=== PATIENT | male | born 1935 | race Caucasian/White ===

== ENCOUNTER 2019-03-09 15:53 | Inpatient (IN) | payer MEDICAID, MEDICARE ==
[~2019-03-09] VITALS: Ht 177.8 cm; Wt 101.6 kg
[~2019-03-09 15:53] MED LIST: ACET1TAB40 PO; ASPI-817 PO; ATOR40TA68 PO; CARV3.12 PO; OMEG100011 PO; TICA90TA PO
[2019-03-09] MEDS ORDERED: CEFAZOLIN 1 GM/50 ML (PMX) 50 ML IVPB SCH (16:00)
[2019-03-09] MEDS ORDERED: LACTATED RINGER'S 1,000 ML IV STA (16:00)
[2019-03-09] MEDS ORDERED: KETOROLAC 15 MG INJ IV STA (16:00)
[2019-03-09] MEDS ORDERED: DIPHTH/TET/ACEL PERTUSS (ADULT) 0.5 ML VIAL IM* ONE (16:00)
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
[2019-03-09] MEDS ORDERED: CLOP75TA19 PO (17:30)
[2019-03-09] MEDS ORDERED: METO-319 PO (17:30)
[2019-03-09] MEDS ORDERED: OXYCODONE/ACETAMINOPHEN (5/325) TAB PO ONE ×2 (17:30→20:30)
[2019-03-09] MEDS ORDERED: TAMS-14 PO (17:31)
[2019-03-09] MEDS ORDERED: ACETAMINOPHEN 325 MG TAB PO PRN (20:30)
[2019-03-09] MEDS ORDERED: NACL 0.9% 3 ML SYG IV SCH (20:30)
[2019-03-09] MEDS ORDERED: DOCUSATE SODIUM 100 MG CAP PO PRN (20:30)
[2019-03-09] MEDS ORDERED: ONDANSETRON 4 MG INJ ONE (21:00)
[2019-03-09] MEDS: ONDANSETRON 4 MG INJ IV PRN (21:03)
[2019-03-09 21:51] VITALS: BP 98/54; PULSE 88; RESP 18
[2019-03-09 22:00] VITALS: Ht 177.8 cm; Wt 101.6 kg
[2019-03-09] MEDS: SOD CHLORIDE 0.9% 1,000 ML IV SCH (23:04)
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
[2019-03-10] MEDS ORDERED: SOD CHLORIDE 0.9% 500 ML IV ONE
[2019-03-10] MEDS: morphine 2 MG INJ IV PRN ×3 (00:13→15:12)
[2019-03-10 02:27] VITALS: BP 116/57; PULSE 103; RESP 18
[2019-03-10] MEDS ORDERED: AL HYDROX/MG HYDROX/SIMETH 30 ML CUP PO PRN (03:00)
[2019-03-10 07:37] VITALS: BP 112/56; PULSE 93; RESP 18
[2019-03-10] MEDS: HYDROCODONE/APAP (5/325) TAB PO PRN (09:39)
--- NOTE | 2019-03-10 10:10 | CONS ---
Assessment/Plan Assessment/Plan Assessment/Plan (Daily) 1) L2 chance fracture 2) Diffuse idiopathic skeletal hyperostosis 84 year old male with L2 chance fracture and DISH. His TLICS score is 5, which means that internal fixation is recommended despite his advanced age. He has a history of cardiac stenting and clopidogrel use. He understands the risks/b enefits of surgery and would like to proceed. - OR tomorrow AM for T12-L4 fusion - Cardiac consult for risk stratification, postoperative management recs - Hold clopidogrel preop and x5 days postop - Will give platelets prior to skin incision - ICU x1 day postop Consultation Date/Type/Reason Admit Date/Time Mar 09, 2019 at 19:01 Date of Consultation: Mar 10, 2019 Type of Consult Neurosurgery Reason for Consultation L2 chance fracture Date/Time of Note DATE: 03/10/19 TIME: 10:00 Hx of Present Illness 84 year old male with history of cardiac stent in 2014, on plavix, who had a fall outside his house yesterday. He has a large right arm abrasion and was found on CT to have an L2 chance fracture and diffuse idiopathic skeletal hyperostosis. He has no weakness or numbness in his lower extremities. Past Medical History Home Meds Reported Medications Tamsulosin Hcl* (Flomax*) 0.4 Mg Cap.er.24h, 0.4 MG PO NEEDED, CAP 03/09/19 Clopidogrel Bisulfate* (Clopidogrel Bisulfate*) 75 Mg Tablet, 75 MG PO DAILY, #30 TAB 03/09/19 Metoprolol Succinate* (Toprol XL*) 50 Mg Tab.er.24h, 50 MG PO DAILY, #30 TAB 03/09/19 Discontinued Reported Medications [place]-3 Fatty Acids/Fish Oil* (Fish Oil *) 1,000 Mg Capsule, 1000 MG PO BID, CAP 01/20/15 Carvedilol* (Coreg*) 3.125 Mg Tablet, 3.125 MG PO BID, TAB 01/20/15 Atorvastatin* (Atorvastatin*) 40 Mg Tablet, 40 MG PO HS, TAB 01/20/15 Discontinued Scripts Acetaminophen-Codeine* (Acetaminophen-Cod #3*) 300-30 Mg Tab, 1 TAB PO Q4H PRN for PAIN, #15 TAB Prov:TAWNYA DONATO NP 11/25/15 Ticagrelor* (Brilinta*) 90 Mg Tablet, 90 MG PO BID for 30 Days Prov:KACY MURO GRAY MIXING OPERATOR 10/13/14 Aspirin* (Aspirin* EC) 81 Mg Tabec, 81 MG PO DAILY for 30 Days Prov:KACY MURO GRAY MIXING OPERATOR 10/13/14 Medications Current Medications Sodium Chloride 1,000 ml @ 75 mls/hr [id number] IV Last administered on 03/09/19 23:04; Admin Dose 75 MLS/HR; Start 03/10/19 at 00:00 IV Flush (NS 3 ml) 3 ml PER PROTOCOL IV ; Start 03/09/19 at 20:30 Ondansetron HCl (Zofran Inj) 4 mg Q6H PRN IV NAUSEA/VOMITING Last administered on 03/09/19 21:03; Admin Dose 4 MG; Start 03/09/19 at 20:30 Acetaminophen (Tylenol Tab) 650 mg Q6H PRN PO .PAIN 1-3 OR TEMP; Start 03/09/19 at 20:30 Acetaminophen/ Hydrocodone Bitart ([place] (5/325)) 1 tab Q6H PRN PO .MOD PAIN 4- 6 Last administered on 03/10/19at 09:39; Admin Dose 1 TAB; Start 03/09/19 at 20:30 Morphine Sulfate (morphine) 2 mg Q4H PRN IV .SEVERE PAIN 7-10 Last administered on 03/10/19at 08:28; Admin Dose 2 MG; Start 03/09/19 at 20:30 Docusate Sodium (Colace) 100 mg Q12H PRN PO .CONSTIPATION; Start 03/09/19 at 20:30 Bisacodyl (Dulcolax) 5 mg DAILY PRN PO .CONSTIPATION; Start 03/09/19 at 20:30 Al Hydrox/Mg Hydrox/Simethicone (Mag-Al Plus) 30 ml Q6H PRN PO GASTROINTESTINAL UPSET Last administered on 03/10/19 04:20; Admin Dose 30 ML; Start 03/10/19 at 03:00 Allergies: Coded Allergies: No Known Allergy (Unverified , 03/09/19) Social History Alcohol Use: none Smoking Status: Never smoker Drug Use: none Exam/Review of Systems Exam Vitals Vital Signs Date Temp Pulse Resp B/P (MAP) Pulse Ox O2 O2 Flow FiO2 Time Delivery Rate 03/10/19 98.7 93 18 112/56 94 07:37 (74) 03/09/19 Room Air 21:06 Intake and Output 03/09/19 03/09/19 03/10/19 1515:00 23:00 07:00 IntakeIntake Total 1075 ml OutputOutput Total 200 ml BalanceBalance 875 ml Exam 5/5 in bilateral lower extremities sensation intact Results Result Diagram: 03/10/19 0430 03/10/19 0430 Results 24hrs Laboratory Tests Test 03/09/19 16:30 03/09/19 22:49 03/10/19 04:30 White Blood Count 15.3 #H 16.8 H 13.7 H Red Blood Count 4.51 L 4.18 L 3.80 L Hemoglobin 13.7 L 12.6 L 11.6 L Hematocrit 41.2 L 38.3 L 34.8 L Mean Corpuscular Volume 91.4 91.6 91.6 Mean Corpuscular Hemoglobin 30.4 30.1 30.5 Mean Corpuscular Hemoglobin Concent 33.3 32.9 33.3 Red Cell Distribution Width 14.1 14.0 14.0 Platelet Count 300 285 269 Mean Platelet Volume 8.7 # 9.7 9.3 Immature Granulocytes % 1.800 H 0.700 H 0.400 Neutrophils % 79.7 H 88.1 H 85.4 H Lymphocytes % 9.8 L 2.5 L 5.3 L Monocytes % 7.5 8.3 8.8 Eosinophils % 0.7 0.3 0.0 Basophils % 0.5 0.1 0.1 Nucleated Red Blood Cells % 0.0 0.0 0.0 Immature Granulocytes # 0.280 H 0.110 H 0.060 H Neutrophils # 12.2 H 14.8 H 11.7 H Lymphocytes # 1.5 0.4 L 0.7 L Monocytes # 1.2 H 1.4 H 1.2 H Eosinophils # 0.1 0.1 0.0 Basophils # 0.1 0.0 0.0 Nucleated Red Blood Cells # 0.0 0.0 0.0 Prothrombin Time 14.1 Prothrombin Time Ratio 1.1 INR International Normalized Ratio 1.08 Activated Partial Thromboplast Time 31.5 Sodium Level 138 138 Potassium Level 4.4 4.7 Chloride Level 104 105 Carbon Dioxide Level 25 24 Anion Gap 9 9 Blood Urea Nitrogen 19 24 H Creatinine 0.96 0.89 Est Glomerular Filtrat Rate mL/min Glucose Level 122 160 Calcium Level 9.0 8.4 Total Bilirubin 0.7 0.7 Direct Bilirubin 0.00 0.00 Indirect Bilirubin 0.7 0.7 Aspartate Amino Transf (AST/SGOT) 27 31 Alanine Aminotransferase (ALT/SGPT) 23 26 Alkaline Phosphatase 79 57 Total Protein 7.2 6.3 Albumin 4.0 3.3 Globulin 3.20 3.00 Albumin/Globulin Ratio 1.25 1.10 Lipase 44 Segmented Neutrophils % (Manual) 80 H Band Neutrophils % (Manual) 5 H Lymphocytes % (Manual) 5 L Monocytes % (Manual) 10 Neutrophils # (Manual) 13.6 H Band Neutrophils # 0.8 H Lymphocytes (Manual) 0.8 Monocytes # (Manual) 1.6 H Platelet Estimate NORMAL Poikilocytosis 3+ Anisocytosis 1+ Hemoglobin A1c 5.7 Magnesium Level 1.9 Triglycerides Level 31 Cholesterol Level 134 LDL Cholesterol, Calculated 82 HDL Cholesterol 46 Cholesterol/HDL Ratio 2.9 Thyroid Stimulating Hormone (TSH) 1.200 Medications Medication Current Medications Sodium Chloride 1,000 ml @ 75 mls/hr [id number] IV Last administered on 03/09/19at 23:04; Admin Dose 75 MLS/HR; Start 03/10/19 at 00:00 IV Flush (NS 3 ml) 3 ml PER PROTOCOL IV ; Start 03/09/19 at 20:30 Ondansetron HCl (Zofran Inj) 4 mg Q6H PRN IV NAUSEA/VOMITING Last administered on 03/09/19at 21:03; Admin Dose 4 MG; Start 03/09/19 at 20:30 Acetaminophen (Tylenol Tab) 650 mg Q6H PRN PO .PAIN 1-3 OR TEMP; Start 03/09/19 at 20:30 Acetaminophen/ Hydrocodone Bitart ([place] (5/325)) 1 tab Q6H PRN PO .MOD PAIN 4- 6 Last administered on 03/10/19at 09:39; Admin Dose 1 TAB; Start 03/09/19 at 20:30 Morphine Sulfate (morphine) 2 mg Q4H PRN IV .SEVERE PAIN 7-10 Last administered on 03/10/19at 08:28; Admin Dose 2 MG; Start 03/09/19 at 20:30 Docusate Sodium (Colace) 100 mg Q12H PRN PO .CONSTIPATION; Start 03/09/19 at 20:30 Bisacodyl (Dulcolax) 5 mg DAILY PRN PO .CONSTIPATION; Start 03/09/19 at 20:30 Al Hydrox/Mg Hydrox/Simethicone (Mag-Al Plus) 30 ml Q6H PRN PO GASTROINTESTINAL UPSET Last administered on 03/10/19at 04:20; Admin Dose 30 ML; Start 03/10/19 at 03:00 REYNA STEELE MD Mar 10, 2019 10:10
--- NOTE | 2019-03-10 11:53 | PREAC ---
Date/Time of Note Date/Time of Note DATE: 03/10/19 TIME: 11:52 Anesthesia Eval and Record Evaluation Time Pre-Procedure Interview DATE: 03/10/19 TIME: 11:52 Age 84 Sex male NPO: 8 hrs Preoperative diagnosis L2 chance fracture Planned procedure T12 -L4 POSTERIOR FUSION Past Medical History Past Medical History: Includes Cardio: HTN, [place], CAD, PTCA/Stent Neuro: Other (Ankylosing spondylitis) GI: Obesity Surgery & Anesthesia Issues No known issue Meds Anticoagulation: No Beta Yanelis within 24 hr: No Reason Beta Yanelis not given: Pt. not on B-Yanelis Reported Medications Tamsulosin Hcl* (Flomax*) 0.4 Mg Cap.er.24h, 0.4 MG PO NEEDED, CAP 03/09/19 Clopidogrel Bisulfate* (Clopidogrel Bisulfate*) 75 Mg Tablet, 75 MG PO DAILY, #30 TAB 03/09/19 Metoprolol Succinate* (Toprol XL*) 50 Mg Tab.er.24h, 50 MG PO DAILY, #30 TAB 03/09/19 Discontinued Reported Medications [place]-3 Fatty Acids/Fish Oil* (Fish Oil *) 1,000 Mg Capsule, 1000 MG PO BID, CAP 01/20/15 Carvedilol* (Coreg*) 3.125 Mg Tablet, 3.125 MG PO BID, TAB 01/20/15 Atorvastatin* (Atorvastatin*) 40 Mg Tablet, 40 MG PO HS, TAB 01/20/15 Discontinued Scripts Acetaminophen-Codeine* (Acetaminophen-Cod #3*) 300-30 Mg Tab, 1 TAB PO Q4H PRN for PAIN, #15 TAB Prov:TAWNYA DONATO NP 11/25/15 Ticagrelor* (Brilinta*) 90 Mg Tablet, 90 MG PO BID for 30 Days Prov:KACY MURO PORCELAIN SLUSHER 10/13/14 Aspirin* (Aspirin* EC) 81 Mg Tabec, 81 MG PO DAILY for 30 Days Prov:KACY MURO PORCELAIN SLUSHER 10/13/14 Current Medications Sodium Chloride 1,000 ml @ 75 mls/hr [id number] IV Last administered on 03/09/19at 23:04; Admin Dose 75 MLS/HR; Start 03/10/19 at 00:00 IV Flush (NS 3 ml) 3 ml PER PROTOCOL IV ; Start 03/09/19 at 20:30 Ondansetron HCl (Zofran Inj) 4 mg Q6H PRN IV NAUSEA/VOMITING Last administered on 03/09/19at 21:03; Admin Dose 4 MG; Start 03/09/19 at 20:30 Acetaminophen (Tylenol Tab) 650 mg Q6H PRN PO .PAIN 1-3 OR TEMP; Start 03/09/19 at 20:30 Acetaminophen/ Hydrocodone Bitart ([place] (5/325)) 1 tab Q6H PRN PO .MOD PAIN 4- 6 Last administered on 03/10/19at 09:39; Admin Dose 1 TAB; Start 03/09/19 at 20:30 Morphine Sulfate (morphine) 2 mg Q4H PRN IV .SEVERE PAIN 7-10 Last administered on 03/10/19at 08:28; Admin Dose 2 MG; Start 03/09/19 at 20:30 Docusate Sodium (Colace) 100 mg Q12H PRN PO .CONSTIPATION; Start 03/09/19 at 20:30 Bisacodyl (Dulcolax) 5 mg DAILY PRN PO .CONSTIPATION; Start 03/09/19 at 20:30 Al Hydrox/Mg Hydrox/Simethicone (Mag-Al Plus) 30 ml Q6H PRN PO GASTROINTESTINAL UPSET Last administered on 03/10/19at 04:20; Admin Dose 30 ML; Start 03/10/19 at 03:00 Meds reviewed: Yes Allergies Coded Allergies: No Known Allergy (Unverified , 03/09/19) Allergies Reviewed: Yes Labs/Studies Labs Reviewed: Reviewed by anesthesiologist Result Diagram: 03/10/19 0430 03/10/19 0430 Laboratory Tests 03/10/19 04:30 test: N/A Pre-procedure Exam Last vitals Vital Signs Date Temp Pulse Resp B/P (MAP) Pulse Ox O2 O2 Flow FiO2 Time Delivery Rate 03/10/19 98.7 93 18 112/56 94 07:37 (74) 03/09/19 Room Air 21:06 Airway: Adequate mouth opening Mallampati: Mallampati II Teeth: Normal Lung: Normal Heart: Normal ASA Physical Status ASA physical status: 3 Emergency: None Planned Anesthetic General/MAC: ETT Pre-operative Attestations Prior to commencing anesthesia and surgery, the patient was re-evaluated, there was verification of: *The patient's identity *The results of appropriate recent lab work and preoperative vital signs *The above evaluation not changing prior to induction *Anesthetic plan, risk benefits, alternative and complications discussed with patient/family; questions answered; patient/family understands, accepts and wishes to proceed. JOSE KOROMA Mar 10, 2019 11:53
--- NOTE | 2019-03-10 12:02 | PN ---
Date/Time of Note Date/Time of Note DATE: 03/10/19 TIME: 11:56 Assessment/Plan VTE Prophylaxis Risk score (from Ns)>0 risk: 6 SCD applied (from Ns): Yes Pharmacological prophylaxis: NA/contraindicated Pharm contraindication: bleeding Lines/Catheters IV Catheter Type (from Nrsg): Peripheral IV Assessment/Plan Assessment/Plan 84 yo man with history of VA 5 years ago with PCI on plavix who presents with traumatic fracture of L2 vertebral body. # acute fracture of L2 vertebral body: - With adjacent paraspinal hematoma. - Pain management. - Bed rest until OR - Dr. Quesada following. - NPO except meds in case of procedure. - The patient reports good cardiovascular fitness; can climb two flights of stairs without dyspnea or chest pain so METS>4. Medically optimized for high risk spinal surgery with no further medical or cardiac workup. # Ankylosing spondylitis: seen on CT scan. Recommendation for spinal MRI in the setting of fracture. Will defer further MRI imaging to neurosurgery. # CAD: - hx of VA 5 years ago, on plavix but had skin rash to aspirin so he isn't taking it. - Currently holding plavix in the setting of hematoma plus pre-operatively. - Will consult Dr. Peña also. # dvt and gi prop: scds, no gi proph indicated Result Diagram: 03/10/1942903/10/19429 Subjective 24 Hr Interval Summary Free Text/Dictation No acute overnight events. Patient feeling well. Plan for OR. Exam/Review of Systems Exam Vitals Vital Signs Date Temp Pulse Resp B/P (MAP) Pulse Ox O2 O2 Flow FiO2 Time Delivery Rate 03/10/19 98.7 93 18 112/56 94 07:37 (74) 03/09/19 Room Air 21:06 Intake and Output 03/09/19 03/09/19 03/10/19 1515:00 23:00 07:00 IntakeIntake Total 1075 ml OutputOutput Total 200 ml BalanceBalance 875 ml Exam General: Obese man currently lying in bed, no acute distress HEENT: Atraumatic, normocephalic. The pupils are equal, round and reactive. Extraocular motor are intact Neck: Supple with full range of motion. No rigidity or meningismus Chest: Nontender Lungs: Clear to auscultation bilaterally no crackles rales or wheezing Heart: Regular rate and rhythm, 3/6 systolic ejection murmur loudest at LLSB. Abdomen: Soft , nontender, nondistended , bowel sounds are present. No guarding no rebound tenderness , No masses or organomegaly. No costovertebral temporal angle mass Extremities: Normal to inspection, no edema no cyanosis Skin: Extensive bruising of the back Results Results 24hrs Laboratory Tests Test 03/09/19 16:30 03/09/19 22:49 03/10/19 04:30 White Blood Count 15.3 #H 16.8 H 13.7 H Red Blood Count 4.51 L 4.18 L 3.80 L Hemoglobin 13.7 L 12.6 L 11.6 L Hematocrit 41.2 L 38.3 L 34.8 L Mean Corpuscular Volume 91.4 91.6 91.6 Mean Corpuscular Hemoglobin 30.4 30.1 30.5 Mean Corpuscular Hemoglobin Concent 33.3 32.9 33.3 Red Cell Distribution Width 14.1 14.0 14.0 Platelet Count 300 285 269 Mean Platelet Volume 8.7 # 9.7 9.3 Immature Granulocytes % 1.800 H 0.700 H 0.400 Neutrophils % 79.7 H 88.1 H 85.4 H Lymphocytes % 9.8 L 2.5 L 5.3 L Monocytes % 7.5 8.3 8.8 Eosinophils % 0.7 0.3 0.0 Basophils % 0.5 0.1 0.1 Nucleated Red Blood Cells % 0.0 0.0 0.0 Immature Granulocytes # 0.280 H 0.110 H 0.060 H Neutrophils # 12.2 H 14.8 H 11.7 H Lymphocytes # 1.5 0.4 L 0.7 L Monocytes # 1.2 H 1.4 H 1.2 H Eosinophils # 0.1 0.1 0.0 Basophils # 0.1 0.0 0.0 Nucleated Red Blood Cells # 0.0 0.0 0.0 Prothrombin Time 14.1 Prothrombin Time Ratio 1.1 INR International Normalized Ratio 1.08 Activated Partial Thromboplast Time 31.5 Sodium Level 138 138 Potassium Level 4.4 4.7 Chloride Level 104 105 Carbon Dioxide Level 25 24 Anion Gap 9 9 Blood Urea Nitrogen 19 24 H Creatinine 0.96 0.89 Est Glomerular Filtrat Rate mL/min Glucose Level 122 160 Calcium Level 9.0 8.4 Total Bilirubin 0.7 0.7 Direct Bilirubin 0.00 0.00 Indirect Bilirubin 0.7 0.7 Aspartate Amino Transf (AST/SGOT) 27 31 Alanine Aminotransferase (ALT/SGPT) 23 26 Alkaline Phosphatase 79 57 Total Protein 7.2 6.3 Albumin 4.0 3.3 Globulin 3.20 3.00 Albumin/Globulin Ratio 1.25 1.10 Lipase 44 Segmented Neutrophils % (Manual) 80 H Band Neutrophils % (Manual) 5 H Lymphocytes % (Manual) 5 L Monocytes % (Manual) 10 Neutrophils # (Manual) 13.6 H Band Neutrophils # 0.8 H Lymphocytes (Manual) 0.8 Monocytes # (Manual) 1.6 H Platelet Estimate NORMAL Poikilocytosis 3+ Anisocytosis 1+ Hemoglobin A1c 5.7 Magnesium Level 1.9 Triglycerides Level 31 Cholesterol Level 134 LDL Cholesterol, Calculated 82 HDL Cholesterol 46 Cholesterol/HDL Ratio 2.9 Thyroid Stimulating Hormone (TSH) 1.200 Medications Medication Current Medications Sodium Chloride 1,000 ml @ 75 mls/hr [id number] IV Last administered on 03/09/19at 23:04; Admin Dose 75 MLS/HR; Start 03/10/19 at 00:00 IV Flush (NS 3 ml) 3 ml PER PROTOCOL IV ; Start 03/09/19 at 20:30 Ondansetron HCl (Zofran Inj) 4 mg Q6H PRN IV NAUSEA/VOMITING Last administered on 03/09/19at 21:03; Admin Dose 4 MG; Start 03/09/19 at 20:30 Acetaminophen (Tylenol Tab) 650 mg Q6H PRN PO .PAIN 1-3 OR TEMP; Start 03/09/19 at 20:30 Acetaminophen/ Hydrocodone Bitart ([place] (5/325)) 1 tab Q6H PRN PO .MOD PAIN 4- 6 Last administered on 03/10/19at 09:39; Admin Dose 1 TAB; Start 03/09/19 at 20:30 Morphine Sulfate (morphine) 2 mg Q4H PRN IV .SEVERE PAIN 7-10 Last administered on 03/10/19at 08:28; Admin Dose 2 MG; Start 03/09/19 at 20:30 Docusate Sodium (Colace) 100 mg Q12H PRN PO .CONSTIPATION; Start 03/09/19 at 20:30 Bisacodyl (Dulcolax) 5 mg DAILY PRN PO .CONSTIPATION; Start 03/09/19 at 20:30 Al Hydrox/Mg Hydrox/Simethicone (Mag-Al Plus) 30 ml Q6H PRN PO GASTROINTESTINAL UPSET Last administered on 03/10/19at 04:20; Admin Dose 30 ML; Start 03/10/19 at 03:00 MICKEY CHAMBERS MD Mar 10, 2019 12:02
--- NOTE | 2019-03-10 12:29 | RADRPT ---
Vent Rate: 92 bpm RR Interval: 656 msec FL Interval: 191 msec QRS Duration: 93 msec QT Interval: 362 msec QTC Interval: 447 msec P-R-T [place]: 61 - -37 - 52 degrees Sinus rhythm...normal P axis, V-rate 50- 99 Left axis deviation...QRS axis (-30,-90) Electronically Signed By: Jerod Morales
[2019-03-10] MEDS: SOD CHLORIDE 0.9% 1,000 ML IV SCH (13:20)
[2019-03-10 14:12] VITALS: BP 120/58; PULSE 93; RESP 18
[2019-03-10] MEDS ORDERED: morphine 4 MG/ML VIAL IV STA (16:41)
[2019-03-10] MEDS: ONDANSETRON 4 MG INJ IV PRN (17:16)
--- NOTE | 2019-03-10 18:52 | RADRPT ---
Echocardiogram Report Patient Name: MAL BENZPatient ID: [id number] : 1935 (84y 1m)Study Date: 03/10/2019 1:42:43 PM Gender: MAccession #: [id number] Tech: Galo Atkins [facility] Location: [address] Ref.Physician: MICKEY PEÑA Height(Cm): BSA: Weight(Kg): Quality: AdequateOrder Physician: MICKEY PEÑA Account #: Procedures: Echocardiographic Report: Transthoracic echocardiogram with complete 2D, M-Mode, and doppler examination. Indications: Pre-op. Measurements: 2D/M Mode Doppler Measurement Value Normal Range Measurement Value Normal Range LVIDd 2D 4.0 [ 4.2 - 5.8 ] cm JESUS ALBERTO VTI 1.5 [ 2.0 - 4.0 ] cm2 LVIDs 2D 2.7 [ 2.5 - 4.0 ] cm AV Mean Tai 1.8 [ 70.0 - 90.0 ] cm/sec LVPWd 2D 1.3 [ 0.6 - 1.0 ] cm AV Mean PG 15.0 [ 2.0 - 4.0 ] mmHg IVSd 2D 1.5 [ 0.6 - 1.0 ] cm AV VTI 51.0 cm AoR Diam 2D 3.2 [ 2.6 - 3.4 ] cm LVOT Mean Tai 0.8 [ 60.0 - 80.0 ] cm/sec EDV 2D 69.2 [ 62.0 - 150.0 ] ml LVOT Mean PG 3.0 [ 1.0 - 3.0 ] mmHg ESV 2D 26.5 [ 21.0 - 61.0 ] ml LVOT Peak Tai 1.2 [ 70.0 - 110.0 ] cm/sec EF 2D 61.7 [ 52.0 - 72.0 ] percent LVOT Peak PG 5.0 [ 2.0 - 6.0 ] mmHg LA Dimen 2D 4.3 [ 3.0 - 4.0 ] cm LVOT VTI 24.8 [ 20.0 - 30.0 ] cm LVOT Diam 2.0 [ 2.3 - 2.9 ] cm MV E Peak Tai 0.9 [ 60.0 - 130.0 ] cm/sec MV A Peak Tai 1.2 [ 100.0 - 120.0 ] cm/sec MV E/A 0.7 [ 0.8 - 1.5 ] ratio MV Decel Time 190 [ 104 - 258 ] msec Lat E` Tai 0.1 [ 10.0 - 15.0 ] cm/sec Lateral E/E` 9.7 [ 1.0 - 2.0 ] ratio MV E/A 0.7 [ 0.8 - 1.5 ] ratio TR Peak Tai 2.5 [ 100.0 - 280.0 ] cm/sec TR Peak PG 25.0 mmHg RVSP 28.0 [ 10.0 - 36.0 ] mmHg Findings: Left Ventricle: Normal left ventricular systolic function. Normal left ventricular cavity size. Moderate asymmetric septal hypertrophy. Ejection fraction is visually estimated at 60 %. Tissue Doppler/Mitral Doppler indices are consistent with impaired relaxation (Stage I diastolic dysfunction). Right Ventricle: Normal right ventricular size. Normal right ventricular systolic function. Left Atrium: There is mild enlargement of left atrium. Right Atrium: The right atrium is normal in size. Mitral Valve: Mild mitral leaflet calcification. Mild mitral annular calcification. Trace mitral regurgitation. Aortic Valve: Mild aortic stenosis. Aortic valve Max velocity 2.58 m/sec. Max PG 26.70 mmHg. Mean PG 15.00 mmHg. Aortic valve area 1.53 cm2. Aortic cusps appear moderately calcified. Tricuspid Valve: Normal appearance of the tricuspid valve. The estimated Peak RVSP is 28 mmHg. There is mild tricuspid regurgitation. Pericardium: Normal pericardium with no significant pericardial effusion. There is an anterior echo free space consistent with epicardial fat pad. Aorta: Normal aortic root. IVC: Normal size and normal respiratory collapse consistent with normal right atrial pressure. Conclusions: Normal left ventricular systolic function. Normal left ventricular cavity size. Moderate asymmetric septal hypertrophy. Ejection fraction is visually estimated at 60 %. Tissue Doppler/Mitral Doppler indices are consistent with impaired relaxation (Stage I diastolic dysfunction). There is mild enlargement of left atrium. Mild mitral leaflet calcification. Mild mitral annular calcification. Trace mitral regurgitation. Mild aortic stenosis. Aortic valve Max velocity 2.58 m/sec. Max PG 26.70 mmHg. Mean PG 15.00 mmHg. Aortic valve area 1.53 cm2. Aortic cusps appear moderately calcified. Normal appearance of the tricuspid valve. The estimated Peak RVSP is 28 mmHg. There is mild tricuspid regurgitation. Electronically Signed By: Mickey Peña 2019-03-10 18:51:25 PDT
[2019-03-10 20:06] VITALS: BP 123/58; PULSE 100; RESP 20; RESP 90
[2019-03-11] VITALS (31 sets, daily range): BP systolic 94–148; BP diastolic 51–81; PULSE 88–136; RESP 9–27
[2019-03-11] MEDS: SOD CHLORIDE 0.9% 1,000 ML IV SCH ×2 (04:10→18:36)
[2019-03-11] MEDS ORDERED: GELATIN SIZE 100 SPONGE ONE (06:54)
[2019-03-11] MEDS ORDERED: THROMBIN 5000 UNIT VIAL ONE (06:54)
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
[2019-03-11] MEDS ORDERED: FAMOTIDINE 20 MG INJ ONE (08:46)
[2019-03-11] MEDS ORDERED: PROPOFOL 20 ML ONE (08:46)
[2019-03-11] MEDS ORDERED: DEXAMETHASONE 4 MG/ML 5 ML INJ ONE (08:46)
[2019-03-11] MEDS ORDERED: LIDOCAINE 2% (SDV) 5 ML INJ ONE (08:46)
[2019-03-11] MEDS ORDERED: CEFAZOLIN 1 GM INJ ONE (08:46)
[2019-03-11] MEDS ORDERED: ONDANSETRON 4 MG INJ ONE (08:46)
[2019-03-11] MEDS ORDERED: SUCCINYLCHOLINE CHLORIDE 100 MG/5 ML SYG IV ONE (08:46)
[2019-03-11] MEDS ORDERED: ROCURONIUM 50 MG INJ ONE ×2 (08:46→11:15)
[2019-03-11] MEDS ORDERED: FENTAnyl 50 MCG/ML VIAL IV PRN ×3 (09:30→13:30)
[2019-03-11] MEDS ORDERED: ONDANSETRON 4 MG INJ IV PRN ×2 (09:30→12:30)
[2019-03-11] MEDS ORDERED: HYDROmorphONE 0.5 MG/0.5 ML SYG IV PRN ×2 (09:30)
[2019-03-11] MEDS ORDERED: MEPERIDINE 25 MG INJ IV PRN ×2 (09:30→12:30)
[2019-03-11] MEDS ORDERED: THROMBIN 5000 UNIT VIAL ZFS ONE (09:53)
[2019-03-11] MEDS ORDERED: SURGIFOAM POWDER 1 GM KIT TOP ONE (09:53)
[2019-03-11] MEDS ORDERED: PHENYLephrine (100 MCG/ML) 10ML SYG ONE (10:39)
[2019-03-11] MEDS ORDERED: SUGAMMADEX SODIUM 200 MG/2 ML VIAL IV ONE ×2 (11:56→11:58)
[2019-03-11] MEDS ORDERED: BACITRACIN/POLYMYXIN 28.35 GM OINT TOP ONE (12:00)
[2019-03-11] MEDS ORDERED: HYDROmorphONE 1 MG/5 ML IV SYRINGE IV PRN ×3 (12:30)
[2019-03-11] MEDS ORDERED: PROCHLORPERAZINE 10 MG INJ IV PRN (12:30)
--- NOTE | 2019-03-11 12:37 | PAC ---
Date/Time of Note Date/Time of Note DATE: 03/11/19 TIME: 12:36 Post-Anesthesia Notes Post-Anesthesia Note Last documented vital signs Vital Signs Date Temp Pulse Resp B/P (MAP) Pulse Ox O2 O2 Flow FiO2 Time Delivery Rate 03/11/19 115 126/57 94 Room Air 06:00 (80) 03/11/19 98.6 02:40 03/10/19 20 20:06 Activity: WNL Respiratory function: WNL Cardiovascular function: WNL Mental status: Baseline Pain reasonably controlled: Yes Hydration appropriate: Yes Nausea/Vomiting absent: Yes Comments BP: 140/78 HR: 93 RR: 15 T: 98.4 SaO2: 97% ARCADIO GALAVIZ MD Mar 11, 2019 12:37
[2019-03-11] MEDS ORDERED: LABETALOL HCL 20MG INJ IV PRN (13:00)
[2019-03-11] MEDS: CEFAZOLIN 1 GM/50 ML (PMX) 50 ML IVPB SCH ×2 (14:49→21:13)
--- NOTE | 2019-03-11 14:59 | RADRPT ---
Vent Rate: 92 bpm RR Interval: 656 msec AR Interval: 191 msec QRS Duration: 93 msec QT Interval: 362 msec QTC Interval: 447 msec P-R-T [place]: 61 - -37 - 52 degrees Sinus rhythm...normal P axis, V-rate 50- 99 Left axis deviation...QRS axis (-30,-90) Electronically Signed By: Jerod Morales
--- NOTE | 2019-03-11 15:34 | PN ---
Date/Time of Note Date/Time of Note DATE: 03/11/19 TIME: 15:31 Assessment/Plan VTE Prophylaxis Risk score (from Ns)>0 risk: 7 [place] [facility] [place] Pharmacological prophylaxis: NA/contraindicated Pharm contraindication: surgical contra Lines/Catheters IV Catheter Type (from Nrsg): Peripheral IV Assessment/Plan Assessment/Plan 84 yo man with history of OR 5 years ago with PCI on plavix who presents with traumatic fracture of L2 vertebral body. # acute fracture of L2 vertebral body: - With adjacent paraspinal hematoma. - Pain management. - Dr. Quesada following. - s/p operative fixation 03/11 # Ankylosing spondylitis: seen on CT scan. Recommendation for spinal MRI in the setting of fracture. Will defer further MRI imaging to neurosurgery. # CAD: - hx of OR 5 years ago, on plavix but had skin rash to aspirin so he isn't taking it. - Currently holding plavix in the setting of hematoma plus pre-operatively. - Dr Peña following # dvt and gi prop: scds, no gi proph indicated Result Diagram: 03/10/19 0430 03/10/19 0430 Subjective 24 Hr Interval Summary Free Text/Dictation Taken for surgery this morning. Seen in PACU afterwards, confused. Admit to ICU. Exam/Review of Systems Exam Vitals Vital Signs Date Temp Pulse Resp B/P (MAP) Pulse Ox O2 O2 Flow FiO2 Time Delivery Rate 03/11/19 92 14 97/61 (73) 97 Nasal 2.0 14:01 Cannula 03/11/19 98.2 13:26 Intake and Output 03/10/19 03/10/19 03/11/19 1515:00 23:00 07:00 IntakeIntake Total 750 ml 140 ml OutputOutput Total 150 ml 100 ml 50 ml BalanceBalance -150 ml 650 ml 90 ml Exam General: Obese man currently lying in bed, no acute distress HEENT: Atraumatic, normocephalic. The pupils are equal, round and reactive. Extraocular motor are intact Neck: Supple with full range of motion. No rigidity or meningismus Chest: Nontender Lungs: Clear to auscultation bilaterally no crackles rales or wheezing Heart: Regular rate and rhythm, 3/6 systolic ejection murmur loudest at LLSB. Abdomen: Soft , nontender, nondistended , bowel sounds are present. No guarding no rebound tenderness , No masses or organomegaly. No costovertebral temporal angle mass Extremities: Normal to inspection, no edema no cyanosis Skin: Extensive bruising of the back Results Results 24hrs Laboratory Tests Test 03/11/19 04:27 Triglycerides Level 51 Cholesterol Level 125 LDL Cholesterol, Calculated 71 HDL Cholesterol 44 Cholesterol/HDL Ratio 2.8 Medications Medication Current Medications Sodium Chloride 1,000 ml @ 100 mls/hr Q10H IV Last administered on 03/11/19at 04:10; Admin Dose 75 MLS/HR; Start 03/10/19 at 00:00 IV Flush (NS 3 ml) 3 ml PER PROTOCOL IV ; Start 03/09/19 at 20:30 Ondansetron HCl (Zofran Inj) 4 mg Q6H PRN IV NAUSEA/VOMITING Last administered on 03/10/19at 17:16; Admin Dose 4 MG; Start 03/09/19 at 20:30 Acetaminophen (Tylenol Tab) 650 mg Q6H PRN PO .PAIN 1-3 OR TEMP; Start 03/09/19 at 20:30 Acetaminophen/ Hydrocodone Bitart ([place] (5/325)) 1 tab Q6H PRN PO .MOD PAIN 4- 6 Last administered on 03/10/19at 09:39; Admin Dose 1 TAB; Start 03/09/19 at 20:30 Morphine Sulfate (morphine) 2 mg Q4H PRN IV .SEVERE PAIN 7-10 Last administered on 03/10/19at 15:12; Admin Dose 2 MG; Start 03/09/19 at 20:30 Docusate Sodium (Colace) 100 mg Q12H PRN PO .CONSTIPATION; Start 03/09/19 at 20:30 Bisacodyl (Dulcolax) 5 mg DAILY PRN PO .CONSTIPATION; Start 03/09/19 at 20:30 Al Hydrox/Mg Hydrox/Simethicone (Mag-Al Plus) 30 ml Q6H PRN PO GASTROINTESTINAL UPSET Last administered on 03/10/19at 04:20; Admin Dose 30 ML; Start 03/10/19 at 03:00 Hydromorphone HCl (Dilaudid) 0.2 mg PACU PRN IV MILD PAIN 1-3; Start 03/11/19 at 12:30; Stop 03/11/19 at 18:00 Hydromorphone HCl (Dilaudid) 0.4 mg PACU PRN IV MOD PAIN 4-6 Last administered on 03/11/19at 14:52; Admin Dose 0.4 MG; Start 03/11/19 at 12:30; Stop 03/11/19 at 18:00 Hydromorphone HCl (Dilaudid) 0.6 mg PACU PRN IV SEVERE PAIN 7-10; Start 03/11/19 at 12:30; Stop 03/11/19 at 18:00 Fentanyl (Sublimaze) 25 mcg PACU ORDER PRN IV MILD PAIN 1-3 Last administered on 03/11/19at 14:53; Admin Dose 25 MCG; Start 03/11/19 at 12:30; Stop 03/11/19 at 18:00 Ondansetron HCl (Zofran Inj) 4 mg PACU ORDER PRN IV NAUSEA/VOMITING; Start 03/11/19 at 12:30; Stop 03/11/19 at 18:00 Prochlorperazine (Compazine Inj) 5 mg PACU ORDER PRN IV NAUSEA/VOMITING; Start 03/11/19 at 12:30; Stop 03/11/19 at 18:00 Meperidine HCl (Demerol) 12.5 mg PACU ORDER PRN IV .RIGORS; Start 03/11/19 at 12:30; Stop 03/11/19 at 18:00 Labetalol HCl (Labetalol) 5 mg PACU ORDER PRN IV HIGH BLOOD PRESSURE; Start 03/11/19 at 13:00; Stop 03/11/19 at 18:00 Fentanyl (Sublimaze) 50 mcg Q2H PRN IV SEVERE PAIN LEVEL 7-10; Start 03/11/19 at 13:30 Cefazolin Sodium 50 ml @ 100 mls/hr Q8 IVPB Last administered on 03/11/19at 14:49; Admin Dose 100 MLS/HR; Start 03/11/19 at 14:00 MICKEY CHAMBERS MD Mar 11, 2019 15:34
[2019-03-11] MEDS: morphine 2 MG INJ IV PRN (19:02)
[2019-03-11] MEDS: HYDROCODONE/APAP (5/325) TAB PO PRN (20:37)
--- NOTE | 2019-03-11 21:00 | CONS ---
Assessment/Plan Assessment/Plan Hospital Course (Demo Recall) IMPRESSION: 1. Preoperative evaluation prior to surgery for traumatic L2 fracture with associated hematoma.-Now post- s/p t12-L4 arthrodesis 2. No portal hypertension, but on a beta carlos at baseline. 3. History of percutaneous transluminal coronary angioplasty and stent placement, most recently 2014.-NL EF by echo and no sig valve abnl 4. 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 5. Possible dyslipidemia by medications although the patient denies. 6. Traumatic L2 fracture. 7. History of lymphedema per patient, currently resolved. 8. Ankylosing spondylitis by CT. 9. Severe osteoarthritis. Recc: -IN ICU s/p surgery -holding plavix and ok as mutiple years s/p most recent stent placement -pain control -Continue abx prophyaxis -local wound care Consultation Date/Type/Reason Admit Date/Time Mar 09, 2019 at 19:01 Initial Consult Date 03/10/19 Type of Consult Cardiology Reason for Consultation preop Requesting Provider: MICKEY CHAMBERS MD Date/Time of Note DATE: 03/11/19 TIME: 20:56 Exam/Review of Systems Vital Signs Vitals Vital Signs Date Temp Pulse Resp B/P (MAP) Pulse Ox O2 O2 Flow FiO2 Time Delivery Rate 03/11/19 99 18 105/61 97 Nasal 2.0 18:00 (76) Cannula 03/11/19 98.4 17:55 Intake and Output 03/10/19 03/10/19 03/11/19 1515:00 23:00 07:00 IntakeIntake Total 750 ml 140 ml OutputOutput Total 150 ml 100 ml 50 ml BalanceBalance -150 ml 650 ml 90 ml Exam Exam Review of Systems: CONSTITUTIONAL: No fevers, chills. PULMONARY: No sob CARDIOVASCULAR: No chest pain/palpitations GASTROINTESTINAL: No nausea/vomiting. GENITOURINARY: No hematuria/dysuria. MUSCULOSKELETAL: mild back pain s/p surgery PSYCHIATRIC: The patient denies depression. NEUROLOGIC: No weakness Constitutional: alert Psych: no complaints Head: normocephalic ENMT: mucosa pink and moist Neck: supple, jvd (8 cm wter) Respiratory: clear to auscultation Cardiovascular: regular rate and rhythm Gastrointestinal: soft, non-tender Musculoskeletal: muscle tone (normal) Extremities: edema (none) Neurological: other (No focal deficits) Labs Result Diagram: 03/10/19 0430 03/10/19 0430 Results 24hrs Laboratory Tests Test 03/11/19 04:27 Triglycerides Level 51 Cholesterol Level 125 LDL Cholesterol, Calculated 71 HDL Cholesterol 44 Cholesterol/HDL Ratio 2.8 Medications Medications Current Medications Sodium Chloride 1,000 ml @ 100 mls/hr Q10H IV Last administered on 03/11/19at 18:36; Admin Dose 100 MLS/HR; Start 03/10/19 at 00:00 IV Flush (NS 3 ml) 3 ml PER PROTOCOL IV ; Start 03/09/19 at 20:30 Ondansetron HCl (Zofran Inj) 4 mg Q6H PRN IV NAUSEA/VOMITING Last administered on 03/10/19at 17:16; Admin Dose 4 MG; Start 03/09/19 at 20:30 Acetaminophen (Tylenol Tab) 650 mg Q6H PRN PO .PAIN 1-3 OR TEMP; Start 03/09/19 at 20:30 Acetaminophen/ Hydrocodone Bitart ([place] (5/325)) 1 tab Q6H PRN PO .MOD PAIN 4- 6 Last administered on 03/11/19at 20:37; Admin Dose 1 TAB; Start 03/09/19 at 20:30 Morphine Sulfate (morphine) 2 mg Q4H PRN IV .SEVERE PAIN 7-10 Last administered on 03/11/19at 19:02; Admin Dose 2 MG; Start 03/09/19 at 20:30 Docusate Sodium (Colace) 100 mg Q12H PRN PO .CONSTIPATION; Start 03/09/19 at 20:30 Bisacodyl (Dulcolax) 5 mg DAILY PRN PO .CONSTIPATION; Start 03/09/19 at 20:30 Al Hydrox/Mg Hydrox/Simethicone (Mag-Al Plus) 30 ml Q6H PRN PO GASTROINTESTINAL UPSET Last administered on 03/10/19at 04:20; Admin Dose 30 ML; Start 03/10/19 at 03:00 Fentanyl (Sublimaze) 50 mcg Q2H PRN IV SEVERE PAIN LEVEL 7-10; Start 03/11/19 at 13:30 Cefazolin Sodium 50 ml @ 100 mls/hr Q8 IVPB Last administered on 03/11/19at 14:49; Admin Dose 100 MLS/HR; Start 03/11/19 at 14:00 MICKEY SOLITARIO Mar 11, 2019 21:00
[2019-03-12] VITALS (24 sets, daily range): BP systolic 109–167; BP diastolic 42–99; PULSE 91–108; RESP 9–24
[2019-03-12] MEDS: SOD CHLORIDE 0.9% 1,000 ML IV SCH ×3 (02:50→17:18)
[2019-03-12] MEDS: HYDROCODONE/APAP (5/325) TAB PO PRN (05:03)
[2019-03-12] MEDS: CEFAZOLIN 1 GM/50 ML (PMX) 50 ML IVPB SCH ×3 (06:45→21:26)
--- NOTE | 2019-03-12 12:23 | CONS ---
Assessment/Plan Assessment/Plan Hospital Course (Demo Recall) IMPRESSION: 1. Preoperative evaluation prior to surgery for traumatic L2 fracture with associated hematoma.-Now post- s/p t12-L4 arthrodesis 2. No portal hypertension, but on a beta carlos at baseline. 3. History of percutaneous transluminal coronary angioplasty and stent placement, most recently 2014.-NL EF by echo and no sig valve abnl 4. 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 5. Possible dyslipidemia by medications although the patient denies. 6. Traumatic L2 fracture. 7. History of lymphedema per patient, currently resolved. 8. Ankylosing spondylitis by CT. 9. Severe osteoarthritis. Recc: -Still in ICU s/p surgery -holding plavix and ok as mutiple years s/p most recent stent placement -pain control -Continue abx prophyaxis -local wound care Consultation Date/Type/Reason Admit Date/Time Mar 09, 2019 at 19:01 Initial Consult Date 03/10/19 Type of Consult Cardiology Reason for Consultation preop, h/o stent Requesting Provider: MICKEY CHAMBERS MD Date/Time of Note DATE: 03/12/19 TIME: 12:21 Exam/Review of Systems Vital Signs Vitals Vital Signs Date Temp Pulse Resp B/P (MAP) Pulse Ox O2 O2 Flow FiO2 Time Delivery Rate 03/12/19 108 15 117/70 97 Nasal 2.0 11:00 (86) Cannula 03/12/19 97.8 08:00 Intake and Output 03/11/19 03/11/19 03/12/19 1515:00 23:00 07:00 IntakeIntake Total 2000 ml 100 ml 1450 ml OutputOutput Total 770 ml 750 ml 515 ml BalanceBalance 1230 ml -650 ml 935 ml Exam Exam Review of Systems: CONSTITUTIONAL: No fevers, chills. PULMONARY: No sob CARDIOVASCULAR: No chest pain/palpitations GASTROINTESTINAL: No nausea/vomiting. GENITOURINARY: No hematuria/dysuria. MUSCULOSKELETAL: No myagias/arthalgias. PSYCHIATRIC: The patient denies depression. NEUROLOGIC: No weakness Constitutional: alert Psych: no complaints Head: normocephalic ENMT: mucosa pink and moist Neck: supple, jvd (9 cm water) Respiratory: diminished breath sounds Cardiovascular: regular rate and rhythm Gastrointestinal: soft, non-tender Musculoskeletal: muscle tone (normal) Extremities: edema (none) Neurological: other (No focal deficits) Labs Result Diagram: 03/12/19 1008 03/12/19 1008 Results 24hrs Laboratory Tests Test 03/12/19 05:06 03/12/19 10:08 Lab Scanned Report BLOOD TRANSFUSION White Blood Count 12.2 H Red Blood Count 2.63 #L Hemoglobin 7.8 #L Hematocrit 24.1 #L Mean Corpuscular Volume 91.6 Mean Corpuscular Hemoglobin 29.7 Mean Corpuscular Hemoglobin Concent 32.4 Red Cell Distribution Width 14.5 Platelet Count 251 Mean Platelet Volume 9.2 Immature Granulocytes % 0.400 Neutrophils % 78.7 H Lymphocytes % 8.5 L Monocytes % 12.0 H Eosinophils % 0.2 Basophils % 0.2 Nucleated Red Blood Cells % 0.0 Immature Granulocytes # 0.050 H Neutrophils # 9.6 H Lymphocytes # 1.0 Monocytes # 1.5 H Eosinophils # 0.0 Basophils # 0.0 Nucleated Red Blood Cells # 0.0 Sodium Level 135 Potassium Level 4.3 Chloride Level 104 Carbon Dioxide Level 28 Anion Gap 3 L Blood Urea Nitrogen 16 Creatinine 0.76 Est Glomerular Filtrat Rate mL/min Glucose Level 131 Calcium Level 7.7 L Phosphorus Level 2.4 L Magnesium Level 1.9 Medications Medications Current Medications Sodium Chloride 1,000 ml @ 100 mls/hr Q10H IV Last administered on 03/12/19at 02:50; Admin Dose 100 MLS/HR; Start 03/10/19 at 00:00 IV Flush (NS 3 ml) 3 ml PER PROTOCOL IV ; Start 03/09/19 at 20:30 Ondansetron HCl (Zofran Inj) 4 mg Q6H PRN IV NAUSEA/VOMITING Last administered on 03/10/19at 17:16; Admin Dose 4 MG; Start 03/09/19 at 20:30 Acetaminophen (Tylenol Tab) 650 mg Q6H PRN PO .PAIN 1-3 OR TEMP; Start 03/09/19 at 20:30 Acetaminophen/ Hydrocodone Bitart ([place] (5/325)) 1 tab Q6H PRN PO .MOD PAIN 4- 6 Last administered on 03/12/19at 05:03; Admin Dose 1 TAB; Start 03/09/19 at 20:30 Morphine Sulfate (morphine) 2 mg Q4H PRN IV .SEVERE PAIN 7-10 Last administered on 03/11/19at 19:02; Admin Dose 2 MG; Start 03/09/19 at 20:30 Docusate Sodium (Colace) 100 mg Q12H PRN PO .CONSTIPATION; Start 03/09/19 at 20:30 Bisacodyl (Dulcolax) 5 mg DAILY PRN PO .CONSTIPATION; Start 03/09/19 at 20:30 Al Hydrox/Mg Hydrox/Simethicone (Mag-Al Plus) 30 ml Q6H PRN PO GASTROINTESTINAL UPSET Last administered on 03/10/19at 04:20; Admin Dose 30 ML; Start 03/10/19 at 03:00 Fentanyl (Sublimaze) 50 mcg Q2H PRN IV SEVERE PAIN LEVEL 7-10; Start 03/11/19 at 13:30 Cefazolin Sodium 50 ml @ 100 mls/hr Q8 IVPB Last administered on 03/12/19at 06:45; Admin Dose 100 MLS/HR; Start 03/11/19 at 14:00 MICKEY SOLITARIO Mar 12, 2019 12:23
--- NOTE | 2019-03-12 13:10 | PN ---
Date/Time of Note Date/Time of Note DATE: 03/12/19 TIME: 13:07 Assessment/Plan VTE Prophylaxis Risk score (from Ns)>0 risk: 10 SCD applied (from Ns): Yes Pharmacological prophylaxis: NA/contraindicated Pharm contraindication: surgical contra Lines/Catheters IV Catheter Type (from Nrsg): A Line Urinary Cath still in place: Yes Reason Cath still needed: other (indicate) (immobile) Assessment/Plan Assessment/Plan 84 yo man with history of [place] 5 years ago with PCI on plavix who presents with traumatic fracture of L2 vertebral body. # acute fracture of L2 vertebral body: - With adjacent paraspinal hematoma. - Pain management. - Dr. Quesada following. - s/p operative fixation 03/11 # Ankylosing spondylitis: seen on CT scan, confirmed on MRI. # CAD: - hx of NE 5 years ago, on plavix but had skin rash to aspirin so he isn't taking it. - Currently holding plavix in the setting of hematoma plus pre-operatively. Restart on POD #5. - Dr Peña following # dvt and gi prop: scds, no gi proph indicated Result Diagram: 03/12/19 1008 03/12/19 1008 Subjective 24 Hr Interval Summary Free Text/Dictation No acute overnight events. Patient awake, pain adequately controlled. Poor appetite. Exam/Review of Systems Exam Vitals Vital Signs Date Temp Pulse Resp B/P (MAP) Pulse Ox O2 O2 Flow FiO2 Time Delivery Rate 03/12/19 94 12:00 03/12/19 15 117/70 97 Nasal 2.0 11:00 (86) Cannula 03/12/19 97.8 08:00 Intake and Output 03/11/19 03/11/19 03/12/19 1515:00 23:00 07:00 IntakeIntake Total 2000 ml 100 ml 1450 ml OutputOutput Total 770 ml 750 ml 515 ml BalanceBalance 1230 ml -650 ml 935 ml Exam General: Obese man currently lying in bed, no acute distress HEENT: Atraumatic, normocephalic. The pupils are equal, round and reactive. Extraocular motor are intact Neck: Supple with full range of motion. No rigidity or meningismus Chest: Nontender Lungs: Clear to auscultation bilaterally no crackles rales or wheezing Heart: Regular rate and rhythm, 3/6 systolic ejection murmur loudest at LLSB. Abdomen: Soft , nontender, nondistended , bowel sounds are present. No guarding no rebound tenderness , No masses or organomegaly. No costovertebral temporal angle mass Extremities: Normal to inspection, no edema no cyanosis Skin: Extensive bruising of the back Results Results 24hrs Laboratory Tests Test 03/12/19 05:06 03/12/19 10:08 Lab Scanned Report BLOOD TRANSFUSION White Blood Count 12.2 H Red Blood Count 2.63 #L Hemoglobin 7.8 #L Hematocrit 24.1 #L Mean Corpuscular Volume 91.6 Mean Corpuscular Hemoglobin 29.7 Mean Corpuscular Hemoglobin Concent 32.4 Red Cell Distribution Width 14.5 Platelet Count 251 Mean Platelet Volume 9.2 Immature Granulocytes % 0.400 Neutrophils % 78.7 H Lymphocytes % 8.5 L Monocytes % 12.0 H Eosinophils % 0.2 Basophils % 0.2 Nucleated Red Blood Cells % 0.0 Immature Granulocytes # 0.050 H Neutrophils # 9.6 H Lymphocytes # 1.0 Monocytes # 1.5 H Eosinophils # 0.0 Basophils # 0.0 Nucleated Red Blood Cells # 0.0 Sodium Level 135 Potassium Level 4.3 Chloride Level 104 Carbon Dioxide Level 28 Anion Gap 3 L Blood Urea Nitrogen 16 Creatinine 0.76 Est Glomerular Filtrat Rate mL/min Glucose Level 131 Calcium Level 7.7 L Phosphorus Level 2.4 L Magnesium Level 1.9 Medications Medication Current Medications Sodium Chloride 1,000 ml @ 100 mls/hr Q10H IV Last administered on 03/12/19at 02:50; Admin Dose 100 MLS/HR; Start 03/10/19 at 00:00 IV Flush (NS 3 ml) 3 ml PER PROTOCOL IV ; Start 03/09/19 at 20:30 Ondansetron HCl (Zofran Inj) 4 mg Q6H PRN IV NAUSEA/VOMITING Last administered on 03/10/19at 17:16; Admin Dose 4 MG; Start 03/09/19 at 20:30 Acetaminophen (Tylenol Tab) 650 mg Q6H PRN PO .PAIN 1-3 OR TEMP; Start 03/09/19 at 20:30 Acetaminophen/ Hydrocodone Bitart ([place] (5/325)) 1 tab Q6H PRN PO .MOD PAIN 4- 6 Last administered on 03/12/19 05:03; Admin Dose 1 TAB; Start 03/09/19 at 20:30 Morphine Sulfate (morphine) 2 mg Q4H PRN IV .SEVERE PAIN 7-10 Last administered on 03/11/19at 19:02; Admin Dose 2 MG; Start 03/09/19 at 20:30 Docusate Sodium (Colace) 100 mg Q12H PRN PO .CONSTIPATION; Start 03/09/19 at 20:30 Bisacodyl (Dulcolax) 5 mg DAILY PRN PO .CONSTIPATION; Start 03/09/19 at 20:30 Al Hydrox/Mg Hydrox/Simethicone (Mag-Al Plus) 30 ml Q6H PRN PO GASTROINTESTINAL UPSET Last administered on 03/10/19 04:20; Admin Dose 30 ML; Start 03/10/19 at 03:00 Fentanyl (Sublimaze) 50 mcg Q2H PRN IV SEVERE PAIN LEVEL 7-10; Start 03/11/19 at 13:30 Cefazolin Sodium 50 ml @ 100 mls/hr Q8 IVPB Last administered on 03/12/19at 06:45; Admin Dose 100 MLS/HR; Start 03/11/19 at 14:00 MICKEY CHAMBERS MD Mar 12, 2019 13:10
--- NOTE | 2019-03-12 13:10 | CONS ---
Assessment/Plan Assessment/Plan Assessment/Plan (Daily) POD1 T12-L4 fusion for L2 chance fracture - Transfer 4W - PT/OT/OOB - Will plan to d/c drains on Friday - Keep abx for drain ppx - Bowel regimen Consultation Date/Type/Reason Admit Date/Time Mar 09, 2019 at 19:01 Initial Consult Date 03/10/19 Type of Consult Neurosurgery Requesting Provider: MICKEY CHAMBERS MD Date/Time of Note DATE: 03/12/19 TIME: 13:07 24 HR Interval Summary Free Text/Dictation POD1 T12-L4 fusion for L2 chance fracture Doing well, no weakness Exam/Review of Systems Exam Vitals Vital Signs Date Temp Pulse Resp B/P (MAP) Pulse Ox O2 O2 Flow FiO2 Time Delivery Rate 03/12/19 94 12:00 03/12/19 15 117/70 97 Nasal 2.0 11:00 (86) Cannula 03/12/19 97.8 08:00 Intake and Output 03/11/19 03/11/19 03/12/19 1515:00 23:00 07:00 IntakeIntake Total 2000 ml 100 ml 1450 ml OutputOutput Total 770 ml 750 ml 515 ml BalanceBalance 1230 ml -650 ml 935 ml Exam 01/31 HV1 - 200cc HV2 - 300cc Results Result Diagram: 03/12/19 1008 03/12/19 1008 Results 24hrs Laboratory Tests Test 03/12/19 05:06 03/12/19 10:08 Lab Scanned Report BLOOD TRANSFUSION White Blood Count 12.2 H Red Blood Count 2.63 #L Hemoglobin 7.8 #L Hematocrit 24.1 #L Mean Corpuscular Volume 91.6 Mean Corpuscular Hemoglobin 29.7 Mean Corpuscular Hemoglobin Concent 32.4 Red Cell Distribution Width 14.5 Platelet Count 251 Mean Platelet Volume 9.2 Immature Granulocytes % 0.400 Neutrophils % 78.7 H Lymphocytes % 8.5 L Monocytes % 12.0 H Eosinophils % 0.2 Basophils % 0.2 Nucleated Red Blood Cells % 0.0 Immature Granulocytes # 0.050 H Neutrophils # 9.6 H Lymphocytes # 1.0 Monocytes # 1.5 H Eosinophils # 0.0 Basophils # 0.0 Nucleated Red Blood Cells # 0.0 Sodium Level 135 Potassium Level 4.3 Chloride Level 104 Carbon Dioxide Level 28 Anion Gap 3 L Blood Urea Nitrogen 16 Creatinine 0.76 Est Glomerular Filtrat Rate mL/min Glucose Level 131 Calcium Level 7.7 L Phosphorus Level 2.4 L Magnesium Level 1.[address] demonstrates good screw placement and alignment from T12-L4 Medications Medication Current Medications Sodium Chloride 1,000 ml @ 100 mls/hr Q10H IV Last administered on 03/12/19 02:50; Admin Dose 100 MLS/HR; Start 03/10/19 at 00:00 IV Flush (NS 3 ml) 3 ml PER PROTOCOL IV ; Start 03/09/19 at 20:30 Ondansetron HCl (Zofran Inj) 4 mg Q6H PRN IV NAUSEA/VOMITING Last administered on 03/10/19 17:16; Admin Dose 4 MG; Start 03/09/19 at 20:30 Acetaminophen (Tylenol Tab) 650 mg Q6H PRN PO .PAIN 1-3 OR TEMP; Start 03/09/19 at 20:30 Acetaminophen/ Hydrocodone Bitart ([place] (5/325)) 1 tab Q6H PRN PO .MOD PAIN 4- 6 Last administered on 03/12/19 05:03; Admin Dose 1 TAB; Start 03/09/19 at 20:3 0 Morphine Sulfate (morphine) 2 mg Q4H PRN IV .SEVERE PAIN 7-10 Last administered on 03/11/19at 19:02; Admin Dose 2 MG; Start 03/09/19 at 20:30 Docusate Sodium (Colace) 100 mg Q12H PRN PO .CONSTIPATION; Start 03/09/19 at 20:30 Bisacodyl (Dulcolax) 5 mg DAILY PRN PO .CONSTIPATION; Start 03/09/19 at 20:30 Al Hydrox/Mg Hydrox/Simethicone (Mag-Al Plus) 30 ml Q6H PRN PO GASTROINTESTINAL UPSET Last administered on 03/10/19 04:20; Admin Dose 30 ML; Start 03/10/19 at 03:00 Fentanyl (Sublimaze) 50 mcg Q2H PRN IV SEVERE PAIN LEVEL 7-10; Start 03/11/19 at 13:30 Cefazolin Sodium 50 ml @ 100 mls/hr Q8 IVPB Last administered on 03/12/19at 06:45; Admin Dose 100 MLS/HR; Start 03/11/19 at 14:00 REYNA STEELE MD Mar 12, 2019 13:10
[2019-03-12] MEDS ORDERED: SOD CHLORIDE 0.9% 250 ML IV* ONE (13:19)
[2019-03-12] MEDS: CYCLOBENZAPRINE 10 MG TAB PO SCH ×2 (14:07→21:26)
[2019-03-13 00:08] VITALS: BP 148/71; PULSE 109; RESP 17
[2019-03-13] MEDS: CEFAZOLIN 1 GM/50 ML (PMX) 50 ML IVPB SCH ×3 (05:58→21:34)
[2019-03-13 07:47] VITALS: BP 145/69; PULSE 111; RESP 18
[2019-03-13] MEDS ORDERED: CYCLOBENZAPRINE 10 MG TAB PO SCH (09:00)
[2019-03-13] MEDS: ONDANSETRON 4 MG INJ IV PRN (09:21)
--- NOTE | 2019-03-13 09:46 | CONS ---
Assessment/Plan Assessment/Plan Assessment/Plan (Daily) POD2 T12-L4 fusion for L2 chance fx - d/c flexeril - continue PT/OT - d/c walters catheter - will d/c drains tomorrow - ancef while drains in place Consultation Date/Type/Reason Admit Date/Time Mar 09, 2019 at 19:01 Initial Consult Date 03/10/19 Type of Consult Neurosurgery Requesting Provider: MICKEY CHAMBERS MD Date/Time of Note DATE: 03/13/19 TIME: 09:44 24 HR Interval Summary Free Text/Dictation POD2 T12-L4 fusion for L2 chance fx Doing well, some confusion o/n - potentially d/t to flexeril Afebrile 1u prbcs yesterday for hgb 7.8 CT - optimal screw placement Exam/Review of Systems Exam Vitals Vital Signs Date Temp Pulse Resp B/P (MAP) Pulse Ox O2 O2 Flow FiO2 Time Delivery Rate 03/13/19 98.3 111 18 145/69 97 Nasal 07:47 (94) Cannula 03/12/19 2.0 20:00 Intake and Output 03/12/19 03/12/19 03/13/19 1414:59 22:59 06:59 IntakeIntake Total 1100 ml 400 ml 1030 ml OutputOutput Total 310 ml 490 ml 1570 ml BalanceBalance 790 ml -90 ml -540 ml Exam Tired/sleepy 01/31 HV1 - 30cc HV2 - 80cc Results Result Diagram: 03/12/19 1008 03/12/19 1008 Results 24hrs Laboratory Tests Test 03/12/19 10:08 03/13/19 07:17 White Blood Count 12.2 H Red Blood Count 2.63 #L Hemoglobin 7.8 #L Hematocrit 24.1 #L Mean Corpuscular Volume 91.6 Mean Corpuscular Hemoglobin 29.7 Mean Corpuscular Hemoglobin Concent 32.4 Red Cell Distribution Width 14.5 Platelet Count 251 Mean Platelet Volume 9.2 Immature Granulocytes % 0.400 Neutrophils % 78.7 H Lymphocytes % 8.5 L Monocytes % 12.0 H Eosinophils % 0.2 Basophils % 0.2 Nucleated Red Blood Cells % 0.0 Immature Granulocytes # 0.050 H Neutrophils # 9.6 H Lymphocytes # 1.0 Monocytes # 1.5 H Eosinophils # 0.0 Basophils # 0.0 Nucleated Red Blood Cells # 0.0 Sodium Level 135 Potassium Level 4.3 Chloride Level 104 Carbon Dioxide Level 28 Anion Gap 3 L Blood Urea Nitrogen 16 Creatinine 0.76 Est Glomerular Filtrat Rate mL/min Glucose Level 131 Calcium Level 7.7 L Phosphorus Level 2.4 L Magnesium Level 1.9 Lab Scanned Report BLOOD TRANSFUSION Medications Medication Current Medications IV Flush (NS 3 ml) 3 ml PER PROTOCOL IV ; Start 03/09/19 at 20:30 Ondansetron HCl (Zofran Inj) 4 mg Q6H PRN IV NAUSEA/VOMITING Last administered on 03/13/19 09:21; Admin Dose 4 MG; Start 03/09/19 at 20:30 Acetaminophen (Tylenol Tab) 650 mg Q6H PRN PO .PAIN 1-3 OR TEMP; Start 03/09/19 at 20:30 Acetaminophen/ Hydrocodone Bitart ([place] (5/325)) 1 tab Q6H PRN PO .MOD PAIN 4- 6 Last administered on 03/12/19 05:03; Admin Dose 1 TAB; Start 03/09/19 at 20:30 Morphine Sulfate (morphine) 2 mg Q4H PRN IV .SEVERE PAIN 7-10 Last administered on 03/11/19 19:02; Admin Dose 2 MG; Start 03/09/19 at 20:30 Docusate Sodium (Colace) 100 mg Q12H PRN PO .CONSTIPATION; Start 03/09/19 at 20:30 Bisacodyl (Dulcolax) 5 mg DAILY PRN PO .CONSTIPATION; Start 03/09/19 at 20:30 Al Hydrox/Mg Hydrox/Simethicone (Mag-Al Plus) 30 ml Q6H PRN PO GASTROINTESTINAL UPSET Last administered on 03/10/19 04:20; Admin Dose 30 ML; Start 03/10/19 at 03:00 Cefazolin Sodium 50 ml @ 100 mls/hr Q8 IVPB Last administered on 03/13/19 05:58; Admin Dose 100 MLS/HR; Start 03/11/19 at 14:00 Cyclobenzaprine HCl (Flexeril) 10 mg DAILY PO Last administered on 03/13/19 08:09; Admin Dose 10 MG; Start 03/13/19 at 09:00 REYNA STEELE MD Mar 13, 2019 09:46
--- NOTE | 2019-03-13 11:07 | PN ---
Date/Time of Note Date/Time of Note DATE: 03/13/19 TIME: 11:05 Assessment/Plan VTE Prophylaxis Risk score (from Ns)>0 risk: 7 SCD applied (from [facility]): Yes Pharmacological prophylaxis: NA/contraindicated Pharm contraindication: surgical contra Lines[facility] IV Urinary Cath still in place: No Assessment/Plan Assessment/Plan 84 yo man with history of [place] 5 years ago with PCI on plavix who presents with traumatic fracture of L2 vertebral body. # acute fracture of L2 vertebral body: - With adjacent paraspinal hematoma. - Pain management with IV opioids. Also started on flexeril but may have been causing hallucinations; discontinued. - Dr. Quesada following. - s/p operative fixation 03/11 # Ankylosing spondylitis: seen on CT scan, confirmed on MRI. # CAD: - hx of [place] 5 years ago, on plavix but had skin rash to aspirin so he isn't taking it. - Currently holding plavix in the setting of hematoma plus pre-operatively. Restart on POD #5. - Dr Peña following # dvt and gi prop: scds, no gi proph indicated Result Diagram: 03/13/19 1027 03/12/19 1008 Subjective 24 Hr Interval Summary Free Text/Dictation No acute overnight events. Patient having some hallucinations.... muscle relaxants discontinued overnight. Exam/Review of Systems Exam Vitals Vital Signs Date Temp Pulse Resp B/P (MAP) Pulse Ox O2 O2 Flow FiO2 Time Delivery Rate 03/13/19 98.3 111 18 145/69 97 Nasal 07:47 (94) Cannula 03/12/19 2.0 20:00 Intake and Output 03/12/19 03/12/19 03/13/19 1515:00 23:00 07:00 IntakeIntake Total 1100 ml 250 ml 1030 ml OutputOutput Total 325 ml 440 ml 1570 ml BalanceBalance 775 ml -190 ml -540 ml Exam General: Obese man currently lying in bed, sleeping comfortably. HEENT: Atraumatic, normocephalic. The pupils are equal, round and reactive. Extraocular motor are intact Neck: Supple with full range of motion. No rigidity or meningismus Chest: Nontender Lungs: Clear to auscultation bilaterally no crackles rales or wheezing Heart: Regular rate and rhythm, 3/6 systolic ejection murmur loudest at LLSB. Abdomen: Soft , nontender, nondistended , bowel sounds are present. No guarding no rebound tenderness , No masses or organomegaly. No costovertebral temporal angle mass Extremities: Normal to inspection, no edema no cyanosis Skin: Extensive bruising of the back Results Results 24hrs Laboratory Tests Test 03/13/19 07:17 03/13/19 10:27 Lab Scanned Report BLOOD TRANSFUSION White Blood Count 10.3 Red Blood Count 3.19 #L Hemoglobin 9.4 #L Hematocrit 28.4 L Mean Corpuscular Volume 89.0 Mean Corpuscular Hemoglobin 29.5 Mean Corpuscular Hemoglobin Concent 33.1 Red Cell Distribution Width 14.8 H Platelet Count 267 Mean Platelet Volume 9.0 Immature Granulocytes % 0.600 H Neutrophils % 77.5 H Lymphocytes % 7.5 L Monocytes % 12.4 H Eosinophils % 1.7 Basophils % 0.3 Nucleated Red Blood Cells % 0.0 Immature Granulocytes # 0.060 H Neutrophils # 8.0 H Lymphocytes # 0.8 Monocytes # 1.3 H Eosinophils # 0.2 Basophils # 0.0 Nucleated Red Blood Cells # 0.0 Medications Medication Current Medications IV Flush (NS 3 ml) 3 ml PER PROTOCOL IV ; Start 03/09/19 at 20:30 Ondansetron HCl (Zofran Inj) 4 mg Q6H PRN IV NAUSEA/VOMITING Last administered on 03/13/19at 09:21; Admin Dose 4 MG; Start 03/09/19 at 20:30 Acetaminophen (Tylenol Tab) 650 mg Q6H PRN PO .PAIN 1-3 OR TEMP; Start 03/09/19 at 20:30 Acetaminophen/ Hydrocodone Bitart ([place] (5/325)) 1 tab Q6H PRN PO .MOD PAIN 4- 6 Last administered on 03/12/19at 05:03; Admin Dose 1 TAB; Start 03/09/19 at 20:30 Morphine Sulfate (morphine) 2 mg Q4H PRN IV .SEVERE PAIN 7-10 Last administered on 03/11/19at 19:02; Admin Dose 2 MG; Start 03/09/19 at 20:30 Docusate Sodium (Colace) 100 mg Q12H PRN PO .CONSTIPATION; Start 03/09/19 at 20:30 Bisacodyl (Dulcolax) 5 mg DAILY PRN PO .CONSTIPATION; Start 03/09/19 at 20:30 Al Hydrox/Mg Hydrox/Simethicone (Mag-Al Plus) 30 ml Q6H PRN PO GASTROINTESTINAL UPSET Last administered on 03/10/19at 04:20; Admin Dose 30 ML; Start 03/10/19 at 03:00 Cefazolin Sodium 50 ml @ 100 mls/hr Q8 IVPB Last administered on 03/13/19at 05:58; Admin Dose 100 MLS/HR; Start 03/11/19 at 14:00 Potassium Phosphate 30 mm/ Sodium Chloride 260 ml @ 65 mls/hr ONCE ONCE IVPB ; Start 03/13/19 at 11:30; Stop 03/13/19 at 15:29; Status UNV MICKEY CHAMBERS MD Mar 13, 2019 11:07
[2019-03-13] MEDS: HYDROCODONE/APAP (5/325) TAB PO PRN (11:22)
[2019-03-13] MEDS ORDERED: POTASSIUM PHOSPHATE 30 MM in SOD CHLORIDE 0.9% 250 ML IVPB ONE (12:00)
--- NOTE | 2019-03-13 15:16 | CONS ---
Assessment/Plan Assessment/Plan Assessment/Plan (Daily) S/P s/p T12-L4 arthrodesis CAD s/p NSTEMI, s/p percutaneous transluminal coronary angioplasty and stent placement Dyslipidemia Ankylosing spondylitis by CT. Severe osteoarthritis. Continue antibiotics Continue Wound care Consultation Date/Type/Reason Admit Date/Time Mar 09, 2019 at 19:01 Type of Consult Cardiology Date/Time of Note DATE: 03/13/19 TIME: 15:14 Past Medical History Home Meds Reported Medications Tamsulosin Hcl* (Flomax*) 0.4 Mg Cap.er.24h, 0.4 MG PO NEEDED, CAP 03/09/19 Clopidogrel Bisulfate* (Clopidogrel Bisulfate*) 75 Mg Tablet, 75 MG PO DAILY, #30 TAB 03/09/19 Metoprolol Succinate* (Toprol XL*) 50 Mg Tab.er.24h, 50 MG PO DAILY, #30 TAB 03/09/19 Discontinued Reported Medications [place]-3 Fatty Acids/Fish Oil* (Fish Oil *) 1,000 Mg Capsule, 1000 MG PO BID, CAP 01/20/15 Carvedilol* (Coreg*) 3.125 Mg Tablet, 3.125 MG PO BID, TAB 01/20/15 Atorvastatin* (Atorvastatin*) 40 Mg Tablet, 40 MG PO HS, TAB 01/20/15 Discontinued Scripts Acetaminophen-Codeine* (Acetaminophen-Cod #3*) 300-30 Mg Tab, 1 TAB PO Q4H PRN for PAIN, #15 TAB Prov:TAWNYA DONATO DIRECTOR OF INFECTION PREVENTION 11/25/15 Ticagrelor* (Brilinta*) 90 Mg Tablet, 90 MG PO BID for 30 Days Prov:KACY MURO DIRECTOR OF INFECTION PREVENTION 10/13/14 Aspirin* (Aspirin* EC) 81 Mg Tabec, 81 MG PO DAILY for 30 Days Prov:KACY MURO DIRECTOR OF INFECTION PREVENTION 10/13/14 Medications Current Medications IV Flush (NS 3 ml) 3 ml PER PROTOCOL IV ; Start 03/09/19 at 20:30 Ondansetron HCl (Zofran Inj) 4 mg Q6H PRN IV NAUSEA/VOMITING Last administered on 03/13/19at 09:21; Admin Dose 4 MG; Start 03/09/19 at 20:30 Acetaminophen (Tylenol Tab) 650 mg Q6H PRN PO .PAIN 1-3 OR TEMP; Start 03/09/19 at 20:30 Acetaminophen/ Hydrocodone Bitart ([place] (5/325)) 1 tab Q6H PRN PO .MOD PAIN 4- 6 Last administered on 03/13/19at 11:22; Admin Dose 1 TAB; Start 03/09/19 at 20:30 Morphine Sulfate (morphine) 2 mg Q4H PRN IV .SEVERE PAIN 7-10 Last administered on 03/11/19at 19:02; Admin Dose 2 MG; Start 03/09/19 at 20:30 Docusate Sodium (Colace) 100 mg Q12H PRN PO .CONSTIPATION; Start 03/09/19 at 20:30 Bisacodyl (Dulcolax) 5 mg DAILY PRN PO .CONSTIPATION; Start 03/09/19 at 20:30 Al Hydrox/Mg Hydrox/Simethicone (Mag-Al Plus) 30 ml Q6H PRN PO GASTROINTESTINAL UPSET Last administered on 03/10/19at 04:20; Admin Dose 30 ML; Start 03/10/19 at 03:00 Cefazolin Sodium 50 ml @ 100 mls/hr Q8 IVPB Last administered on 03/13/19at 14:27; Admin Dose 100 MLS/HR; Start 03/11/19 at 14:00 Potassium Phosphate 30 mm/ Sodium Chloride 260 ml @ 65 mls/hr ONCE ONCE IVPB Last administered on 03/13/19 14:27; Admin Dose 65 MLS/HR; Start 03/13/19 at 12:00; Stop 03/13/19 at 15:59 Allergies: Coded Allergies: aspirin (Verified Adverse Reaction, Mild, Rash , 03/11/19) Social History Alcohol Use: none Smoking Status: Never smoker Drug Use: none Exam/Review of Systems Vital Signs Vitals Vital Signs Date Temp Pulse Resp B/P (MAP) Pulse Ox O2 O2 Flow FiO2 Time Delivery Rate 03/13/19 98.3 111 18 145/69 97 Nasal 07:47 (94) Cannula 03/12/19 2.0 20:00 Intake and Output 03/12/19 03/12/19 03/13/19 1515:00 23:00 07:00 IntakeIntake Total 1100 ml 250 ml 1030 ml OutputOutput Total 325 ml 440 ml 1570 ml BalanceBalance 775 ml -190 ml -540 ml Exam Constitutional: alert Head: normocephalic, atraumatic Respiratory: clear to auscultation Cardiovascular: regular rate and rhythm (no m/r/g) Gastrointestinal: soft Extremities: normal pulses Labs Result Diagram: 03/13/19 1027 03/12/19 1008 Results 24hrs Laboratory Tests Test 03/13/19 07:17 03/13/19 10:27 Lab Scanned Report BLOOD TRANSFUSION White Blood Count 10.3 Red Blood Count 3.19 #L Hemoglobin 9.4 #L Hematocrit 28.4 L Mean Corpuscular Volume 89.0 Mean Corpuscular Hemoglobin 29.5 Mean Corpuscular Hemoglobin Concent 33.1 Red Cell Distribution Width 14.8 H Platelet Count 267 Mean Platelet Volume 9.0 Immature Granulocytes % 0.600 H Neutrophils % 77.5 H Lymphocytes % 7.5 L Monocytes % 12.4 H Eosinophils % 1.7 Basophils % 0.3 Nucleated Red Blood Cells % 0.0 Immature Granulocytes # 0.060 H Neutrophils # 8.0 H Lymphocytes # 0.8 Monocytes # 1.3 H Eosinophils # 0.2 Basophils # 0.0 Nucleated Red Blood Cells # 0.0 Medications Medications Current Medications IV Flush (NS 3 ml) 3 ml PER PROTOCOL IV ; Start 03/09/19 at 20:30 Ondansetron HCl (Zofran Inj) 4 mg Q6H PRN IV NAUSEA/VOMITING Last administered on 03/13/19at 09:21; Admin Dose 4 MG; Start 03/09/19 at 20:30 Acetaminophen (Tylenol Tab) 650 mg Q6H PRN PO .PAIN 1-3 OR TEMP; Start 03/09/19 at 20:30 Acetaminophen/ Hydrocodone Bitart ([place] (5/325)) 1 tab Q6H PRN PO .MOD PAIN 4- 6 Last administered on 03/13/19at 11:22; Admin Dose 1 TAB; Start 03/09/19 at 20:30 Morphine Sulfate (morphine) 2 mg Q4H PRN IV .SEVERE PAIN 7-10 Last administered on 03/11/19at 19:02; Admin Dose 2 MG; Start 03/09/19 at 20:30 Docusate Sodium (Colace) 100 mg Q12H PRN PO .CONSTIPATION; Start 03/09/19 at 20:30 Bisacodyl (Dulcolax) 5 mg DAILY PRN PO .CONSTIPATION; Start 03/09/19 at 20:30 Al Hydrox/Mg Hydrox/Simethicone (Mag-Al Plus) 30 ml Q6H PRN PO GASTROINTESTINAL UPSET Last administered on 03/10/19at 04:20; Admin Dose 30 ML; Start 03/10/19 at 03:00 Cefazolin Sodium 50 ml @ 100 mls/hr Q8 IVPB Last administered on 03/13/19at 14:27; Admin Dose 100 MLS/HR; Start 03/11/19 at 14:00 Potassium Phosphate 30 mm/ Sodium Chloride 260 ml @ 65 mls/hr ONCE ONCE IVPB Last administered on 03/13/19at 14:27; Admin Dose 65 MLS/HR; Start 03/13/19 at 12:00; Stop 03/13/19 at 15:59 QUIRINO GONZALEZ M.D. Mar 13, 2019 15:16
[2019-03-13 15:43] VITALS: BP 132/71; PULSE 98; RESP 18
[2019-03-13 20:33] VITALS: BP 131/60; PULSE 107; RESP 18
[2019-03-14] MEDS: HYDROCODONE/APAP (5/325) TAB PO PRN (00:37)
[2019-03-14 03:00] VITALS: BP 152/70; PULSE 104; RESP 18
[2019-03-14] MEDS: CEFAZOLIN 1 GM/50 ML (PMX) 50 ML IVPB SCH (06:00)
[2019-03-14] MEDS: BISACODYL (EC) 5 MG TAB PO PRN (06:06)
[2019-03-14 07:31] VITALS: BP 168/79; PULSE 100; RESP 15
--- NOTE | 2019-03-14 10:30 | PN ---
Date/Time of Note Date/Time of Note DATE: 03/14/19 TIME: 10:27 Assessment/Plan VTE Prophylaxis Risk score (from Ns)>0 risk: 6 SCD applied (from Ns): Yes Pharmacological prophylaxis: NA/contraindicated Pharm contraindication: low risk/ambulating Lines/Catheters IV Catheter Type (from Nrsg): Saline Lock Urinary Cath still in place: No Assessment/Plan Assessment/Plan 84 yo man with history of [place] 5 years ago with PCI on plavix who presents with tr aumatic fracture of L2 vertebral body. # acute fracture of L2 vertebral body: - With adjacent paraspinal hematoma. - Pain management with IV opioids. Also started on flexeril but may have been causing hallucinations; discontinued. - Dr. Quesada following. - s/p operative fixation 03/11 # Ankylosing spondylitis: seen on CT scan, confirmed on MRI. # CAD: - hx of [place] 5 years ago, on plavix but had skin rash to aspirin so he isn't taking it. - Currently holding plavix in the setting of hematoma plus pre-operatively. Restart on POD #5. - Dr Peña following # dvt and gi prop: scds, no gi proph indicated Result Diagram: 03/14/19 0828 03/14/19 0828 Subjective 24 Hr Interval Summary Free Text/Dictation No acute overnight events. Nausea resolving. Very poor appetite still. No bowel movement for 4 days. Ambulating with PT yesterday. Exam/Review of Systems Exam Vitals Vital Signs Date Temp Pulse Resp B/P (MAP) Pulse Ox O2 O2 Flow FiO2 Time Delivery Rate 03/14/19 Nasal 3.0 07:52 Cannula 03/14/19 98.5 100 15 168/79 100 07:31 (108) Intake and Output 03/13/19 03/13/19 03/14/19 1515:00 23:00 07:00 IntakeIntake Total 590 ml 430 ml 240 ml OutputOutput Total 740 ml 955 ml BalanceBalance 590 ml -310 ml -715 ml Exam General: Obese man currently lying in bed, awake and responsive. HEENT: Atraumatic, normocephalic. The pupils are equal, round and reactive. Extraocular motor are intact Neck: Supple with full range of motion. No rigidity or meningismus Chest: Nontender Lungs: Clear to auscultation bilaterally no crackles rales or wheezing Heart: Regular rate and rhythm, 3/6 systolic ejection murmur loudest at LLSB. Abdomen: Soft , nontender, nondistended , bowel sounds are present. No guarding no rebound tenderness , No masses or organomegaly. No costovertebral temporal angle mass Extremities: Normal to inspection, no edema no cyanosis Results Results 24hrs Laboratory Tests Test 03/14/19 08:28 White Blood Count 10.0 Red Blood Count 3.41 L Hemoglobin 10.1 L Hematocrit 31.2 L Mean Corpuscular Volume 91.5 Mean Corpuscular Hemoglobin 29.6 Mean Corpuscular Hemoglobin Concent 32.4 Red Cell Distribution Width 14.6 H Platelet Count 302 Mean Platelet Volume 9.1 Immature Granulocytes % 0.600 H Neutrophils % 71.3 Lymphocytes % 9.5 L Monocytes % 14.8 H Eosinophils % 3.3 Basophils % 0.5 Nucleated Red Blood Cells % 0.0 Immature Granulocytes # 0.060 H Neutrophils # 7.1 Lymphocytes # 1.0 Monocytes # 1.5 H Eosinophils # 0.3 Basophils # 0.1 Nucleated Red Blood Cells # 0.0 Sodium Level 134 L Potassium Level 4.5 Chloride Level 100 Carbon Dioxide Level 28 Anion Gap 6 Blood Urea Nitrogen 13 Creatinine 0.76 Est Glomerular Filtrat Rate mL/min Glucose Level 115 Calcium Level 8.0 L Phosphorus Level 3.2 Magnesium Level 2.1 Total Bilirubin 0.9 Direct Bilirubin 0.00 Indirect Bilirubin 0.9 Aspartate Amino Transf (AST/SGOT) 22 Alanine Aminotransferase (ALT/SGPT) 16 Alkaline Phosphatase 51 Total Protein 6.0 L Albumin 3.0 L Globulin 3.00 Albumin/Globulin Ratio 1.00 Medications Medication Current Medications IV Flush (NS 3 ml) 3 ml PER PROTOCOL IV ; Start 03/09/19 at 20:30 Ondansetron HCl (Zofran Inj) 4 mg Q6H PRN IV NAUSEA/VOMITING Last administered on 03/13/19at 09:21; Admin Dose 4 MG; Start 03/09/19 at 20:30 Acetaminophen (Tylenol Tab) 650 mg Q6H PRN PO .PAIN 1-3 OR TEMP; Start 03/09/19 at 20:30 Acetaminophen/ Hydrocodone Bitart ([place] (5/325)) 1 tab Q6H PRN PO .MOD PAIN 4- 6 Last administered on 03/14/19 00:37; Admin Dose 1 TAB; Start 03/09/19 at 20:30 Morphine Sulfate (morphine) 2 mg Q4H PRN IV .SEVERE PAIN 7-10 Last administered on 03/11/19 19:02; Admin Dose 2 MG; Start 03/09/19 at 20:30 Docusate Sodium (Colace) 100 mg Q12H PRN PO .CONSTIPATION; Start 03/09/19 at 20:30 Bisacodyl (Dulcolax) 5 mg DAILY PRN PO .CONSTIPATION Last administered on 03/14/19 06:06; Admin Dose 5 MG; Start 03/09/19 at 20:30 Al Hydrox/Mg Hydrox/Simethicone (Mag-Al Plus) 30 ml Q6H PRN PO GASTROINTESTINAL UPSET Last administered on 03/10/19 04:20; Admin Dose 30 ML; Start 03/10/19 at 03:00 Cefazolin Sodium 50 ml @ 100 mls/hr Q8 IVPB Last administered on 03/14/19 06:00; Admin Dose 100 MLS/HR; Start 03/11/19 at 14:00 MICKEY CHAMBERS MD Mar 14, 2019 10:30
--- NOTE | 2019-03-14 11:11 | CONS ---
Assessment/Plan Assessment/Plan Assessment/Plan (Daily) POD3 T12-L4 fusion for L2 chance fracture - d/c drains today - d/c ancef - keep dressing for now (pt had wet bed this AM) - PT/OOB - restart plavix on POD5 (Friday) - consider rehab consult if still limited mobility by tomorrow Consultation Date/Type/Reason Admit Date/Time Mar 09, 2019 at 19:01 Initial Consult Date 03/10/19 Type of Consult Neurosurgery Requesting Provider: MICKEY CHAMBERS MD Date/Time of Note DATE: 03/14/19 TIME: 11:06 24 HR Interval Summary Free Text/Dictation POD3 T12-L4 fusion OOB with PT yesterday Exam/Review of Systems Exam Vitals Vital Signs Date Temp Pulse Resp B/P (MAP) Pulse Ox O2 O2 Flow FiO2 Time Delivery Rate 03/14/19 Nasal 3.0 07:52 Cannula 03/14/19 98.5 100 15 168/79 100 07:31 (108) Intake and Output 03/13/19 03/13/19 03/14/19 1515:00 23:00 07:00 IntakeIntake Total 590 ml 430 ml 240 ml OutputOutput Total 740 ml 955 ml BalanceBalance 590 ml -310 ml -715 ml Exam Afebrile / dressing dry HV1 - 45 HV2 - 50 Results Result Diagram: 03/14/19 0828 03/14/19 0828 Results 24hrs Laboratory Tests Test 03/14/19 08:28 White Blood Count 10.0 Red Blood Count 3.41 L Hemoglobin 10.1 L Hematocrit 31.2 L Mean Corpuscular Volume 91.5 Mean Corpuscular Hemoglobin 29.6 Mean Corpuscular Hemoglobin Concent 32.4 Red Cell Distribution Width 14.6 H Platelet Count 302 Mean Platelet Volume 9.1 Immature Granulocytes % 0.600 H Neutrophils % 71.3 Lymphocytes % 9.5 L Monocytes % 14.8 H Eosinophils % 3.3 Basophils % 0.5 Nucleated Red Blood Cells % 0.0 Immature Granulocytes # 0.060 H Neutrophils # 7.1 Lymphocytes # 1.0 Monocytes # 1.5 H Eosinophils # 0.3 Basophils # 0.1 Nucleated Red Blood Cells # 0.0 Sodium Level 134 L Potassium Level 4.5 Chloride Level 100 Carbon Dioxide Level 28 Anion Gap 6 Blood Urea Nitrogen 13 Creatinine 0.76 Est Glomerular Filtrat Rate mL/min Glucose Level 115 Calcium Level 8.0 L Phosphorus Level 3.2 Magnesium Level 2.1 Total Bilirubin 0.9 Direct Bilirubin 0.00 Indirect Bilirubin 0.9 Aspartate Amino Transf (AST/SGOT) 22 Alanine Aminotransferase (ALT/SGPT) 16 Alkaline Phosphatase 51 Total Protein 6.0 L Albumin 3.0 L Globulin 3.00 Albumin/Globulin Ratio 1.00 Medications Medication Current Medications IV Flush (NS 3 ml) 3 ml PER PROTOCOL IV ; Start 03/09/19 at 20:30 Ondansetron HCl (Zofran Inj) 4 mg Q6H PRN IV NAUSEA/VOMITING Last administered on 03/13/19 09:21; Admin Dose 4 MG; Start 03/09/19 at 20:30 Acetaminophen (Tylenol Tab) 650 mg Q6H PRN PO .PAIN 1-3 OR TEMP; Start 03/09/19 at 20:30 Acetaminophen/ Hydrocodone Bitart ([place] (5/325)) 1 tab Q6H PRN PO .MOD PAIN 4- 6 Last administered on 03/14/19 00:37; Admin Dose 1 TAB; Start 03/09/19 at 20:30 Morphine Sulfate (morphine) 2 mg Q4H PRN IV .SEVERE PAIN 7-10 Last administered on 03/11/19 19:02; Admin Dose 2 MG; Start 03/09/19 at 20:30 Docusate Sodium (Colace) 100 mg Q12H PRN PO .CONSTIPATION; Start 03/09/19 at 20:30 Bisacodyl (Dulcolax) 5 mg DAILY PRN PO .CONSTIPATION Last administered on 03/14/19 06:06; Admin Dose 5 MG; Start 03/09/19 at 20:30 Al Hydrox/Mg Hydrox/Simethicone (Mag-Al Plus) 30 ml Q6H PRN PO GASTROINTESTINAL UPSET Last administered on 03/10/19 04:20; Admin Dose 30 ML; Start 03/10/19 at 03:00 Cefazolin Sodium 50 ml @ 100 mls/hr Q8 IVPB Last administered on 03/14/19 06:00; Admin Dose 100 MLS/HR; Start 03/11/19 at 14:00 REYNA STEELE MD Mar 14, 2019 11:11
[2019-03-14] MEDS: METOPROLOL (XL) 50 MG TAB PO SCH (12:46)
--- NOTE | 2019-03-14 14:38 | CONS ---
Assessment/Plan Assessment/Plan Assessment/Plan (Daily) S/P s/p T12-L4 arthrodesis CAD s/p NSTEMI, s/p percutaneous transluminal coronary angioplasty and stent placement Dyslipidemia Ankylosing spondylitis by CT. Severe osteoarthritis. Continue Metoprolol Continue Wound care Consultation Date/Type/Reason Admit Date/Time Mar 09, 2019 at 19:01 Initial Consult Date 03/10/19 Type of Consult Cardiology Requesting Provider: MICKEY CHAMBERS MD Date/Time of Note DATE: 03/14/19 TIME: 14:37 Exam/Review of Systems Vital Signs Vitals Vital Signs Date Temp Pulse Resp B/P (MAP) Pulse Ox O2 O2 Flow FiO2 Time Delivery Rate 03/14/19 Nasal 3.0 07:52 Cannula 03/14/19 98.5 100 15 168/79 100 07:31 (108) Intake and Output 03/13/19 03/13/19 03/14/19 1515:00 23:00 07:00 IntakeIntake Total 590 ml 430 ml 240 ml OutputOutput Total 740 ml 955 ml BalanceBalance 590 ml -310 ml -715 ml Exam Exam Constitutional: alert Head: normocephalic, atraumatic Respiratory: clear to auscultation Cardiovascular: regular rate and rhythm (no m/r/g) Gastrointestinal: soft Extremities: normal pulses Labs Result Diagram: 03/14/19 0828 03/14/19 0828 Results 24hrs Laboratory Tests Test 03/14/19 08:28 White Blood Count 10.0 Red Blood Count 3.41 L Hemoglobin 10.1 L Hematocrit 31.2 L Mean Corpuscular Volume 91.5 Mean Corpuscular Hemoglobin 29.6 Mean Corpuscular Hemoglobin Concent 32.4 Red Cell Distribution Width 14.6 H Platelet Count 302 Mean Platelet Volume 9.1 Immature Granulocytes % 0.600 H Neutrophils % 71.3 Lymphocytes % 9.5 L Monocytes % 14.8 H Eosinophils % 3.3 Basophils % 0.5 Nucleated Red Blood Cells % 0.0 Immature Granulocytes # 0.060 H Neutrophils # 7.1 Lymphocytes # 1.0 Monocytes # 1.5 H Eosinophils # 0.3 Basophils # 0.1 Nucleated Red Blood Cells # 0.0 Sodium Level 134 L Potassium Level 4.5 Chloride Level 100 Carbon Dioxide Level 28 Anion Gap 6 Blood Urea Nitrogen 13 Creatinine 0.76 Est Glomerular Filtrat Rate mL/min Glucose Level 115 Calcium Level 8.0 L Phosphorus Level 3.2 Magnesium Level 2.1 Total Bilirubin 0.9 Direct Bilirubin 0.00 Indirect Bilirubin 0.9 Aspartate Amino Transf (AST/SGOT) 22 Alanine Aminotransferase (ALT/SGPT) 16 Alkaline Phosphatase 51 Total Protein 6.0 L Albumin 3.0 L Globulin 3.00 Albumin/Globulin Ratio 1.00 Medications Medications Current Medications IV Flush (NS 3 ml) 3 ml PER PROTOCOL IV ; Start 03/09/19 at 20:30 Ondansetron HCl (Zofran Inj) 4 mg Q6H PRN IV NAUSEA/VOMITING Last administered on 03/13/19 09:21; Admin Dose 4 MG; Start 03/09/19 at 20:30 Acetaminophen (Tylenol Tab) 650 mg Q6H PRN PO .PAIN 1-3 OR TEMP; Start 03/09/19 at 20:30 Acetaminophen/ Hydrocodone Bitart ([place] (5/325)) 1 tab Q6H PRN PO .MOD PAIN 4- 6 Last administered on 03/14/19at 00:37; Admin Dose 1 TAB; Start 03/09/19 at 20:30 Morphine Sulfate (morphine) 2 mg Q4H PRN IV .SEVERE PAIN 7-10 Last administered on 03/11/19 19:02; Admin Dose 2 MG; Start 03/09/19 at 20:30 Docusate Sodium (Colace) 100 mg Q12H PRN PO .CONSTIPATION; Start 03/09/19 at 20:30 Bisacodyl (Dulcolax) 5 mg DAILY PRN PO .CONSTIPATION Last administered on 03/14/19 06:06; Admin Dose 5 MG; Start 03/09/19 at 20:30 Al Hydrox/Mg Hydrox/Simethicone (Mag-Al Plus) 30 ml Q6H PRN PO GASTROINTESTINAL UPSET Last administered on 03/10/19 04:20; Admin Dose 30 ML; Start 03/10/19 at 03:00 Metoprolol Succinate (Toprol Xl) 50 mg DAILY PO Last administered on 03/14/19 12:46; Admin Dose 50 MG; Start 03/14/19 at 11:30 QUIRINO GONZALEZ M.D. Mar 14, 2019 14:38
[2019-03-14 15:19] VITALS: BP 131/60; PULSE 99; RESP 16
[2019-03-14 20:14] VITALS: BP 144/75; PULSE 100; RESP 18
[2019-03-15 01:56] VITALS: BP 140/68; PULSE 99; RESP 18
[2019-03-15] MEDS ORDERED: traZODone 50 MG TAB PO ONE (03:00)
[2019-03-15] MEDS: HYDROCODONE/APAP (5/325) TAB PO PRN (06:45)
[2019-03-15 07:40] VITALS: BP 136/63; PULSE 92; RESP 18
[2019-03-15] MEDS: morphine 2 MG INJ IV PRN (07:58)
[2019-03-15] MEDS: METOPROLOL (XL) 50 MG TAB PO SCH (10:05)
--- NOTE | 2019-03-15 15:47 | PN ---
Date/Time of Note Date/Time of Note DATE: 03/15/19 TIME: 15:42 Assessment/Plan VTE Prophylaxis Risk score (from Nsg)>0 risk: 8 SCD applied (from Nsg): Yes Pharmacological prophylaxis: other Lines/Catheters IV Catheter Type (from Nrsg): Saline Lock Urinary Cath still in place: No Assessment/Plan Hospital Course S: Pt worked with PT eariler today. States less pain overall today. O: VS- see below PE: General: Obese man currently lying in bed, awake and responsive. HEENT: Atraumatic, normocephalic. The pupils are equal, round and reactive. Extraocular motor are intact Neck: Supple with full range of motion. No rigidity or meningismus Chest: Nontender Lungs: Clear to auscultation bilaterally no crackles rales or wheezing Heart: Regular rate and rhythm, 3/6 systolic ejection murmur loudest at LLSB. Abdomen: Soft , nontender, nondistended , bowel sounds are present. No guarding no rebound tenderness , No masses or organomegaly. No costovertebral temporal angle mass Extremities: Normal to inspection, no edema no cyanosis Assessment/Plan: 84 yo man with history of [place] 5 years ago with PCI on plavix who presents with traumatic fracture of L2 vertebral body. # acute fracture of L2 vertebral body - s/p operative fixation 03/11-slowly im proving, again performed PT earlier today -Continue pain management with IV opioids. Also started on flexeril but may have been causing hallucinations; discontinued. -Neurosurgery Dr. Quesada following, per them okay to resume Plavix in 24 hours. -We will place for acute rehab eval as well # Ankylosing spondylitis: seen on CT scan, confirmed on MRI. -Monitor, pain control, continue PT # CAD: - hx of [place] 5 years ago, on plavix but had skin rash to aspirin so he isn't taking it. - Currently holding plavix in the setting of hematoma plus pre-operatively. Restart on POD #5 -so in 24 hours. -Follow-up recommendations from cardiology team Dr Peña following # dvt and gi prop: scds, no gi proph indicated Result Diagram: 03/14/1928 03/14/1928 Exam/Review of Systems Exam Vitals Vital Signs Date Temp Pulse Resp B/P (MAP) Pulse Ox O2 O2 Flow FiO2 Time Delivery Rate 6/17/19 Nasal 3.0 08:00 Cannula 03/15/19 98.0 92 18 136/63 98 07:40 (87) Intake and Output 03/14/19 03/14/19 03/15/19 1414:59 22:59 06:59 IntakeIntake Total 50 ml 540 ml OutputOutput Total 200 ml 350 ml BalanceBalance -200 ml 50 ml 190 ml Medications Medication Current Medications IV Flush (NS 3 ml) 3 ml PER PROTOCOL IV ; Start 03/09/19 at 20:30 Ondansetron HCl (Zofran Inj) 4 mg Q6H PRN IV NAUSEA/VOMITING Last administered on 03/13/19at 09:21; Admin Dose 4 MG; Start 03/09/19 at 20:30 Acetaminophen (Tylenol Tab) 650 mg Q6H PRN PO .PAIN 1-3 OR TEMP; Start 03/09/19 at 20:30 Acetaminophen/ Hydrocodone Bitart ([place] (5/325)) 1 tab Q6H PRN PO .MOD PAIN 4- 6 Last administered on 03/15/19at 06:45; Admin Dose 1 TAB; Start 03/09/19 at 20:3 0 Morphine Sulfate (morphine) 2 mg Q4H PRN IV .SEVERE PAIN 7-10 Last administered on 03/15/19at 07:58; Admin Dose 2 MG; Start 03/09/19 at 20:30 Docusate Sodium (Colace) 100 mg Q12H PRN PO .CONSTIPATION; Start 03/09/19 at 20:30 Bisacodyl (Dulcolax) 5 mg DAILY PRN PO .CONSTIPATION Last administered on 03/14/19at 06:06; Admin Dose 5 MG; Start 03/09/19 at 20:30 Al Hydrox/Mg Hydrox/Simethicone (Mag-Al Plus) 30 ml Q6H PRN PO GASTROINTESTINAL UPSET Last administered on 03/10/19at 04:20; Admin Dose 30 ML; Start 03/10/19 at 03:00 Metoprolol Succinate (Toprol Xl) 50 mg DAILY PO Last administered on 03/15/19at 10:05; Admin Dose 50 MG; Start 03/14/19 at 11:30 Trazodone HCl (Desyrel) 25 mg HS PO ; Start 03/15/19 at 21:00 TASH SALAZAR Mar 15, 2019 15:47
[2019-03-15] MEDS: BISACODYL (EC) 5 MG TAB PO PRN (17:44)
[2019-03-15] MEDS ORDERED: NITROGLYCERIN (SL) 0.4 MG TAB SL PRN (19:30)
--- NOTE | 2019-03-15 19:30 | CONS ---
Assessment/Plan Assessment/Plan Hospital Course (Demo Recall) IMPRESSION: 1. Preoperative evaluation prior to surgery for traumatic L2 fracture with associated hematoma.-Now post- s/p t12-L4 arthrodesis 2. No portal hypertension, but on a beta carlos at baseline. 3. History of percutaneous transluminal coronary angioplasty and stent placement, most recently 2014.-NL EF by echo and no sig valve abnl 4. 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 5. Possible dyslipidemia by medications although the patient denies. 6. Traumatic L2 fracture. 7. History of lymphedema per patient, currently resolved. 8. Ankylosing spondylitis by CT. 9. Severe osteoarthritis. 10. chest pain-of onset today described as chest tightness Recc: -On med surg -holding plavix a s/p surgery at this time, last stent multiple years prior -pain control -Continue abx prophyaxis -local wound care -check troponi's Q6 x 2 -serial ecg's -PRN SL NTG Consultation Date/Type/Reason Admit Date/Time Mar 09, 2019 at 19:01 Initial Consult Date 03/10/19 Type of Consult Cardiology Reason for Consultation preop/chest pain Requesting Provider: MICKEY CHAMBERS MD Date/Time of Note DATE: 03/15/19 TIME: 19:26 Exam/Review of Systems Vital Signs Vitals Vital Signs Date Temp Pulse Resp B/P (MAP) Pulse Ox O2 O2 Flow FiO2 Time Delivery Rate 03/15/19 Nasal 3.0 08:00 Cannula 03/15/19 98.0 92 18 136/63 98 07:40 (87) Intake and Output 03/14/19 03/14/19 03/15/19 1515:00 23:00 07:00 IntakeIntake Total 50 ml 540 ml OutputOutput Total 200 ml 350 ml BalanceBalance -200 ml 50 ml 190 ml Exam Exam Review of Systems: CONSTITUTIONAL: No fevers, chills. PULMONARY: No sob CARDIOVASCULAR: c/o mild chest tightness GASTROINTESTINAL: constipation GENITOURINARY: No hematuria/dysuria. MUSCULOSKELETAL: No myagias/arthalgias. PSYCHIATRIC: The patient denies depression. NEUROLOGIC: No weakness Constitutional: alert Psych: no complaints Head: normocephalic ENMT: mucosa pink and moist Neck: supple, jvd (9 cm water) Respiratory: clear to auscultation Cardiovascular: regular rate and rhythm Gastrointestinal: soft, non-tender Musculoskeletal: muscle tone (normal) Extremities: edema (none) Labs Result Diagram: 03/14/1982703/14/19827 Medications Medications Current Medications IV Flush (NS 3 ml) 3 ml PER PROTOCOL IV ; Start 03/09/19 at 20:30 Ondansetron HCl (Zofran Inj) 4 mg Q6H PRN IV NAUSEA/VOMITING Last administered on 03/13/19 09:21; Admin Dose 4 MG; Start 03/09/19 at 20:30 Acetaminophen (Tylenol Tab) 650 mg Q6H PRN PO .PAIN 1-3 OR TEMP; Start 03/09/19 at 20:30 Acetaminophen/ Hydrocodone Bitart ([place] (5/325)) 1 tab Q6H PRN PO .MOD PAIN 4- 6 Last administered on 03/15/19at 06:45; Admin Dose 1 TAB; Start 03/09/19 at 20:30 Morphine Sulfate (morphine) 2 mg Q4H PRN IV .SEVERE PAIN 7-10 Last administered on 03/15/19at 07:58; Admin Dose 2 MG; Start 03/09/19 at 20:30 Docusate Sodium (Colace) 100 mg Q12H PRN PO .CONSTIPATION; Start 03/09/19 at 20:30 Bisacodyl (Dulcolax) 5 mg DAILY PRN PO .CONSTIPATION Last administered on 03/15/19at 17:44; Admin Dose 5 MG; Start 03/09/19 at 20:30 Al Hydrox/Mg Hydrox/Simethicone (Mag-Al Plus) 30 ml Q6H PRN PO GASTROINTESTINAL UPSET Last administered on 03/10/19at 04:20; Admin Dose 30 ML; Start 03/10/19 at 03:00 Metoprolol Succinate (Toprol Xl) 50 mg DAILY PO Last administered on 03/15/19at 10:05; Admin Dose 50 MG; Start 03/14/19 at 11:30 Trazodone HCl (Desyrel) 25 mg HS PO ; Start 03/15/19 at 21:00 MICKEY SOLITARIO 17, 2019 19:30
[2019-03-15 19:58] VITALS: BP 126/61; PULSE 91; RESP 18
[2019-03-15] MEDS ORDERED: traZODone 50 MG TAB PO SCH (21:00)
[2019-03-16 01:44] VITALS: BP 129/61; PULSE 103; RESP 18
[2019-03-16] MEDS: BISACODYL (EC) 5 MG TAB PO PRN (06:50)
[2019-03-16] MEDS: HYDROCODONE/APAP (5/325) TAB PO PRN (07:09)
[2019-03-16 08:15] VITALS: BP 124/75; PULSE 93; RESP 18
[2019-03-16] MEDS: METOPROLOL (XL) 50 MG TAB PO SCH (08:33)
--- NOTE | 2019-03-16 09:54 | PDOCDIS ---
Discharge Instructions CONDITION [id number] Patient Condition: [id number] Stable HOME CARE INSTRUCTIONS: [id number] Diet Instructions: [id number] Regular ACTIVITY: [id number] Activity Restrictions: [id number] Slowly Increase Activity Rest between Activity Avoid heavy lifting Do not Drive Avoid Heavy Housework [id number] Bathing Restrictions: [id number] Sponge Bath TASH SALAZAR Mar 16, 2019 09:54
[2019-03-16] MEDS ORDERED: BISACODYL 10 MG SUPP PR ONE (10:00)
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
--- NOTE | 2019-03-16 14:47 | RADRPT ---
Vent Rate: 89 bpm RR Interval: 676 msec FL Interval: 178 msec QRS Duration: 93 msec QT Interval: 371 msec QTC Interval: 451 msec P-R-T [place]: 62 - -34 - 59 degrees Sinus rhythm...normal P axis, V-rate 50- 99 Left axis deviation...QRS axis (-30,-90) Electronically Signed By: Yovani Quach
== END 2019-03-16 15:40 | DRG 460 ==
LOC: E/R 15:53 → MS1 19:01 → CANRESERV 20:19 → REC 03-11 08:27 → ICU 03-11 17:54 → MS1 03-12 15:35
PROVIDERS: ADMIT Family Medicine; ATTEND Hospitalist
PROC: 30233R1 Transfusion of Nonautologous Platelets into Peripheral Vein, Percutaneous Approach (ICD-10-PCS; 2019-03-10)
PROC: 0SG10K1 Fusion of 2 or more Lumbar Vertebral Joints with Nonautologous Tissue Substitute, Posterior Approach, Posterior Column, Open Approach (ICD-10-PCS; 2019-03-11)
PROC: 0RGA0K1 Fusion of Thoracolumbar Vertebral Joint with Nonautologous Tissue Substitute, Posterior Approach, Posterior Column, Open Approach (ICD-10-PCS; principal; 2019-03-11 07:30)
PROC: 30233N1 Transfusion of Nonautologous Red Blood Cells into Peripheral Vein, Percutaneous Approach (ICD-10-PCS; 2019-03-12)
DX: S32.029A Unspecified fracture of second lumbar vertebra, initial encounter for closed fracture (principal); I25.10 Atherosclerotic heart disease of native coronary artery without angina pectoris; I25.2 Old myocardial infarction; Z95.5 Presence of coronary angioplasty implant and graft; M48.10 Ankylosing hyperostosis [Forestier], site unspecified; M45.5 Ankylosing spondylitis of thoracolumbar region; E78.5 Hyperlipidemia, unspecified; S20.91XA Abrasion of unspecified parts of thorax, initial encounter; M19.91 Primary osteoarthritis, unspecified site; M53.2X5 Spinal instabilities, thoracolumbar region; V89.9XXA Person injured in unspecified vehicle accident, initial encounter; Y93.E6 Activity, residential relocation; Y92.410 Unspecified street and highway as the place of occurrence of the external cause; S30.0XXA Contusion of lower back and pelvis, initial encounter; R07.89 Other chest pain
CPT/HCPCS: 36415; 36430; 70450; 71045; 71250; 72100; 72131; 72148; 72170; 74176; 80048; 80053; 80061; 83036; 83690; 83735; 84100; 84443; 85025; 85610; 85730; 86644; 86850; 86900; 86901; 86920; 86945; 87081; 90471; 90715; 93005; 93306; 96374; 96375; 97116; 97162; 97530; J0690; J1100; J1170; J1885; J2270; J2370; J2405; J3010; J7030; J7040; J7050; J7120; P9016; P9035

== ENCOUNTER 2019-03-15 18:27 | Inpatient (IN) | payer MEDICARE ==
[~2019-03-15] VITALS: Ht 177.8 cm; Wt 96.0 kg
[~2019-03-15 18:27] MED LIST changes: -ACET1TAB40 PO; -ASPI-817 PO; -ATOR40TA68 PO; -CARV3.12 PO; +CLOP75TA19 PO; +METO-319 PO; -OMEG100011 PO; +TAMS-14 PO; -TICA90TA PO
--- NOTE | 2019-03-16 10:16 | CONS ---
Consult Date/Type/Reason Admit Date/Time Initial Consult Date Date/Time of Note DATE: 03/16/19 TIME: 10:14 Subjective NO acute events - pt doing well - pain reasonably controlled - dispo planned now. ROS: No fever, no chills, no nausea, no vomiting, no diarrhea/constipation No recent weight changes No chest pain, no PND, no orthopnea No dizziness, blurred vision No thirst, no heat or cold intolerance Objective Exam General: WN/WD/NAD, AOx 3 HEENT: Unicetric/atraumatic/EOMI ( follows commands) NECK: JVD elevated, no thyromegaly Lymph: no lymphadenopathy HEART: regular with no S3, II/ systolic murmur at apex LUNGS: Coarse sounds ABD: soft, NT, ND, +BS : Intact Neuro: non focal SKIN: chronic changes EXT: trace edema Results/Medications Home Meds Reported Medications Tamsulosin Hcl* (Flomax*) 0.4 Mg Cap.er.24h, 0.4 MG PO NEEDED, CAP 03/09/19 Clopidogrel Bisulfate* (Clopidogrel Bisulfate*) 75 Mg Tablet, 75 MG PO DAILY, #30 TAB 03/09/19 Metoprolol Succinate* (Toprol XL*) 50 Mg Tab.er.24h, 50 MG PO DAILY, #30 TAB 03/09/19 Discontinued Reported Medications [place]-3 Fatty Acids/Fish Oil* (Fish Oil *) 1,000 Mg Capsule, 1000 MG PO BID, CAP 01/20/15 Carvedilol* (Coreg*) 3.125 Mg Tablet, 3.125 MG PO BID, TAB 01/20/15 Atorvastatin* (Atorvastatin*) 40 Mg Tablet, 40 MG PO HS, TAB 01/20/15 Discontinued Scripts Acetaminophen-Codeine* (Acetaminophen-Cod #3*) 300-30 Mg Tab, 1 TAB PO Q4H PRN for PAIN, #15 TAB Prov:[facility] 11/25/15 Ticagrelor* (Brilinta*) 90 Mg Tablet, 90 MG PO BID for 30 Days Prov:[facility] 10/13/14 Aspirin* (Aspirin* EC) 81 Mg Tabec, 81 MG PO DAILY for 30 Days Prov:[facility] 10/13/14 Assessment/Plan Hospital Course (Demo Recall) 1. Preoperative evaluation prior to surgery for traumatic L2 fracture with associated hematoma.-Now post- s/p t12-L4 arthrodesis - con't paib Rx - rehab to follow. 2. No portal hypertension, but on a beta carlos at baseline. BP stable now. 3. History of percutaneous transluminal coronary angioplasty and stent placement, most recently 2014.-NL EF by echo and no sig valve abnl - no CP, no intervention planned. 4. 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 5. Possible dyslipidemia by medications although the patient denies. 6. Traumatic L2 fracture. 7. History of lymphedema per patient, currently resolved. 8. Ankylosing spondylitis by CT. 9. Severe osteoarthritis. 10. chest pain-of onset today described as chest tightness - resolved. ANURADHA SEGURA MD Mar 16, 2019 10:15
--- NOTE | 2019-03-16 15:14 | CONS ---
Assessment/Plan Assessment/Plan Assessment/Plan (Daily) Doing well s/p T12-L4 PSIF. Transferring to ARU. I will come see him next week for staple removal. Can shower, but should not soak incision. No restrictions from a mobility standpoint. Please restart his Plavix Consultation Date/Type/Reason Admit Date/Time Initial Consult Date Type of Consult Neurosurgery Date/Time of Note DATE: 03/16/19 TIME: 15:12 24 HR Interval Summary Free Text/Dictation POD5 T12-L4 PSIF for L2 chance fracture - doing well, +BM - transfer to ARU today Exam/Review of Systems Exam Exam 5/5 strength inc c/d/i REYNA STEELE MD Mar 16, 2019 15:14
[2019-03-16] MEDS ORDERED: PENDING SANTYL ORDER FOR WOUND CARE XX PRN (16:30)
[2019-03-16] MEDS ORDERED: BISACODYL 10 MG SUPP PR PRN (16:30)
[2019-03-16] MEDS ORDERED: MAGNESIUM HYDROXIDE 30ML CUP PO PRN (16:30)
[2019-03-16] MEDS ORDERED: LACTULOSE 30ML CUP PO PRN (16:30)
[2019-03-16 17:00] VITALS: BP 126/58; PULSE 89; RESP 18; Ht 177.8 cm; Wt 96.0 kg
[2019-03-16] MEDS ORDERED: NITROGLYCERIN (SL) 0.4 MG TAB SL PRN (17:00)
[2019-03-16] MEDS ORDERED: ACETAMINOPHEN 325 MG TAB PO PRN (17:00)
[2019-03-16] MEDS ORDERED: BISACODYL (EC) 5 MG TAB PO PRN (17:00)
[2019-03-16] MEDS ORDERED: ALUMINUM HYDROXIDE 30 ML CUP PO PRN (17:00)
[2019-03-16] MEDS ORDERED: ONDANSETRON 4 MG INJ IV PRN (17:00)
[2019-03-16] MEDS ORDERED: HYDROCODONE/APAP (5/325) TAB PO PRN (17:00)
[2019-03-16] MEDS ORDERED: AL HYDROX/MG HYDROX/SIMETH 30 ML CUP PO PRN (17:30)
[2019-03-16 20:00] VITALS: BP 131/61; PULSE 88; RESP 18
[2019-03-16] MEDS ORDERED: DOCUSATE SODIUM 100 MG CAP PO SCH (21:00)
[2019-03-16] MEDS: DOCUSATE SODIUM 100 MG CAP PO SCH (21:38)
[2019-03-16] MEDS: SENNA TAB PO SCH (21:38)
[2019-03-16] MEDS: traZODone 50 MG TAB PO SCH (21:38)
[2019-03-16] MEDS: CLOPIDOGREL 75 MG TAB PO SCH (22:16)
[2019-03-17 02:00] VITALS: BP_SYST 112; BP_SYST 142; BP_DIAS 64; BP_DIAS 66; PULSE 101; PULSE 64; RESP 18
[2019-03-17] MEDS: morphine 2 MG INJ IV PRN (03:53)
[2019-03-17 07:00] VITALS: BP 149/64; PULSE 92; RESP 18
[2019-03-17] MEDS: METOPROLOL (XL) 50 MG TAB PO SCH (08:52)
[2019-03-17] MEDS: DOCUSATE SODIUM 100 MG CAP PO SCH ×2 (08:52→20:55)
[2019-03-17] MEDS: CLOPIDOGREL 75 MG TAB PO SCH (09:18)
[2019-03-17] MEDS: SILVER SULFADIAZINE 1% 25 GM CR TOP SCH (09:19)
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
[2019-03-17] MEDS: MULTIVITAMINS THERAPEUTIC TAB PO SCH (13:06)
[2019-03-17] MEDS: ASCORBIC ACID 500 MG TAB PO SCH (13:06)
[2019-03-17 14:00] VITALS: BP 150/71; PULSE 88; RESP 18
--- NOTE | 2019-03-17 14:09 | CONS ---
Assessment/Plan Assessment/Plan Hospital Course (Demo Recall) IMPRESSION: 1. Preoperative evaluation prior to surgery for traumatic L2 fracture with associated hematoma.-Now post- s/p t12-L4 arthrodesis 2. No portal hypertension, but on a beta carlos at baseline. 3. History of percutaneous transluminal coronary angioplasty and stent placement, most recently 2014.-NL EF by echo and no sig valve abnl 4. 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 5. Possible dyslipidemia by medications although the patient denies. 6. Traumatic L2 fracture. 7. History of lymphedema per patient, currently resolved. 8. Ankylosing spondylitis by CT. 9. Severe osteoarthritis. 10. chest pain-resolved/negative trop's Recc: -Now in rehab -Now on back on plavix -pain control -Continue abx prophyaxis -local wound care -serial ecg's -PRN SL NTG Consultation Date/Type/Reason Admit Date/Time Mar 16, 2019 at 16:00 Initial Consult Date 03/16/19 Type of Consult Cardiology Reason for Consultation chest pain Requesting Provider: ALECIA SANTIAGO NP Date/Time of Note DATE: 03/17/19 TIME: 14:05 Exam/Review of Systems Vital Signs Vitals Vital Signs Date Temp Pulse Resp B/P (MAP) Pulse Ox O2 O2 Flow FiO2 Time Delivery Rate 03/17/19 Nasal 2.0 08:00 Cannula 03/17/19 97.7 92 18 149/64 07:00 (92) 03/17/19 97 02:00 Intake and Output 03/16/19 03/16/19 03/17/19 1515:00 23:00 07:00 IntakeIntake Total 360 ml OutputOutput Total 300 ml BalanceBalance 60 ml Exam Exam Review of Systems: CONSTITUTIONAL: No fevers, chills. PULMONARY: No sob CARDIOVASCULAR: No chest pain/palpitations GASTROINTESTINAL: No nausea/vomiting. GENITOURINARY: No hematuria/dysuria. MUSCULOSKELETAL: back pain PSYCHIATRIC: The patient denies depression. NEUROLOGIC: No weakness Constitutional: alert Psych: no complaints Head: normocephalic ENMT: mucosa pink and moist Neck: supple, jvd (9 cm water) Respiratory: diminished breath sounds (at bases/B) Cardiovascular: regular rate and rhythm Gastrointestinal: soft, non-tender Musculoskeletal: muscle weakness (none) Extremities: other (No focal deficts) Labs Result Diagram: 03/17/19 0607 03/17/19 0607 Results 24hrs Laboratory Tests Test 03/16/19 18:05 03/17/19 06:07 Urine Color YELLOW Urine Clarity CLEAR Urine pH 6.0 Urine Specific [place] 1.018 Urine Ketones TRACE A Urine Nitrite NEGATIVE Urine Bilirubin NEGATIVE Urine Urobilinogen 1+ H Urine Leukocyte Esterase NEGATIVE Urine Microscopic RBC 11 H Urine Microscopic WBC 5 Urine Hemoglobin 1+ H Urine Glucose NEGATIVE Urine Total Protein NEGATIVE White Blood Count 9.7 Red Blood Count 3.16 L Hemoglobin 9.2 L Hematocrit 28.3 L Mean Corpuscular Volume 89.6 Mean Corpuscular Hemoglobin 29.1 Mean Corpuscular Hemoglobin Concent 32.5 Red Cell Distribution Width 14.3 Platelet Count 395 # Mean Platelet Volume 8.8 Immature Granulocytes % 0.800 H Neutrophils % 69.3 Lymphocytes % 11.5 L Monocytes % 15.2 H Eosinophils % 2.9 Basophils % 0.3 Nucleated Red Blood Cells % 0.0 Immature Granulocytes # 0.080 H Neutrophils # 6.7 Lymphocytes # 1.1 Monocytes # 1.5 H Eosinophils # 0.3 Basophils # 0.0 Nucleated Red Blood Cells # 0.0 Sodium Level 135 Potassium Level 4.0 Chloride Level 96 L Carbon Dioxide Level 30 Anion Gap 9 Blood Urea Nitrogen 21 H Creatinine 0.64 Est Glomerular Filtrat Rate mL/min Glucose Level 146 Calcium Level 7.8 L Total Bilirubin 0.8 Direct Bilirubin 0.00 Indirect Bilirubin 0.8 Aspartate Amino Transf (AST/SGOT) 24 Alanine Aminotransferase (ALT/SGPT) 22 Alkaline Phosphatase 54 Total Protein 5.5 L Albumin 2.6 L Globulin 2.90 Albumin/Globulin Ratio 0.89 Medications Medications Current Medications Miscellaneous Information (Pending [facility] Order For Wound Care) This patient mejia... PRN PRN XX WOUND CARE; Start 03/16/19 at 16:30 Senna (Senokot) 1 tab HS PO Last administered on 03/16/19at 21:38; Admin Dose 1 TAB; Start 03/16/19 at 21:00 Magnesium Hydroxide (Milk Of Mag) 30 ml BID PRN PO CONSTIPATION; Start 03/16/19 at 16:30 Lactulose (Enulose) 20 gm DAILY PRN PO CONSTIPATION; Start 03/16/19 at 16:30 Bisacodyl (Dulcolax Supp) [address] CONSTIPATION; Start 03/16/19 at 16:30 Docusate Sodium (Colace) 100 mg Q12 PO Last administered on 03/17/19 08:52; Admin Dose 100 MG; Start 03/16/19 at 21:00 Acetaminophen (Tylenol Tab) 325 mg Q6H PRN PO MILD PAIN(1-3)OR ELEVATED TEMP; Start 03/16/19 at 17:00 Bisacodyl (Dulcolax) 5 mg DAILY PRN PO CONSTIPATION; Start 03/16/19 at 17:00 Acetaminophen/ Hydrocodone Bitart ([place] (5/325)) 1 tab Q6H PRN PO MODERATE PAIN LEVEL 4-6 Last administered on 03/17/19 02:30; Admin Dose 1 TAB; Start 03/16/19 at 17:00 Metoprolol Succinate (Toprol Xl) 50 mg DAILY PO Last administered on 03/17/19 08:52; Admin Dose 50 MG; Start 03/17/19 at 09:00 Morphine Sulfate (morphine) 2 mg Q4H PRN IV SEVERE PAIN LEVEL 7-10 Last administered on 03/17/19 03:53; Admin Dose 2 MG; Start 03/16/19 at 17:00 Nitroglycerin (Nitroglycerin (Sl Tab) 0.4 Mg) 1 tab Q5M PRN SL ANGINA; Start 03/16/19 at 17:00 Ondansetron HCl (Zofran Inj) 4 mg Q6H PRN IV NAUSEA AND/OR VOMITING Last administered on 03/17/19 09:19; Admin Dose 4 MG; Start 03/16/19 at 17:00 Trazodone HCl (Desyrel) 25 mg HS PO Last administered on 03/16/19at 21:38; Admin Dose 25 MG; Start 03/16/19 at 21:00 Clopidogrel Bisulfate (plaVIX) 75 mg DAILY PO Last administered on 03/17/19 09:18; Admin Dose 75 MG; Start 03/16/19 at 20:00 Al Hydrox/Mg Hydrox/Simethicone (Mag-Al Plus) 30 ml Q6H PRN PO GASTROINTESTINAL UPSET; Start 03/16/19 at 17:30 Silver Sulfadiazine (Thermazene 1% 25 Gm) 1 applic DAILY TOP Last administered on 03/17/19at 09:19; Admin Dose 1 APPLIC; Start 03/17/19 at 09:00 Hydrocortisone (Hydrocortisone 0.5% Cr) 1 applic BID PRN TOP ITCHING; Start 03/17/19 at 13:00 Multivitamins Therapeutic (Theragran) 1 tab DAILY PO Last administered on 03/17/19at 13:06; Admin Dose 1 TAB; Start 03/17/19 at 12:30 Ascorbic Acid (Vitamin C) 500 mg DAILY PO Last administered on 03/17/19at 13:06; Admin Dose 500 MG; Start 03/17/19 at 12:30 MICKEY SOLITARIO Mar 17, 2019 14:09
[2019-03-17] MEDS: HYDROCORTISONE 0.5% 28.35 GM CR TOP PRN (17:17)
[2019-03-17 20:00] VITALS: BP 147/68; PULSE 92; RESP 18
[2019-03-17] MEDS: traZODone 50 MG TAB PO SCH (20:55)
[2019-03-17] MEDS: SENNA TAB PO SCH (20:55)
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
[2019-03-18 02:00] VITALS: BP 138/63; PULSE 87; RESP 18
[2019-03-18 07:30] VITALS: BP 150/68; PULSE 88; RESP 20
[2019-03-18] MEDS: METOPROLOL (XL) 50 MG TAB PO SCH (08:52)
[2019-03-18] MEDS: MULTIVITAMINS THERAPEUTIC TAB PO SCH (08:52)
[2019-03-18] MEDS: DOCUSATE SODIUM 100 MG CAP PO SCH ×2 (08:52→21:17)
[2019-03-18] MEDS: ASCORBIC ACID 500 MG TAB PO SCH (08:52)
[2019-03-18] MEDS: CLOPIDOGREL 75 MG TAB PO SCH (08:52)
[2019-03-18 08:53] VITALS: BP 128/70; RESP 19
[2019-03-18] MEDS: morphine 2 MG INJ IV PRN (08:53)
[2019-03-18] MEDS: SILVER SULFADIAZINE 1% 25 GM CR TOP SCH (08:54)
--- NOTE | 2019-03-18 12:25 | PN ---
Date/Time of Note Date/Time of Note DATE: 03/18/19 TIME: 12:25 Objective Vital Signs Date Temp Pulse Resp B/P (MAP) Pulse Ox O2 O2 Flow FiO2 Time Delivery Rate 03/18/19 98.0 88 20 150/68 97 Nasal 2.0 07:30 (95) Cannula Intake and Output 03/17/19 03/17/19 03/18/19 1515:00 23:00 07:00 IntakeIntake Total 200 ml 1620 ml OutputOutput Total 1200 ml 1750 ml BalanceBalance -1000 ml -130 ml Exam INTERDISCIPLINARY TEAM CONFERENCE Attended by PT, OT, ST, Canary Breeder, Social Work, Rehabilitation Nursing, Facility Specialist and Capacity Planning ManagerAed Trainer Exam: Pulm-cta Abd-soft BOWEL- Cont BLADDER-Cont SKIN- improving OT- DRESSING-max BATHING-max TOILETING-max PT- BED MOBILITY-max TRANSFERS-max AMBULATION-max COGNITION- PT and OT working on functional cognition Dysphagia- continue current diet A/P- Interdisciplinary team conference held today. Please see interdisciplinary sheet. Working toward d.c. on 03/26 with post discharge follow up of physical therapy, occupational therapy. Results/Medications Result Diagram: 03/17/19 0607 03/17/19 0607 Medications Current Medications Miscellaneous Information (Pending [facility] Order For Wound Care) This patient mejia... PRN PRN XX WOUND CARE; Start 03/16/19 at 16:30 Senna (Senokot) 1 tab HS PO Last administered on 03/17/19at 20:55; Admin Dose 1 TAB; Start 03/16/19 at 21:00 Magnesium Hydroxide (Milk Of Mag) 30 ml BID PRN PO CONSTIPATION; Start 03/16/19 at 16:30 Lactulose (Enulose) 20 gm DAILY PRN PO CONSTIPATION; Start 03/16/19 at 16:30 Bisacodyl (Dulcolax Supp) 10 mg DAILY PRN [place] CONSTIPATION; Start 03/16/19 at 16:30 Docusate Sodium (Colace) 100 mg Q12 PO Last administered on 03/18/19at 08:52; Admin Dose 100 MG; Start 03/16/19 at 21:00 Acetaminophen (Tylenol Tab) 325 mg Q6H PRN PO MILD PAIN(1-3)OR ELEVATED TEMP; Start 03/16/19 at 17:00 Bisacodyl (Dulcolax) 5 mg DAILY PRN PO CONSTIPATION Last administered on 03/18/19 08:53; Admin Dose 5 MG; Start 03/16/19 at 17:00 Acetaminophen/ Hydrocodone Bitart ([place] (5/325)) 1 tab Q6H PRN PO MODERATE PAIN LEVEL 4-6 Last administered on 03/17/19 02:30; Admin Dose 1 TAB; Start at 17:00 Metoprolol Succinate (Toprol Xl) 50 mg DAILY PO Last administered on 03/18/19 08:52; Admin Dose 50 MG; Start 03/17/19 at 09:00 Morphine Sulfate (morphine) 2 mg Q4H PRN IV SEVERE PAIN LEVEL 7-10 Last administered on 03/18/19 08:53; Admin Dose 2 MG; Start 03/16/19 at 17:00 Nitroglycerin (Nitroglycerin (Sl Tab) 0.4 Mg) 1 tab Q5M PRN SL ANGINA; Start 03/16/19 at 17:00 Ondansetron HCl (Zofran Inj) 4 mg Q6H PRN IV NAUSEA AND/OR VOMITING Last administered on 03/17/19 09:19; Admin Dose 4 MG; Start 03/16/19 at 17:00 Trazodone HCl (Desyrel) 25 mg HS PO Last administered on 03/17/19 20:55; Admin Dose 25 MG; Start 03/16/19 at 21:00 Clopidogrel Bisulfate (plaVIX) 75 mg DAILY PO Last administered on 03/18/19 08:52; Admin Dose 75 MG; Start 03/16/19 at 20:00 Al Hydrox/Mg Hydrox/Simethicone (Mag-Al Plus) 30 ml Q6H PRN PO GASTROINTESTINAL UPSET; Start 03/16/19 at 17:30 Silver Sulfadiazine (Thermazene 1% 25 Gm) 1 applic DAILY TOP Last administered on 03/18/19 08:54; Admin Dose 1 APPLIC; Start 03/17/19 at 09:00 Hydrocortisone (Hydrocortisone 0.5% Cr) 1 applic BID PRN TOP ITCHING Last administered on 03/17/19 17:17; Admin Dose 1 APPLIC; Start 03/17/19 at 13:00 Multivitamins Therapeutic (Theragran) 1 tab DAILY PO Last administered on 03/18/19at 08:52; Admin Dose 1 TAB; Start 03/17/19 at 12:30 Ascorbic Acid (Vitamin C) 500 mg DAILY PO Last administered on 03/18/19at 08:52; Admin Dose 500 MG; Start 03/17/19 at 12:30 YEHUDA CRAMER MD Mar 18, 2019 12:25
--- NOTE | 2019-03-18 12:35 | CONS ---
Assessment/Plan Assessment/Plan Hospital Course (Demo Recall) IMPRESSION: 1. Preoperative evaluation prior to surgery for traumatic L2 fracture with associated hematoma.-Now post- s/p t12-L4 arthrodesis 2. No portal hypertension, but on a beta carlos at baseline. 3. History of percutaneous transluminal coronary angioplasty and stent placement, most recently 2014.-NL EF by echo and no sig valve abnl 4. 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 5. Possible dyslipidemia by medications although the patient denies. 6. Traumatic L2 fracture. 7. History of lymphedema per patient, currently resolved. 8. Ankylosing spondylitis by CT. 9. Severe osteoarthritis. 10. chest pain-resolved/negative trop's Recc: -Now in rehab -Now on back on plavix -Continue BB -pain control -Continue abx prophyaxis -local wound care -serial ecg's -PRN SL NTG Consultation Date/Type/Reason Admit Date/Time Mar 16, 2019 at 16:00 Initial Consult Date 03/16/19 Type of Consult Cardiology Reason for Consultation HTN Requesting Provider: ALECIA SANTIAGO NP Date/Time of Note DATE: 03/18/19 TIME: 12:28 Exam/Review of Systems Vital Signs Vitals Vital Signs Date Temp Pulse Resp B/P (MAP) Pulse Ox O2 O2 Flow FiO2 Time Delivery Rate 03/18/19 98.0 88 20 150/68 97 Nasal 2.0 07:30 (95) Cannula Intake and Output 03/17/19 03/17/19 03/18/19 1515:00 23:00 07:00 IntakeIntake Total 200 ml 1620 ml OutputOutput Total 1200 ml 1750 ml BalanceBalance -1000 ml -130 ml Exam Exam Review of Systems: CONSTITUTIONAL: No fevers, chills. PULMONARY: No sob CARDIOVASCULAR: No chest pain/palpitations GASTROINTESTINAL: No nausea/vomiting. GENITOURINARY: No hematuria/dysuria. MUSCULOSKELETAL: No myagias/arthalgias. PSYCHIATRIC: The patient denies depression. NEUROLOGIC: No weakness Constitutional: alert Psych: no complaints Head: normocephalic ENMT: mucosa pink and moist Neck: supple, jvd (9 cm water) Respiratory: diminished breath sounds Cardiovascular: regular rate and rhythm Gastrointestinal: soft, non-tender Musculoskeletal: muscle tone (normal) Extremities: edema (none) Neurological: other (NO focal deficits) Labs Result Diagram: 03/17/1960603/17/19606 Medications Medications Current Medications Miscellaneous Information (Pending [facility] Order For Wound Care) This patient mejia... PRN PRN XX WOUND CARE; Start 03/16/19 at 16:30 Senna (Senokot) 1 tab HS PO Last administered on 03/17/19at 20:55; Admin Dose 1 TAB; Start 03/16/19 at 21:00 Magnesium Hydroxide (Milk Of Mag) 30 ml BID PRN PO CONSTIPATION; Start 03/16/19 at 16:30 Lactulose (Enulose) 20 gm DAILY PRN PO CONSTIPATION; Start 03/16/19 at 16:30 Bisacodyl (Dulcolax Supp) 10 mg DAILY PRN [place] CONSTIPATION; Start 03/16/19 at 16:30 Docusate Sodium (Colace) 100 mg Q12 PO Last administered on 03/18/19at 08:52; Admin Dose 100 MG; Start 03/16/19 at 21:00 Acetaminophen (Tylenol Tab) 325 mg Q6H PRN PO MILD PAIN(1-3)OR ELEVATED TEMP; Start 03/16/19 at 17:00 Bisacodyl (Dulcolax) 5 mg DAILY PRN PO CONSTIPATION Last administered on 03/18/19 08:53; Admin Dose 5 MG; Start 03/16/19 at 17:00 Acetaminophen/ Hydrocodone Bitart ([place] (5/325)) 1 tab Q6H PRN PO MODERATE PAIN LEVEL 4-6 Last administered on 03/17/19at 02:30; Admin Dose 1 TAB; Start 03/16/19 at 17:00 Metoprolol Succinate (Toprol Xl) 50 mg DAILY PO Last administered on 03/18/19 08:52; Admin Dose 50 MG; Start 03/17/19 at 09:00 Morphine Sulfate (morphine) 2 mg Q4H PRN IV SEVERE PAIN LEVEL 7-10 Last administered on 03/18/19 08:53; Admin Dose 2 MG; Start 03/16/19 at 17:00 Nitroglycerin (Nitroglycerin (Sl Tab) 0.4 Mg) 1 tab Q5M PRN SL ANGINA; Start 03/16/19 at 17:00 Ondansetron HCl (Zofran Inj) 4 mg Q6H PRN IV NAUSEA AND/OR VOMITING Last administered on 03/17/19 09:19; Admin Dose 4 MG; Start 03/16/19 at 17:00 Trazodone HCl (Desyrel) 25 mg HS PO Last administered on 03/17/19 20:55; Admin Dose 25 MG; Start 03/16/19 at 21:00 Clopidogrel Bisulfate (plaVIX) 75 mg DAILY PO Last administered on 03/18/19 08:52; Admin Dose 75 MG; Start 03/16/19 at 20:00 Al Hydrox/Mg Hydrox/Simethicone (Mag-Al Plus) 30 ml Q6H PRN PO GASTROINTESTINAL UPSET; Start 03/16/19 at 17:30 Silver Sulfadiazine (Thermazene 1% 25 Gm) 1 applic DAILY TOP Last administered on 03/18/19 08:54; Admin Dose 1 APPLIC; Start 03/17/19 at 09:00 Hydrocortisone (Hydrocortisone 0.5% Cr) 1 applic BID PRN TOP ITCHING Last administered on 03/17/19 17:17; Admin Dose 1 APPLIC; Start 03/17/19 at 13:00 Multivitamins Therapeutic (Theragran) 1 tab DAILY PO Last administered on 03/18/19 08:52; Admin Dose 1 TAB; Start 03/17/19 at 12:30 Ascorbic Acid (Vitamin C) 500 mg DAILY PO Last administered on 03/18/19 08:52; Admin Dose 500 MG; Start 03/17/19 at 12:30 MICKEY SOLITARIO Mar 18, 2019 12:35
[2019-03-18 14:00] VITALS: BP 130/60; PULSE 84; RESP 18
--- NOTE | 2019-03-18 15:16 | PN ---
Date/Time of Note Date/Time of Note DATE: 03/18/19 TIME: 15:15 Assessment/Plan VTE Prophylaxis Risk score (from Ns)>0 risk: 7 SCD applied (from Ns): Yes Pharmacological prophylaxis: NA/contraindicated Pharm contraindication: low risk/ambulating Lines/Catheters [facility] Saline Lock Urinary Cath still in place: No Assessment/Plan Hospital Course SUBJECTIVE: No acute overnight episodes. OBJECTIVE: Vital signs-see below PHYSICAL EXAM: Constitutional: Elderly male,not in acute distress. HEENT: Head atraumatic and normocephalic. Eyes: Extraocular muscles intact. Anicteric sclerae. Pupils equal bilaterally, reactive to light. NECK: Supple without lymph node. CHEST: Clear and good breath sounds equally. No wheezing. No rhonchi. HEART: S1, S2. Regular rate and rhythm. ABDOMEN: Soft/non tender with no rebound tenderness. Bowel sounds were present. EXTREMITIES: Dressing LLE c/d/i. Lower back surgical site intact w/montserrat. No cyanosis, clubbing or edema. NEUROLOGIC: Alert and oriented x3. No focal deficit. No sensory deficit. PSYCHOSOCIAL: No signs of depression. INTEGUMENTARY: No open wounds. ASSESSMENT AND PLAN: L2 chance fracture -s/p T12 to L4 posterolateral arthrodesis with allograft 03/11 -Followed by neurosurgery with plan for staple removal next wk -Wound care per NS instructions CAD/PCI w/stent -cont.antiplatelet (cleared from NS)/bb Anemia,likely chronic -stable HTN -Continue beta-blockers. Started on NICHOLAS inhibitor low-dose today. DVT ppx:Ambulation Patient was seen in collaboration with Result Diagram: 03/17/19 0607 03/17/19 0607 Exam/Review of Systems Exam Vitals Vital Signs Date Temp Pulse Resp B/P (MAP) Pulse Ox O2 O2 Flow FiO2 Time Delivery Rate 03/18/19 98.0 88 20 150/68 97 Nasal 2.0 07:30 (95) Cannula Intake and Output 03/17/19 03/17/19 03/18/19 1515:00 23:00 07:00 IntakeIntake Total 200 ml 1620 ml OutputOutput Total 1200 ml 1750 ml BalanceBalance -1000 ml -130 ml Medications Medication Current Medications Miscellaneous Information (Pending Santyl Order For Wound Care) This patient mejia... PRN PRN XX WOUND CARE; Start 03/16/19 at 16:30 Senna (Senokot) 1 tab HS PO Last administered on 03/17/19at 20:55; Admin Dose 1 TAB; Start 03/16/19 at 21:00 Magnesium Hydroxide (Milk Of Mag) 30 ml BID PRN PO CONSTIPATION; Start 03/16/19 at 16:30 Lactulose (Enulose) 20 gm DAILY PRN PO CONSTIPATION; Start 03/16/19 at 16:30 Bisacodyl (Dulcolax Supp) 10 mg DAILY PRN [place] CONSTIPATION; Start 03/16/19 at 16:30 Docusate Sodium (Colace) 100 mg Q12 PO Last administered on 03/18/19 08:52; Admin Dose 100 MG; Start 03/16/19 at 21:00 Acetaminophen (Tylenol Tab) 325 mg Q6H PRN PO MILD PAIN(1-3)OR ELEVATED TEMP; Start 03/16/19 at 17:00 Bisacodyl (Dulcolax) 5 mg DAILY PRN PO CONSTIPATION Last administered on 03/18/19 08:53; Admin Dose 5 MG; Start 03/16/19 at 17:00 Acetaminophen/ Hydrocodone Bitart ([place] [employer] (5/325)) 1 tab Q6H PRN PO MODERATE PAIN LEVEL 4-6 Last administered on 03/17/19 02:30; Admin Dose 1 TAB; Start 03/16/19 at 17:00 Metoprolol Succinate (Toprol Xl) 50 mg DAILY PO Last administered on 03/18/19 08:52; Admin Dose 50 MG; Start 03/17/19 at 09:00 Morphine Sulfate (morphine) 2 mg Q4H PRN IV SEVERE PAIN LEVEL 7-10 Last administered on 03/18/19 08:53; Admin Dose 2 MG; Start 03/16/19 at 17:00 Nitroglycerin (Nitroglycerin (Sl Tab) 0.4 Mg) 1 tab Q5M PRN SL ANGINA; Start 03/16/19 at 17:00 Ondansetron HCl (Zofran Inj) 4 mg Q6H PRN IV NAUSEA AND/OR VOMITING Last administered on 03/17/19 09:19; Admin Dose 4 MG; Start 03/16/19 at 17:00 Trazodone HCl (Desyrel) 25 mg HS PO Last administered on 03/17/19 20:55; Admin Dose 25 MG; Start 03/16/19 at 21:00 Clopidogrel Bisulfate (plaVIX) 75 mg DAILY PO Last administered on 03/18/19 08:52; Admin Dose 75 MG; Start 03/16/19 at 20:00 Al Hydrox/Mg Hydrox/Simethicone (Mag-Al Plus) 30 ml Q6H PRN PO GASTROINTESTINAL UPSET; Start 03/16/19 at 17:30 Silver Sulfadiazine (Thermazene 1% 25 Gm) 1 applic DAILY TOP Last administered on 03/18/19 08:54; Admin Dose 1 APPLIC; Start 03/17/19 at 09:00 Hydrocortisone (Hydrocortisone 0.5% Cr) 1 applic BID PRN [place] ITCHING Last administered on 03/17/19 17:17; Admin Dose 1 APPLIC; Start 03/17/19 at 13:00 Multivitamins Therapeutic (Theragran) 1 tab DAILY PO Last administered on 03/18/19at 08:52; Admin Dose 1 TAB; Start 03/17/19 at 12:30 Ascorbic Acid (Vitamin C) 500 mg DAILY PO Last administered on 03/18/19 08:52; Admin Dose 500 MG; Start 03/17/19 at 12:30 Benazepril HCl (Lotensin) 10 mg DAILY PO ; Start 03/19/19 at 09:00 ALECIA SANTIAGO NP Mar 18, 2019 15:16
[2019-03-18] MEDS ORDERED: HYDROCODONE/APAP (5/325) TAB PO PRN (19:00)
[2019-03-18 19:38] VITALS: BP 137/65; PULSE 88; RESP 18
[2019-03-18] MEDS ORDERED: morphine 2 MG INJ IV PRN (21:00)
[2019-03-18] MEDS: SENNA TAB PO SCH (21:17)
[2019-03-18] MEDS: traZODone 50 MG TAB PO SCH (21:18)
[2019-03-19 02:44] VITALS: BP 142/66; PULSE 80; RESP 19
[2019-03-19 07:30] VITALS: BP 128/58; PULSE 88; RESP 20
[2019-03-19] MEDS: DOCUSATE SODIUM 100 MG CAP PO SCH ×2 (09:03→20:15)
[2019-03-19] MEDS: CLOPIDOGREL 75 MG TAB PO SCH (09:03)
[2019-03-19] MEDS: MULTIVITAMINS THERAPEUTIC TAB PO SCH (09:03)
[2019-03-19] MEDS: BENAZEPRIL 10 MG TAB PO SCH (09:03)
[2019-03-19] MEDS: METOPROLOL (XL) 50 MG TAB PO SCH (09:04)
[2019-03-19] MEDS: ASCORBIC ACID 500 MG TAB PO SCH (09:04)
[2019-03-19] MEDS: SILVER SULFADIAZINE 1% 25 GM CR TOP SCH (09:05)
--- NOTE | 2019-03-19 13:43 | CONS ---
Assessment/Plan Assessment/Plan Hospital Course (Demo Recall) IMPRESSION: 1. Preoperative evaluation prior to surgery for traumatic L2 fracture with associated hematoma.-Now post- s/p t12-L4 arthrodesis 2. No portal hypertension, but on a beta carlos at baseline. 3. History of percutaneous transluminal coronary angioplasty and stent placement, most recently 2014.-NL EF by echo and no sig valve abnl 4. 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 5. Possible dyslipidemia by medications although the patient denies. 6. Traumatic L2 fracture. 7. History of lymphedema per patient, currently resolved. 8. Ankylosing spondylitis by CT. 9. Severe osteoarthritis. 10. chest pain-resolved/negative trop's Recc: -Now in rehab -Now on back on plavix -Continue BB -pain control -Continue abx prophyaxis -local wound care -serial ecg's -PRN SL NTG Consultation Date/Type/Reason Admit Date/Time Mar 16, 2019 at 16:00 Initial Consult Date 03/16/19 Type of Consult Cardiology Reason for Consultation chest pain Requesting Provider: ALECIA SANTIAGO NP Date/Time of Note DATE: 03/19/19 TIME: 13:42 Exam/Review of Systems Vital Signs Vitals Vital Signs Date Temp Pulse Resp B/P (MAP) Pulse Ox O2 O2 Flow FiO2 Time Delivery Rate 03/19/19 98.2 88 20 128/58 100 Nasal 2.0 07:30 (81) Cannula Intake and Output 03/18/19 03/18/19 03/19/19 1515:00 23:00 07:00 IntakeIntake Total 1150 ml 970 ml 480 ml OutputOutput Total 420 ml 600 ml BalanceBalance 1150 ml 550 ml -120 ml Exam Exam Review of Systems: CONSTITUTIONAL: No fevers, chills. PULMONARY: No sob CARDIOVASCULAR: No chest pain/palpitations GASTROINTESTINAL: No nausea/vomiting. GENITOURINARY: No hematuria/dysuria. MUSCULOSKELETAL: back pain improving PSYCHIATRIC: The patient denies depression. NEUROLOGIC: No weakness Constitutional: alert, oriented Psych: no complaints Head: normocephalic Neck: supple, jvd (9 cm water) Respiratory: diminished breath sounds (at bases/B) Cardiovascular: regular rate and rhythm Gastrointestinal: soft, non-tender Musculoskeletal: muscle tone (normal) Extremities: edema (no focal deficits) Labs Result Diagram: 03/17/1960603/17/19 06 Medications Medications Current Medications Miscellaneous Information (Pending [facility] Order For Wound Care) This patient mejia... PRN PRN XX WOUND CARE; Start 03/16/19 at 16:30 Senna (Senokot) 1 tab HS PO Last administered on 03/18/19at 21:17; Admin Dose 1 TAB; Start 03/16/19 at 21:00 Magnesium Hydroxide (Milk Of Mag) 30 ml BID PRN PO CONSTIPATION; Start 03/16/19 at 16:30 Lactulose (Enulose) 20 gm DAILY PRN PO CONSTIPATION; Start 03/16/19 at 16:30 Bisacodyl (Dulcolax Supp) 10 mg DAILY PRN [place] CONSTIPATION; Start 03/16/19 at 16:30 Docusate Sodium (Colace) 100 mg Q12 PO Last administered on 03/19/19at 09:03; Admin Dose 100 MG; Start 03/16/19 at 21:00 Acetaminophen (Tylenol Tab) 325 mg Q6H PRN PO MILD PAIN(1-3)OR ELEVATED TEMP; Start 03/16/19 at 17:00 Bisacodyl (Dulcolax) 5 mg DAILY PRN PO CONSTIPATION Last administered on 03/18/19at 08:53; Admin Dose 5 MG; Start 03/16/19 at 17:00 Acetaminophen/ Hydrocodone Bitart ([place] (5/325)) 1 tab Q6H PRN PO BREAKTHROUGH PAIN Last administered on 03/17/19at 02:30; Admin Dose 1 TAB; Start 03/16/19 at 17:00 Metoprolol Succinate (Toprol Xl) 50 mg DAILY PO Last administered on 03/19/19at 09:04; Admin Dose 50 MG; Start 03/17/19 at 09:00 Nitroglycerin (Nitroglycerin (Sl Tab) 0.4 Mg) 1 tab Q5M PRN SL ANGINA; Start 03/16/19 at 17:00 Ondansetron HCl (Zofran Inj) 4 mg Q6H PRN IV NAUSEA AND/OR VOMITING Last administered on 03/17/19at 09:19; Admin Dose 4 MG; Start 03/16/19 at 17:00 Trazodone HCl (Desyrel) 25 mg HS PO Last administered on 03/18/19 21:18; Admin Dose 25 MG; Start 03/16/19 at 21:00 Clopidogrel Bisulfate (plaVIX) 75 mg DAILY PO Last administered on 03/19/19at 09:03; Admin Dose 75 MG; Start 03/16/19 at 20:00 Al Hydrox/Mg Hydrox/Simethicone (Mag-Al Plus) 30 ml Q6H PRN PO GASTROINTESTINAL UPSET; Start 03/16/19 at 17:30 Silver Sulfadiazine (Thermazene 1% 25 Gm) 1 applic DAILY TOP Last administered on 03/19/19at 09:05; Admin Dose 1 APPLIC; Start 03/17/19 at 09:00 Hydrocortisone (Hydrocortisone 0.5% Cr) 1 applic BID PRN [place] ITCHING Last administered on 03/17/19at 17:17; Admin Dose 1 APPLIC; Start 03/17/19 at 13:00 Multivitamins Therapeutic (Theragran) 1 tab DAILY PO Last administered on 03/19/19at 09:03; Admin Dose 1 TAB; Start 03/17/19 at 12:30 Ascorbic Acid (Vitamin C) 500 mg DAILY PO Last administered on 03/19/19at 09:04; Admin Dose 500 MG; Start 03/17/19 at 12:30 Benazepril HCl (Lotensin) 10 mg DAILY PO Last administered on 03/19/19at 09:03; Admin Dose 10 MG; Start 03/19/19 at 09:00 Morphine Sulfate (morphine) 1 mg Q4H PRN IV SEVERE PAIN LEVEL 7-10; Start 03/18 at 21:00 Acetaminophen/ Hydrocodone Bitart ([place] (5/325)) 2 tab Q4H PRN PO MODERATE PAIN LEVEL 4-6; Start 03/18/19 at 19:00 MICKEY SOLITARIO Mar 19, 2019 13:43
[2019-03-19 14:00] VITALS: BP 117/55; PULSE 96; RESP 20
--- NOTE | 2019-03-19 14:00 | PN ---
Date/Time of Note Date/Time of Note DATE: 03/19/19 TIME: 13:59 Assessment/Plan VTE Prophylaxis Risk score (from [facility]0 risk: 8 SCD applied (from [facility] [place] Yes Pharmacological prophylaxis: NA/contraindicated Pharm contraindication: low risk/ambulating Lines/Catheters [facility] Saline Lock Urinary Cath still in place: No Assessment/Plan Hospital Course SUBJECTIVE: No acute overnight episodes. OBJECTIVE: Vital signs-see below PHYSICAL EXAM: Constitutional: Elderly male,not in acute distress. HEENT: Head atraumatic and normocephalic. Eyes: Extraocular muscles intact. Anicteric sclerae. Pupils equal bilaterally, reactive to light. NECK: Supple without lymph node. CHEST: Clear and good breath sounds equally. No wheezing. No rhonchi. HEART: S1, S2. Regular rate and rhythm. ABDOMEN: Soft/non tender with no rebound tenderness. Bowel sounds were present. EXTREMITIES: Dressing LLE c/d/i. Lower back surgical site intact w/montserrat. No cyanosis, clubbing or edema. NEUROLOGIC: Alert and oriented x3. No focal deficit. No sensory deficit. PSYCHOSOCIAL: No signs of depression. INTEGUMENTARY: No open wounds. ASSESSMENT AND PLAN: L2 chance fracture -s/p T12 to L4 posterolateral arthrodesis with allograft 03/11 -Followed by neurosurgery with plan for staple removal next wk -Wound care per NS instructions CAD/PCI w/stent -cont.antiplatelet (cleared from NS)/bb/ACEi Anemia,likely chronic -stable HTN -Continue beta-blockers/ NICHOLAS inhibitor DVT ppx:Ambulation Patient was seen in collaboration with Result Diagram: 03/17/19 0603/17/19 06 Exam/Review of Systems Exam Vitals Vital Signs Date Temp Pulse Resp B/P (MAP) Pulse Ox O2 O2 Flow FiO2 Time Delivery Rate 03/19/19 98.2 88 20 128/58 100 Nasal 2.0 07:30 (81) Cannula Intake and Output 03/18/19 03/18/19 03/19/19 1515:00 23:00 07:00 IntakeIntake Total 1150 ml 970 ml 480 ml OutputOutput Total 420 ml 600 ml BalanceBalance 1150 ml 550 ml -120 ml Medications Medication Current Medications Miscellaneous Information (Pending Santyl Order For Wound Care) This patient mejia... PRN PRN XX WOUND CARE; Start 03/16/19 at 16:30 Senna (Senokot) 1 tab HS PO Last administered on 03/18/19at 21:17; Admin Dose 1 TAB; Start 03/16/19 at 21:00 Magnesium Hydroxide (Milk Of Mag) 30 ml BID PRN PO CONSTIPATION; Start 03/16/19 at 16:30 Lactulose (Enulose) 20 gm DAILY PRN PO CONSTIPATION; Start 03/16/19 at 16:30 Bisacodyl (Dulcolax Supp) 10 mg DAILY PRN [place] CONSTIPATION; Start 03/16/19 at 16:30 Docusate Sodium (Colace) 100 mg Q12 PO Last administered on 03/19/19at 09:03; Admin Dose 100 MG; Start 03/16/19 at 21:00 Acetaminophen (Tylenol Tab) 325 mg Q6H PRN PO MILD PAIN(1-3)OR ELEVATED TEMP; Start 03/16/19 at 17:00 Bisacodyl (Dulcolax) 5 mg DAILY PRN PO CONSTIPATION Last administered on 03/18/19at 08:53; Admin Dose 5 MG; Start 03/16/19 at 17:00 Acetaminophen/ Hydrocodone Bitart ([place] (5/325)) 1 tab Q6H PRN PO BREAKTHROUGH PAIN Last administered on 03/17/19at 02:30; Admin Dose 1 TAB; Start 03/16/19 at 17:00 Metoprolol Succinate (Toprol Xl) 50 mg DAILY PO Last administered on 03/19/19at 09:04; Admin Dose 50 MG; Start 03/17/19 at 09:00 Nitroglycerin (Nitroglycerin (Sl Tab) 0.4 Mg) 1 tab Q5M PRN SL ANGINA; Start 03/16/19 at 17:00 Ondansetron HCl (Zofran Inj) 4 mg Q6H PRN IV NAUSEA AND/OR VOMITING Last administered on 03/17/19 09:19; Admin Dose 4 MG; Start 03/16/19 at 17:00 Trazodone HCl (Desyrel) 25 mg HS PO Last administered on 03/18/19at 21:18; Admin Dose 25 MG; Start 03/16/19 at 21:00 Clopidogrel Bisulfate (plaVIX) 75 mg DAILY PO Last administered on 03/19/19 09:03; Admin Dose 75 MG; Start 03/16/19 at 20:00 Al Hydrox/Mg Hydrox/Simethicone (Mag-Al Plus) 30 ml Q6H PRN PO GASTROINTESTINAL UPSET; Start 03/16/19 at 17:30 Silver Sulfadiazine (Thermazene 1% 25 Gm) 1 applic DAILY TOP Last administered on 03/19/19at 09:05; Admin Dose 1 APPLIC; Start 03/17/19 at 09:00 Hydrocortisone (Hydrocortisone 0.5% Cr) 1 applic BID PRN TOP ITCHING Last administered on 03/17/19at 17:17; Admin Dose 1 APPLIC; Start 03/17/19 at 13:00 Multivitamins Therapeutic (Theragran) 1 tab DAILY PO Last administered on 03/19/19at 09:03; Admin Dose 1 TAB; Start 03/17/19 at 12:30 Ascorbic Acid (Vitamin C) 500 mg DAILY PO Last administered on 03/19/19at 09:04; Admin Dose 500 MG; Start 03/17/19 at 12:30 Benazepril HCl (Lotensin) 10 mg DAILY PO Last administered on 03/19/19at 09:03; Admin Dose 10 MG; Start 03/19/19 at 09:00 Morphine Sulfate (morphine) 1 mg Q4H PRN IV SEVERE PAIN LEVEL 7-10; Start 03/18/19 at 21:00 Acetaminophen/ Hydrocodone Bitart ([place] (5/325)) 2 tab Q4H PRN PO MODERATE PAIN LEVEL 4-6; Start 03/18/19 at 19:00 ALECIA SANTIAGO NP Mar 19, 2019 14:00
--- NOTE | 2019-03-19 15:01 | PN ---
Date/Time of Note Date/Time of Note DATE: 03/19/19 TIME: 15:00 Subjective Improving Objective Vital Signs Date Temp Pulse Resp B/P (MAP) Pulse Ox O2 O2 Flow FiO2 Time Delivery Rate 03/19/19 97.6 96 20 117/55 99 Nasal 2.0 14:00 (75) Cannula Intake and Output 03/18/19 03/18/19 03/19/19 1515:00 23:00 07:00 IntakeIntake Total 1150 ml 970 ml 480 ml OutputOutput Total 420 ml 600 ml BalanceBalance 1150 ml 550 ml -120 ml Exam pulm-cta bd-soft mod ambulation Results/Medications Result Diagram: 03/17/19 0607 03/17/19 0607 Medications Current Medications Miscellaneous Information (Pending [facility] Order For Wound Care) This patient mejia... PRN PRN XX WOUND CARE; Start 03/16/19 at 16:30 Senna (Senokot) 1 tab HS PO Last administered on 03/18/19at 21:17; Admin Dose 1 TAB; Start 03/16/19 at 21:00 Magnesium Hydroxide (Milk Of Mag) 30 ml BID PRN PO CONSTIPATION; Start 03/16/19 at 16:30 Lactulose (Enulose) 20 gm DAILY PRN PO CONSTIPATION; Start 03/16/19 at 16:30 Bisacodyl (Dulcolax Supp) 10 mg DAILY PRN [place] CONSTIPATION; Start 03/16/19 at 16:30 Docusate Sodium (Colace) 100 mg Q12 PO Last administered on 03/19/19at 09:03; Admin Dose 100 MG; Start 03/16/19 at 21:00 Acetaminophen (Tylenol Tab) 325 mg Q6H PRN PO MILD PAIN(1-3)OR ELEVATED TEMP; Start 03/16/19 at 17:00 Bisacodyl (Dulcolax) 5 mg DAILY PRN PO CONSTIPATION Last administered on 03/18/19at 08:53; Admin Dose 5 MG; Start 03/16/19 at 17:00 Acetaminophen/ Hydrocodone Bitart ([place] (5/325)) 1 tab Q6H PRN PO BREAKTHROUGH PAIN Last administered on 03/17/19at 02:30; Admin Dose 1 TAB; Start 03/16/19 at 17:00 Metoprolol Succinate (Toprol Xl) 50 mg DAILY PO Last administered on 03/19/19 09:04; Admin Dose 50 MG; Start 03/17/19 at 09:00 Nitroglycerin (Nitroglycerin (Sl Tab) 0.4 Mg) 1 tab Q5M PRN SL ANGINA; Start 03/16/19 at 17:00 Ondansetron HCl (Zofran Inj) 4 mg Q6H PRN IV NAUSEA AND/OR VOMITING Last administered on 03/17/19 09:19; Admin Dose 4 MG; Start 03/16/19 at 17:00 Trazodone HCl (Desyrel) 25 mg HS PO Last administered on 03/18/19 21:18; Admin Dose 25 MG; Start 03/16/19 at 21:00 Clopidogrel Bisulfate (plaVIX) 75 mg DAILY PO Last administered on 03/19/19 09:03; Admin Dose 75 MG; Start 03/16/19 at 20:00 Al Hydrox/Mg Hydrox/Simethicone (Mag-Al Plus) 30 ml Q6H PRN PO GASTROINTESTINAL UPSET; Start 03/16/19 at 17:30 Silver Sulfadiazine (Thermazene 1% 25 Gm) 1 applic DAILY TOP Last administered on 03/19/19 09:05; Admin Dose 1 APPLIC; Start 03/17/19 at 09:00 Hydrocortisone (Hydrocortisone 0.5% Cr) 1 applic BID PRN [place] ITCHING Last administered on 03/17/19at 17:17; Admin Dose 1 APPLIC; Start 03/17/19 at 13:00 Multivitamins Therapeutic (Theragran) 1 tab DAILY PO Last administered on 03/19/19 09:03; Admin Dose 1 TAB; Start 03/17/19 at 12:30 Ascorbic Acid (Vitamin C) 500 mg DAILY PO Last administered on 03/19/19 09:04; Admin Dose 500 MG; Start 03/17/19 at 12:30 Benazepril HCl (Lotensin) 10 mg DAILY PO Last administered on 03/19/19 09:03; Admin Dose 10 MG; Start 03/19/19 at 09:00 Morphine Sulfate (morphine) 1 mg Q4H PRN IV SEVERE PAIN LEVEL 7-10; Start 03/18/19 at 21:00 Acetaminophen/ Hydrocodone Bitart ([place] (5/325)) 2 tab Q4H PRN PO MODERATE PAIN LEVEL 4-6; Start 03/18/19 at 19:00 Assessment/Plan Additional Assessment/Plan Rehab- Metabolic encephalopathy, status post thoracolumbar fusion for lumbar fracture with paraspinal hematoma Continued gains with rehab program Ankylosing spondylitis. Coronary artery disease. Hyperlipidemia. Severe osteoarthritis affecting multiple joints including right shoulder with decreased range of motion. Multiple skin abrasions. YEHUDA CRAMER MD Mar 19, 2019 15:01
[2019-03-19 20:09] VITALS: BP 125/63; PULSE 83; RESP 19
[2019-03-19] MEDS: SENNA TAB PO SCH (20:15)
[2019-03-19] MEDS: traZODone 50 MG TAB PO SCH (20:15)
[2019-03-20 02:00] VITALS: BP 134/62; PULSE 88; RESP 19
[2019-03-20 07:30] VITALS: BP 137/60; PULSE 79; RESP 20
[2019-03-20] MEDS: DOCUSATE SODIUM 100 MG CAP PO SCH ×2 (09:00→21:36)
[2019-03-20] MEDS ORDERED: ARTIFICIAL TEARS 15 ML OPH BOTH EYES PRN (09:30)
--- NOTE | 2019-03-20 10:33 | PN ---
Date/Time of Note Date/Time of Note DATE: 03/20/19 TIME: 10:32 Subjective Doing well Objective Vital Signs Date Temp Pulse Resp B/P (MAP) Pulse Ox O2 O2 Flow FiO2 Time Delivery Rate 03/20/19 2.0 07:54 03/20/19 98.8 79 20 137/60 97 Nasal 07:30 (85) Cannula Intake and Output 03/19/19 03/19/19 03/20/19 1515:00 23:00 07:00 IntakeIntake Total 250 ml 680 ml 750 ml OutputOutput Total 850 ml BalanceBalance 250 ml -170 ml 750 ml Exam pulm-cta mod ambulation 70 feet Results/Medications Result Diagram: 03/17/19 0607 03/17/19 0607 Medications Current Medications Miscellaneous Information (Pending [facility] Order For Wound Care) This patient mejia... PRN PRN XX WOUND CARE; Start 03/16/19 at 16:30 Senna (Senokot) 1 tab HS PO Last administered on 03/18/19at 21:17; Admin Dose 1 TAB; Start 03/16/19 at 21:00 Magnesium Hydroxide (Milk Of Mag) 30 ml BID PRN PO CONSTIPATION; Start 03/16/19 at 16:30 Lactulose (Enulose) 20 gm DAILY PRN PO CONSTIPATION; Start 03/16/19 at 16:30 Bisacodyl (Dulcolax Supp) 10 mg DAILY PRN [place] CONSTIPATION; Start 03/16/19 at 16:30 Docusate Sodium (Colace) 100 mg Q12 PO Last administered on 03/19/19at 09:03; Admin Dose 100 MG; Start 03/16/19 at 21:00 Acetaminophen (Tylenol Tab) 325 mg Q6H PRN PO MILD PAIN(1-3)OR ELEVATED TEMP; Start 03/16/19 at 17:00 Bisacodyl (Dulcolax) 5 mg DAILY PRN PO CONSTIPATION Last administered on 03/18/19at 08:53; Admin Dose 5 MG; Start 03/16/19 at 17:00 Acetaminophen/ Hydrocodone Bitart ([place] (5/325)) 1 tab Q6H PRN PO BREAKTHROUGH PAIN Last administered on 03/17/19at 02:30; Admin Dose 1 TAB; Start 03/16/19 at 17:00 Metoprolol Succinate (Toprol Xl) 50 mg DAILY PO Last administered on 03/19/19 09:04; Admin Dose 50 MG; Start 03/17/19 at 09:00 Nitroglycerin (Nitroglycerin (Sl Tab) 0.4 Mg) 1 tab Q5M PRN SL ANGINA; Start 03/16/19 at 17:00 Ondansetron HCl (Zofran Inj) 4 mg Q6H PRN IV NAUSEA AND/OR VOMITING Last administered on 03/17/19 09:19; Admin Dose 4 MG; Start 03/16/19 at 17:00 Trazodone HCl (Desyrel) 25 mg HS PO Last administered on 03/19/19 20:15; Admin Dose 25 MG; Start 03/16/19 at 21:00 Clopidogrel Bisulfate (plaVIX) 75 mg DAILY PO Last administered on 03/19/19 09:03; Admin Dose 75 MG; Start 03/16/19 at 20:00 Al Hydrox/Mg Hydrox/Simethicone (Mag-Al Plus) 30 ml Q6H PRN PO GASTROINTESTINAL UPSET; Start 03/16/19 at 17:30 Silver Sulfadiazine (Thermazene 1% 25 Gm) 1 applic DAILY TOP Last administered on 03/19/19at 09:05; Admin Dose 1 APPLIC; Start 03/17/19 at 09:00 Hydrocortisone (Hydrocortisone 0.5% Cr) 1 applic BID PRN TOP ITCHING Last administered on 03/17/19 17:17; Admin Dose 1 APPLIC; Start 03/17/19 at 13:00 Multivitamins Therapeutic (Theragran) 1 tab DAILY PO Last administered on 03/19/19 09:03; Admin Dose 1 TAB; Start 03/17/19 at 12:30 Ascorbic Acid (Vitamin C) 500 mg DAILY PO Last administered on 03/19/19 09:04; Admin Dose 500 MG; Start 03/17/19 at 12:30 Benazepril HCl (Lotensin) 10 mg DAILY PO Last administered on 03/19/19 09:03; Admin Dose 10 MG; Start 03/19/19 at 09:00 Morphine Sulfate (morphine) 1 mg Q4H PRN IV SEVERE PAIN LEVEL 7-10; Start 03/18/19 at 21:00 Acetaminophen/ Hydrocodone Bitart ([place] (5/325)) 2 tab Q4H PRN PO MODERATE PAIN LEVEL 4-6; Start 03/18/19 at 19:00 Eye Lubricant (Artificial Tears Oph) 2 drop Q6H PRN BOTH EYES DRY EYES; Start 03/20/19 at 09:30 Assessment/Plan Additional Assessment/Plan Rehab- Metabolic encephalopathy, status post thoracolumbar fusion for lumbar fracture with paraspinal hematoma Continue treatment plan Ankylosing spondylitis. Coronary artery disease. Hyperlipidemia. Severe osteoarthritis affecting multiple joints including right shoulder with decreased range of motion. Multiple skin abrasions. YEHUDA CRAMER MD Mar 20, 2019 10:33
[2019-03-20] MEDS: BENAZEPRIL 10 MG TAB PO SCH (11:27)
[2019-03-20] MEDS: MULTIVITAMINS THERAPEUTIC TAB PO SCH (11:27)
[2019-03-20] MEDS: METOPROLOL (XL) 50 MG TAB PO SCH (11:27)
[2019-03-20] MEDS: ASCORBIC ACID 500 MG TAB PO SCH (11:27)
[2019-03-20] MEDS: CLOPIDOGREL 75 MG TAB PO SCH (11:32)
[2019-03-20] MEDS: SILVER SULFADIAZINE 1% 25 GM CR TOP SCH (11:33)
--- NOTE | 2019-03-20 13:29 | PN ---
Date/Time of Note Date/Time of Note DATE: 03/20/19 TIME: 13:29 Objective Vitals Vital Signs Date Temp Pulse Resp B/P (MAP) Pulse Ox O2 O2 Flow FiO2 Time Delivery Rate 03/20/19 2.0 07:54 03/20/19 98.8 79 20 137/60 97 Nasal 07:30 (85) Cannula Intake and Output 03/19/19 03/19/19 03/20/19 1515:00 23:00 07:00 IntakeIntake Total 250 ml 680 ml 750 ml OutputOutput Total 850 ml BalanceBalance 250 ml -170 ml 750 ml Results Result Diagram: 03/17/19 0607 03/17/19 0607 Medications Medications Current Medications Miscellaneous Information (Pending [facility] Order For Wound Care) This patient mejia... PRN PRN XX WOUND CARE; Start 03/16/19 at 16:30 Senna (Senokot) 1 tab HS PO Last administered on 03/18/19at 21:17; Admin Dose 1 TAB; Start 03/16/19 at 21:00 Magnesium Hydroxide (Milk Of Mag) 30 ml BID PRN PO CONSTIPATION; Start 03/16/19 at 16:30 Lactulose (Enulose) 20 gm DAILY PRN PO CONSTIPATION; Start 03/16/19 at 16:30 Bisacodyl (Dulcolax Supp) 10 mg DAILY PRN [place] CONSTIPATION; Start 03/16/19 at 16:30 Docusate Sodium (Colace) 100 mg Q12 PO Last administered on 03/19/19at 09:03; Admin Dose 100 MG; Start 03/16/19 at 21:00 Acetaminophen (Tylenol Tab) 325 mg Q6H PRN PO MILD PAIN(1-3)OR ELEVATED TEMP; Start 03/16/19 at 17:00 Bisacodyl (Dulcolax) 5 mg DAILY PRN PO CONSTIPATION Last administered on 03/18at 08:53; Admin Dose 5 MG; Start 03/16/19 at 17:00 Acetaminophen/ Hydrocodone Bitart ([place] (5/325)) 1 tab Q6H PRN PO BREAKTHROUGH PAIN Last administered on 03/17/19at 02:30; Admin Dose 1 TAB; Start 03/16/19 at 17:00 Metoprolol Succinate (Toprol Xl) 50 mg DAILY PO Last administered on 03/20/19 11:27; Admin Dose 50 MG; Start 03/17/19 at 09:00 Nitroglycerin (Nitroglycerin (Sl Tab) 0.4 Mg) 1 tab Q5M PRN SL ANGINA; Start 03/16/19 at 17:00 Ondansetron HCl (Zofran Inj) 4 mg Q6H PRN IV NAUSEA AND/OR VOMITING Last administered on 03/17/19 09:19; Admin Dose 4 MG; Start 03/16/19 at 17:00 Trazodone HCl (Desyrel) 25 mg HS PO Last administered on 03/19/19 20:15; Admin Dose 25 MG; Start 03/16/19 at 21:00 Clopidogrel Bisulfate (plaVIX) 75 mg DAILY PO Last administered on 03/20/19 11:32; Admin Dose 75 MG; Start 03/16/19 at 20:00 Al Hydrox/Mg Hydrox/Simethicone (Mag-Al Plus) 30 ml Q6H PRN PO GASTROINTESTINAL UPSET; Start 03/16/19 at 17:30 Silver Sulfadiazine (Thermazene 1% 25 Gm) 1 applic DAILY TOP Last administered on 03/20/19 11:33; Admin Dose 1 APPLIC; Start 03/17/19 at 09:00 Hydrocortisone (Hydrocortisone 0.5% Cr) 1 applic BID PRN TOP ITCHING Last administered on 03/17/19 17:17; Admin Dose 1 APPLIC; Start 03/17/19 at 13:00 Multivitamins Therapeutic (Theragran) 1 tab DAILY PO Last administered on 03/20/19 11:27; Admin Dose 1 TAB; Start 03/17/19 at 12:30 Ascorbic Acid (Vitamin C) 500 mg DAILY PO Last administered on 03/20/19 11:27; Admin Dose 500 MG; Start 03/17/19 at 12:30 Benazepril HCl (Lotensin) 10 mg DAILY PO Last administered on 03/20/19 11:27; Admin Dose 10 MG; Start 03/19/19 at 09:00 Morphine Sulfate (morphine) 1 mg Q4H PRN IV SEVERE PAIN LEVEL 7-10; Start 03/18/19 at 21:00 Acetaminophen/ Hydrocodone Bitart ([place] (5/325)) 2 tab Q4H PRN PO MODERATE JOSE N LEVEL 4-6 Last administered on 03/20/19at 11:42; Admin Dose 2 TAB; Start 03/18/19 at 19:00 Eye Lubricant (Artificial Tears Oph) 2 drop Q6H PRN BOTH EYES DRY EYES; Start 03/20/19 at 09:30 VTE Prophylaxis [place] [facility]: 7 SCD applied [place] [facility] Yes Lines/Catheters IV Catheter Type: Abdi in Place: No Assessment/Plan Hospital Course Subjective No acute complaints, sleeping, participated with physical therapy well Objective Physical exam General: Patient is laying in bed and answers questions appropriately Mentation: Patient is alert and oriented 4, Head: Normocephalic atraumatic Eyes: EOMI, pupils reactive to light Neck: Supple, nontender, midline Respiratory: Clear to auscultation bilaterally Cardiovascular: regular rate, no obvious murmurs Gastrointestinal: non-tender to palpation, bowel sounds heard. Neurological: Moves all extremities spontaneously Skin: No new skin lesions ASSESSMENT AND PLAN: L2 chance fracture -s/p T12 to L4 posterolateral arthrodesis with allograft 03/11 -Followed by neurosurgery with plan for staple removal next wk -Wound care per NS instructions CAD/PCI w/stent -cont.antiplatelet (cleared from NS)/bb/ACEi Anemia,likely chronic -stable HTN -Continue beta-blockers/ NICHOLAS inhibitor DVT ppx:Ambulation Disposition -Continue with rehab DAKOTAH BISHOP Mar 20, 2019 13:29
[2019-03-20 14:00] VITALS: BP 134/63; PULSE 86; RESP 18
--- NOTE | 2019-03-20 14:44 | CONS ---
Consult Date/Type/Reason Admit Date/Time Mar 16, 2019 at 16:00 Initial Consult Date Requesting Provider: ALECIA SANTIAGO NP Date/Time of Note DATE: 03/20/19 TIME: 14:42 Subjective Pt doing well in rehab - beginning to ambulate - denies CP - some tachy with motion, likely with deconditioning. ROS: No fever, no chills, no nausea, no vomiting, no diarrhea/constipation No recent weight changes No chest pain, no PND, no orthopnea No dizziness, blurred vision No thirst, no heat or cold intolerance Objective Vitals Vital Signs Date Temp Pulse Resp B/P (MAP) Pulse Ox O2 O2 Flow FiO2 Time Delivery Rate 03/20/19 2.0 07:54 03/20/19 98.8 79 20 137/60 97 Nasal 07:30 (85) Cannula Intake and Output 03/19/19 03/19/19 03/20/19 1515:00 23:00 07:00 IntakeIntake Total 250 ml 680 ml 750 ml OutputOutput Total 850 ml BalanceBalance 250 ml -170 ml 750 ml Exam General: WN/WD/NAD, AOx 3 HEENT: Unicetric/atraumatic/EOMI (follow commands) NECK: JVD elevated, no thyromegaly Lymph: no lymphadenopathy HEART: regular with no S3, II/ systolic murmur at apex LUNGS: Coarse sounds ABD: soft, NT, ND, +BS : Intact Neuro: non focal - post op SKIN: chronic changes EXT: trace edema Results/Medications Result Diagram: 03/17/1960603/17/19 0607 Home Meds Reported Medications Tamsulosin Hcl* (Flomax*) 0.4 Mg Cap.er.24h, 0.4 MG PO NEEDED, CAP 03/09/19 Clopidogrel Bisulfate* (Clopidogrel Bisulfate*) 75 Mg Tablet, 75 MG PO DAILY, #30 TAB 03/09/19 Metoprolol Succinate* (Toprol XL*) 50 Mg Tab.er.24h, 50 MG PO DAILY, #30 TAB 03/09/19 Medications Current Medications Miscellaneous Information (Pending [facility] Order For Wound Care) This patient mejia... PRN PRN XX WOUND CARE; Start 03/16/19 at 16:30 Senna (Senokot) 1 tab HS PO Last administered on 03/18/19at 21:17; Admin Dose 1 TAB; Start 03/16/19 at 21:00 Magnesium Hydroxide (Milk Of Mag) 30 ml BID PRN PO CONSTIPATION; Start 03/16/19 at 16:30 Lactulose (Enulose) 20 gm DAILY PRN PO CONSTIPATION; Start 03/16/19 at 16:30 Bisacodyl (Dulcolax Supp) 10 mg DAILY PRN [place] CONSTIPATION; Start 03/16/19 at 16:30 Docusate Sodium (Colace) 100 mg Q12 PO Last administered on 03/19/19at 09:03; Admin Dose 100 MG; Start 03/16/19 at 21:00 Acetaminophen (Tylenol Tab) 325 mg Q6H PRN PO MILD PAIN(1-3)OR ELEVATED TEMP; Start 03/16/19 at 17:00 Bisacodyl (Dulcolax) 5 mg DAILY PRN PO CONSTIPATION Last administered on 03/18/19at 08:53; Admin Dose 5 MG; Start 03/16/19 at 17:00 Acetaminophen/ Hydrocodone Bitart ([place] (5/325)) 1 tab Q6H PRN PO BREAKTHROUGH PAIN Last administered on 03/17/19 02:30; Admin Dose 1 TAB; Start 03/16/19 at 17:00 Metoprolol Succinate (Toprol Xl) 50 mg DAILY PO Last administered on 03/20/19at 11:27; Admin Dose 50 MG; Start 03/17/19 at 09:00 Nitroglycerin (Nitroglycerin (Sl Tab) 0.4 Mg) 1 tab Q5M PRN SL ANGINA; Start 03/16/19 at 17:00 Ondansetron HCl (Zofran Inj) 4 mg Q6H PRN IV NAUSEA AND/OR VOMITING Last administered on 03/17/19 09:19; Admin Dose 4 MG; Start 03/16/19 at 17:00 Trazodone HCl (Desyrel) 25 mg HS PO Last administered on 03/19/19at 20:15; Admin Dose 25 MG; Start 03/16/19 at 21:00 Clopidogrel Bisulfate (plaVIX) 75 mg DAILY PO Last administered on 03/20/19at 11:32; Admin Dose 75 MG; Start 03/16/19 at 20:00 Al Hydrox/Mg Hydrox/Simethicone (Mag-Al Plus) 30 ml Q6H PRN PO GASTROINTESTINAL UPSET; Start 03/16/19 at 17:30 Silver Sulfadiazine (Thermazene 1% 25 Gm) 1 applic DAILY TOP Last administered on 03/20/19at 11:33; Admin Dose 1 APPLIC; Start 03/17/19 at 09:00 Hydrocortisone (Hydrocortisone 0.5% Cr) 1 applic BID PRN [place] ITCHING Last administered on 03/17/19at 17:17; Admin Dose 1 APPLIC; Start 03/17/19 at 13:00 Multivitamins Therapeutic (Theragran) 1 tab DAILY PO Last administered on 03/20/19 11:27; Admin Dose 1 TAB; Start 03/17/19 at 12:30 Ascorbic Acid (Vitamin C) 500 mg DAILY PO Last administered on 03/20/19 11:27; Admin Dose 500 MG; Start 03/17/19 at 12:30 Benazepril HCl (Lotensin) 10 mg DAILY PO Last administered on 03/20/19 11:27; Admin Dose 10 MG; Start 03/19/19 at 09:00 Morphine Sulfate (morphine) 1 mg Q4H PRN IV SEVERE PAIN LEVEL 7-10; Start 03/18/19 at 21:00 Acetaminophen/ Hydrocodone Bitart ([place] (5/325)) 2 tab Q4H PRN PO MODERATE PAIN LEVEL 4-6 Last administered on 03/20/19at 11:42; Admin Dose 2 TAB; Start 03/18/19 at 19:00 Eye Lubricant (Artificial Tears Oph) 2 drop Q6H PRN BOTH EYES DRY EYES; Start 03/20/19 at 09:30 Assessment/Plan Hospital Course (Demo Recall) 1. Preoperative evaluation prior to surgery for traumatic L2 fracture with associated hematoma.-Now post- s/p t12-L4 arthrodesis - con't paib Rx - rehab to follow. Doing well in rehab - beginning to ambulate. 2. No portal hypertension, but on a beta carlos at baseline. BP stable now. Rate controlled. 3. History of percutaneous transluminal coronary angioplasty and stent placement, most recently 2014.-NL EF by echo and no sig valve abnl - no CP, no intervention planned. 4. 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 NO CP now. 5. Possible dyslipidemia by medications although the patient denies. 6. Traumatic L2 fracture. 7. History of lymphedema per patient, currently resolved. 8. Ankylosing spondylitis by CT. 9. Severe osteoarthritis- con't rehab. 10. chest pain-of onset today described as chest tightness - resolved. ANURADHA SEGURA MD Mar 20, 2019 14:44
[2019-03-20 19:47] VITALS: BP 140/67; PULSE 84; RESP 18
[2019-03-20] MEDS: traZODone 50 MG TAB PO SCH (21:36)
[2019-03-20] MEDS: SENNA TAB PO SCH (21:36)
[2019-03-21 02:00] VITALS: BP 132/62; PULSE 87; RESP 18
[2019-03-21 07:00] VITALS: BP 129/62; PULSE 84; RESP 18
[2019-03-21] MEDS: CLOPIDOGREL 75 MG TAB PO SCH (09:23)
[2019-03-21] MEDS: BENAZEPRIL 10 MG TAB PO SCH (09:23)
[2019-03-21] MEDS: DOCUSATE SODIUM 100 MG CAP PO SCH ×2 (09:23→20:36)
[2019-03-21] MEDS: METOPROLOL (XL) 50 MG TAB PO SCH (09:24)
[2019-03-21] MEDS: ASCORBIC ACID 500 MG TAB PO SCH (09:24)
[2019-03-21] MEDS: MULTIVITAMINS THERAPEUTIC TAB PO SCH (09:24)
[2019-03-21] MEDS: SILVER SULFADIAZINE 1% 25 GM CR TOP SCH (09:28)
--- NOTE | 2019-03-21 12:38 | PN ---
Date/Time of Note Date/Time of Note DATE: 03/21/19 TIME: 12:38 Objective Vitals Vital Signs Date Temp Pulse Resp B/P (MAP) Pulse Ox O2 O2 Flow FiO2 Time Delivery Rate 03/21/19 2.0 08:39 03/21/19 Nasal 08:00 Cannula 03/21/19 97.9 84 18 129/62 96 07:00 (84) Intake and Output 03/20/19 03/20/19 03/21/19 1515:00 23:00 07:00 IntakeIntake Total 740 ml 700 ml OutputOutput Total 300 ml 500 ml BalanceBalance 440 ml 200 ml Results Result Diagram: 03/17/19 0607 03/17/19 0607 Medications Medications Current Medications Miscellaneous Information (Pending [facility] Order For Wound Care) This patient mejia... PRN PRN XX WOUND CARE; Start 03/16/19 at 16:30 Senna (Senokot) 1 tab HS PO Last administered on 03/20/19at 21:36; Admin Dose 1 TAB; Start 03/16/19 at 21:00 Magnesium Hydroxide (Milk Of Mag) 30 ml BID PRN PO CONSTIPATION; Start 03/16/19 at 16:30 Lactulose (Enulose) 20 gm DAILY PRN PO CONSTIPATION; Start 03/16/19 at 16:30 Bisacodyl (Dulcolax Supp) 10 mg DAILY PRN [place] CONSTIPATION; Start 03/16/19 at 16:30 Docusate Sodium (Colace) 100 mg Q12 PO Last administered on 03/21/19at 09:23; Admin Dose 100 MG; Start 03/16/19 at 21:00 Acetaminophen (Tylenol Tab) 325 mg Q6H PRN PO MILD PAIN(1-3)OR ELEVATED TEMP; Start 03/16/19 at 17:00 Bisacodyl (Dulcolax) 5 mg DAILY PRN PO CONSTIPATION Last administered on 03/18/19at 08:53; Admin Dose 5 MG; Start 03/16/19 at 17:00 Acetaminophen/ Hydrocodone Bitart ([place] (5/325)) 1 tab Q6H PRN PO BREAKTHROUGH PAIN Last administered on 03/17/19at 02:30; Admin Dose 1 TAB; Start 03/16/19 at 17:00 Metoprolol Succinate (Toprol Xl) 50 mg DAILY PO Last administered on 03/21/19 09:24; Admin Dose 50 MG; Start 03/17/19 at 09:00 Nitroglycerin (Nitroglycerin (Sl Tab) 0.4 Mg) 1 tab Q5M PRN SL ANGINA; Start 03/16/19 at 17:00 Ondansetron HCl (Zofran Inj) 4 mg Q6H PRN IV NAUSEA AND/OR VOMITING Last administered on 03/17/19 09:19; Admin Dose 4 MG; Start 03/16/19 at 17:00 Trazodone HCl (Desyrel) 25 mg HS PO Last administered on 03/20/19 21:36; Admin Dose 25 MG; Start 03/16/19 at 21:00 Clopidogrel Bisulfate (plaVIX) 75 mg DAILY PO Last administered on 03/21/19 09:23; Admin Dose 75 MG; Start 03/16/19 at 20:00 Al Hydrox/Mg Hydrox/Simethicone (Mag-Al Plus) 30 ml Q6H PRN PO GASTROINTESTINAL UPSET; Start 03/16/19 at 17:30 Silver Sulfadiazine (Thermazene 1% 25 Gm) 1 applic DAILY TOP Last administered on 03/21/19 09:28; Admin Dose 1 APPLIC; Start 03/17/19 at 09:00 Hydrocortisone (Hydrocortisone 0.5% Cr) 1 applic BID PRN [place] ITCHING Last administered on 03/17/19 17:17; Admin Dose 1 APPLIC; Start 03/17/19 at 13:00 Multivitamins Therapeutic (Theragran) 1 tab DAILY PO Last administered on 03/21/19 09:24; Admin Dose 1 TAB; Start 03/17/19 at 12:30 Ascorbic Acid (Vitamin C) 500 mg DAILY PO Last administered on 03/21/19 09:24; Admin Dose 500 MG; Start 03/17/19 at 12:30 Benazepril HCl (Lotensin) 10 mg DAILY PO Last administered on 03/21/19 09:23; Admin Dose 10 MG; Start 03/19/19 at 09:00 Morphine Sulfate (morphine) 1 mg Q4H PRN IV SEVERE PAIN LEVEL 7-10; Start 03/18/19 at 21:00 Acetaminophen/ Hydrocodone Bitart ([place] (5/325)) 2 tab Q4H PRN PO MODERATE PAIN LEVEL 4-6 Last administered on 03/20/19at 11:42; Admin Dose 2 TAB; Start 03/18/19 at 19:00 Eye Lubricant (Artificial Tears Oph) 2 drop Q6H PRN BOTH EYES DRY EYES; Start 03/20/19 at 09:30 VTE Prophylaxis Risk score (from [facility])>0 risk: 6 SCD applied (from [facility]): Yes Lines/Catheters IV Catheter Type: Abdi in Place: No Assessment/Plan Hospital Course Subjective No acute complaints, sleeping, participated with physical therapy well Objective Physical exam General: Patient is laying in bed and answers questions appropriately Mentation: Patient is alert and oriented 4, Head: Normocephalic atraumatic Eyes: EOMI, pupils reactive to light Neck: Supple, nontender, midline Respiratory: Clear to auscultation bilaterally Cardiovascular: regular rate, no obvious murmurs Gastrointestinal: non-tender to palpation, bowel sounds heard. Neurological: Moves all extremities spontaneously Skin: No new skin lesions ASSESSMENT AND PLAN: L2 chance fracture -s/p T12 to L4 posterolateral arthrodesis with allograft 03/11 -Followed by neurosurgery with plan for staple removal next wk -Wound care per NS instructions CAD/PCI w/stent -cont.antiplatelet (cleared from NS)/bb/ACEi Anemia,likely chronic -stable HTN -Continue beta-blockers/ NICHOLAS inhibitor DVT ppx:Ambulation Disposition -Continue with rehab DAKOTAH BISHOP Mar 21, 2019 12:38
[2019-03-21 14:00] VITALS: BP 119/60; PULSE 77; RESP 18
--- NOTE | 2019-03-21 15:20 | CONS ---
Consult Date/Type/Reason Admit Date/Time Mar 16, 2019 at 16:00 Initial Consult Date Requesting Provider: ALECIA SANTIAGO NP Date/Time of Note DATE: 03/21/19 TIME: 15:19 Subjective No acute events - pt doing well - con't rehab - family at bedside - happy with care. ROS: No fever, no chills, no nausea, no vomiting, no diarrhea/constipation No recent weight changes No chest pain, no PND, no orthopnea No dizziness, blurred vision No thirst, no heat or cold intolerance Objective Vitals Vital Signs Date Temp Pulse Resp B/P (MAP) Pulse Ox O2 O2 Flow FiO2 Time Delivery Rate 03/21/19 2.0 08:39 03/21/19 Nasal 08:00 Cannula 03/21/19 97.9 84 18 129/62 96 07:00 (84) Intake and Output 03/20/19 03/20/19 03/21/19 1515:00 23:00 07:00 IntakeIntake Total 740 ml 700 ml OutputOutput Total 300 ml 500 ml BalanceBalance 440 ml 200 ml Exam General: WN/WD/NAD, AOx 3 HEENT: Unicetric/atraumatic/EOMI (follow commands) NECK: JVD elevated, no thyromegaly Lymph: no lymphadenopathy HEART: regular with no S3, II/ systolic murmur at apex LUNGS: Coarse sounds ABD: soft, NT, ND, +BS : Intact Neuro: non focal SKIN: chronic changes EXT: trace edema Results/Medications Result Diagram: 03/17/19 0607 03/17/19 0607 Home Meds Reported Medications Tamsulosin Hcl* (Flomax*) 0.4 Mg Cap.er.24h, 0.4 MG PO NEEDED, CAP 03/09/19 Clopidogrel Bisulfate* (Clopidogrel Bisulfate*) 75 Mg Tablet, 75 MG PO DAILY, #30 TAB 03/09/19 Metoprolol Succinate* (Toprol XL*) 50 Mg Tab.er.24h, 50 MG PO DAILY, #30 TAB 03/09/19 Medications Current Medications Miscellaneous [facility] This patient mejia ... PRN PRN XX WOUND CARE; Start 03/16/19 at 16:30 Senna (Senokot) 1 tab HS PO Last administered on 03/20/19 21:36; Admin Dose 1 TAB; Start 03/16/19 at 21:00 Magnesium Hydroxide (Milk Of Mag) 30 ml BID PRN PO CONSTIPATION; Start 03/16/19 at 16:30 Lactulose (Enulose) 20 gm DAILY PRN PO CONSTIPATION; Start 03/16/19 at 16:30 Bisacodyl (Dulcolax Supp) 10 mg DAILY PRN [place] CONSTIPATION; Start 03/16/19 at 16:30 Docusate Sodium (Colace) 100 mg Q12 PO Last administered on 03/21/19 09:23; Admin Dose 100 MG; Start 03/16/19 at 21:00 Acetaminophen (Tylenol Tab) 325 mg Q6H PRN PO MILD PAIN(1-3)OR ELEVATED TEMP; Start 03/16/19 at 17:00 Bisacodyl (Dulcolax) 5 mg DAILY PRN PO CONSTIPATION Last administered on 03/18/19at 08:53; Admin Dose 5 MG; Start 03/16/19 at 17:00 Acetaminophen/ Hydrocodone Bitart ([place] (5/325)) 1 tab Q6H PRN PO BREAKTHROUGH PAIN Last administered on 03/17/19 02:30; Admin Dose 1 TAB; Start 03/16/19 at 17:00 Metoprolol Succinate (Toprol Xl) 50 mg DAILY PO Last administered on 03/21/19 09:24; Admin Dose 50 MG; Start 03/17/19 at 09:00 Nitroglycerin (Nitroglycerin (Sl Tab) 0.4 Mg) 1 tab Q5M PRN SL ANGINA; Start 03/16/19 at 17:00 Ondansetron HCl (Zofran Inj) 4 mg Q6H PRN IV NAUSEA AND/OR VOMITING Last administered on 03/17/19 09:19; Admin Dose 4 MG; Start 03/16/19 at 17:00 Trazodone HCl (Desyrel) 25 mg HS PO Last administered on 03/20/19 21:36; Admin Dose 25 MG; Start 03/16/19 at 21:00 Clopidogrel Bisulfate (plaVIX) 75 mg DAILY PO Last administered on 03/21/19 09:23; Admin Dose 75 MG; Start 03/16/19 at 20:00 Al Hydrox/Mg Hydrox/Simethicone (Mag-Al Plus) 30 ml Q6H PRN PO GASTROINTESTINAL UPSET; Start 03/16/19 at 17:30 Silver Sulfadiazine (Thermazene 1% 25 Gm) 1 applic DAILY TOP Last administered on 03/21/19at 09:28; Admin Dose 1 APPLIC; Start 03/17/19 at 09:00 Hydrocortisone (Hydrocortisone 0.5% Cr) 1 applic BID PRN [place] ITCHING Last administered on 03/17/19at 17:17; Admin Dose 1 APPLIC; Start 03/17/19 at 13:00 Multivitamins Therapeutic (Theragran) 1 tab DAILY PO Last administered on 03/21/19at 09:24; Admin Dose 1 TAB; Start 03/17/19 at 12:30 Ascorbic Acid (Vitamin C) 500 mg DAILY PO Last administered on 03/21/19 09:24; Admin Dose 500 MG; Start 03/17/19 at 12:30 Benazepril HCl (Lotensin) 10 mg DAILY PO Last administered on 03/21/19at 09:23; Admin Dose 10 MG; Start 03/19/19 at 09:00 Morphine Sulfate (morphine) 1 mg Q4H PRN IV SEVERE PAIN LEVEL 7-10; Start 03/18/19 at 21:00 Acetaminophen/ Hydrocodone Bitart ([place] (5/325)) 2 tab Q4H PRN PO MODERATE PAIN LEVEL 4-6 Last administered on 03/20/19at 11:42; Admin Dose 2 TAB; Start 03/18/19 at 19:00 Eye Lubricant (Artificial Tears Oph) 2 drop Q6H PRN BOTH EYES DRY EYES; Start 03/20/19 at 09:30 Assessment/Plan Hospital Course (Demo Recall) 1. Preoperative evaluation prior to surgery for traumatic L2 fracture with associated hematoma.-Now post- s/p t12-L4 arthrodesis - con't paib Rx - rehab to follow. Doing well in rehab - beginning to ambulate. Con't recovery - tolerating increased work load. 2. No portal hypertension, but on a beta carlos at baseline. BP stable now. Rate controlled. On meds. 3. History of percutaneous transluminal coronary angioplasty and stent placement, most recently 2014.-NL EF by echo and no sig valve abnl - no CP, no i ntervention planned. 4. 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 NO CP now. 5. Possible dyslipidemia by medications although the patient denies. 6. Traumatic L2 fracture. 7. History of lymphedema per patient, currently resolved. None now. 8. Ankylosing spondylitis by CT. 9. Severe osteoarthritis- con't rehab. 10. chest pain- described as chest tightness - resolved. Doubt ACS ANURADHA SEGURA MD Mar 21, 2019 15:20
[2019-03-21] MEDS: HYDROCORTISONE 0.5% 28.35 GM CR TOP PRN (16:30)
[2019-03-21 20:00] VITALS: BP 115/54; PULSE 75; RESP 18
[2019-03-21] MEDS: traZODone 50 MG TAB PO SCH (20:37)
[2019-03-21] MEDS: SENNA TAB PO SCH (20:37)
[2019-03-22] MEDS ORDERED: ZOLPIDEM 5 MG TAB PO ONE
[2019-03-22 02:35] VITALS: BP 134/64; PULSE 85; RESP 18
[2019-03-22 07:30] VITALS: BP 137/63; PULSE 80; RESP 18
[2019-03-22] MEDS: MULTIVITAMINS THERAPEUTIC TAB PO SCH (08:55)
[2019-03-22] MEDS: ASCORBIC ACID 500 MG TAB PO SCH (08:55)
[2019-03-22] MEDS: BENAZEPRIL 10 MG TAB PO SCH (08:56)
[2019-03-22] MEDS: DOCUSATE SODIUM 100 MG CAP PO SCH ×2 (08:56→21:00)
[2019-03-22] MEDS: CLOPIDOGREL 75 MG TAB PO SCH (08:56)
[2019-03-22] MEDS: METOPROLOL (XL) 50 MG TAB PO SCH (08:56)
[2019-03-22] MEDS: SILVER SULFADIAZINE 1% 25 GM CR TOP SCH (08:59)
--- NOTE | 2019-03-22 13:53 | CONS ---
Assessment/Plan Assessment/Plan Hospital Course (Demo Recall) IMPRESSION: 1. Preoperative evaluation prior to surgery for traumatic L2 fracture with associated hematoma.-Now post- s/p t12-L4 arthrodesis 2. HTN-well controlled on current medications 3. History of percutaneous transluminal coronary angioplasty and stent placement, most recently 2014.-NL EF by echo and no sig valve abnl 4. 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 5. Possible dyslipidemia by medications although the patient denies. 6. Traumatic L2 fracture. 7. History of lymphedema per patient, currently resolved. 8. Ankylosing spondylitis by CT. 9. Severe osteoarthritis. 10. chest pain-resolved/negative trop's Recc: -Now in rehab with PT as patient will comply as per nurse has been refusing -Now on back on plavix -Continue BB -pain control -Continue abx prophyaxis -local wound care -serial ecg's -PRN SL NTG Consultation Date/Type/Reason Admit Date/Time Mar 16, 2019 at 16:00 Initial Consult Date 03/16/19 Type of Consult Cardiology Reason for Consultation HTN Requesting Provider: ALECIA SANTIAGO NP Date/Time of Note DATE: 03/22/19 TIME: 13:52 Exam/Review of Systems Vital Signs Vitals Vital Signs Date Temp Pulse Resp B/P (MAP) Pulse Ox O2 O2 Flow FiO2 Time Delivery Rate 03/22/19 97.8 80 18 137/63 95 Room Air 07:30 (87) 03/21/19 21 21:16 03/21/19 2.0 19:45 Intake and Output 03/21/19 03/21/19 03/22/19 1515:00 23:00 07:00 IntakeIntake Total 1600 ml OutputOutput Total 800 ml 600 ml BalanceBalance 800 ml -600 ml Exam Exam Review of Systems: CONSTITUTIONAL: No fevers, chills. PULMONARY: No sob CARDIOVASCULAR: No chest pain/palpitations GASTROINTESTINAL: No nausea/vomiting. GENITOURINARY: No hematuria/dysuria. MUSCULOSKELETAL: back pain PSYCHIATRIC: The patient denies depression. NEUROLOGIC: No weakness Constitutional: alert Psych: no complaints Head: normocephalic ENMT: mucosa pink and moist Neck: supple, jvd (9 cm water) Respiratory: clear to auscultation Cardiovascular: regular rate and rhythm Gastrointestinal: soft, non-tender Musculoskeletal: muscle tone (normal) Extremities: edema (none) Neurological: other (No focal deficits) Medications Medications Current Medications Miscellaneous Information ([facility] This patient mejia ... PRN PRN XX WOUND CARE; Start 03/16/19 at 16:30 Senna (Senokot) 1 tab HS PO Last administered on 03/21/19at 20:37; Admin Dose 1 TAB; Start 03/16/19 at 21:00 Magnesium Hydroxide (Milk Of Mag) 30 ml BID PRN PO CONSTIPATION; Start 03/16/19 at 16:30 Lactulose (Enulose) 20 gm DAILY PRN PO CONSTIPATION; Start 03/16/19 at 16:30 Bisacodyl (Dulcolax Supp) 10 mg DAILY PRN [place] CONSTIPATION; Start 03/16/19 at 16:30 Docusate Sodium (Colace) 100 mg Q12 PO Last administered on 03/21/19at 20:36; Admin Dose 100 MG; Start 03/16/19 at 21:00 Acetaminophen (Tylenol Tab) 325 mg Q6H PRN PO MILD PAIN(1-3)OR ELEVATED TEMP; Start 03/16/19 at 17:00 Bisacodyl (Dulcolax) 5 mg DAILY PRN PO CONSTIPATION Last administered on 03/18/19at 08:53; Admin Dose 5 MG; Start 03/16/19 at 17:00 Acetaminophen/ Hydrocodone Bitart ([place] (5/325)) 1 tab Q6H PRN PO BREAKTHROUGH PAIN Last administered on 03/17/19at 02:30; Admin Dose 1 TAB; Start 03/16/19 at 17:00 Metoprolol Succinate (Toprol Xl) 50 mg DAILY PO Last administered on 03/22/19 08:56; Admin Dose 50 MG; Start 03/17/19 at 09:00 Nitroglycerin (Nitroglycerin (Sl Tab) 0.4 Mg) 1 tab Q5M PRN SL ANGINA; Start 03/16/19 at 17:00 Ondansetron HCl (Zofran Inj) 4 mg Q6H PRN IV NAUSEA AND/OR VOMITING Last administered on 03/17/19at 09:19; Admin Dose 4 MG; Start 03/16/19 at 17:00 Trazodone HCl (Desyrel) 25 mg HS PO Last administered on 03/21/19 20:37; Admin Dose 25 MG; Start 03/16/19 at 21:00 Clopidogrel Bisulfate (plaVIX) 75 mg DAILY PO Last administered on 03/22/19 08:56; Admin Dose 75 MG; Start 03/16/19 at 20:00 Al Hydrox/Mg Hydrox/Simethicone (Mag-Al Plus) 30 ml Q6H PRN PO GASTROINTESTINAL UPSET; Start 03/16/19 at 17:30 Silver Sulfadiazine (Thermazene 1% 25 Gm) 1 applic DAILY TOP Last administered on 03/22/19 08:59; Admin Dose 1 APPLIC; Start 03/17/19 at 09:00 Hydrocortisone (Hydrocortisone 0.5% Cr) 1 applic BID PRN TOP ITCHING Last administered on 03/21/19 16:30; Admin Dose 1 APPLIC; Start 03/17/19 at 13:00 Multivitamins Therapeutic (Theragran) 1 tab DAILY PO Last administered on 03/22/19 08:55; Admin Dose 1 TAB; Start 03/17/19 at 12:30 Ascorbic Acid (Vitamin C) 500 mg DAILY PO Last administered on 03/22/19 08:55; Admin Dose 500 MG; Start 03/17/19 at 12:30 Benazepril HCl (Lotensin) 10 mg DAILY PO Last administered on 03/22/19 08:56; Admin Dose 10 MG; Start 03/19/19 at 09:00 Morphine Sulfate (morphine) 1 mg Q4H PRN IV SEVERE PAIN LEVEL 7-10; Start 03/18/19 at 21:00 Acetaminophen/ Hydrocodone Bitart ([place] (5/325)) 2 tab Q4H PRN PO MODERATE PAIN LEVEL 4-6 Last administered on 03/20/19 11:42; Admin Dose 2 TAB; Start 03/18/19 at 19:00 Eye Lubricant (Artificial Tears Oph) 2 drop Q6H PRN BOTH EYES DRY EYES; Start 03/20/19 at 09:30 MICKEY SOLITARIO Mar 22, 2019 13:53
[2019-03-22 14:00] VITALS: BP 141/63; PULSE 79; RESP 18
--- NOTE | 2019-03-22 14:42 | PN ---
Date/Time of Note Date/Time of Note DATE: 03/22/19 TIME: 14:40 Assessment/Plan VTE Prophylaxis Risk score (from Ns)>0 risk: 6 SCD applied (from Ns): Yes Pharmacological prophylaxis: NA/contraindicated Pharm contraindication: low risk/ambulating Lines/Catheters IV [facility] Type [facility]from [facility] Urinary Cath still in place: No Assessment/Plan Hospital Course SUBJECTIVE: No acute overnight episodes. OBJECTIVE: Vital signs-see below PHYSICAL EXAM: Constitutional: Elderly male,not in acute distress. HEENT: Head atraumatic and normocephalic. Eyes: Extraocular muscles intact. Anicteric sclerae. Pupils equal bilaterally, reactive to light. NECK: Supple without lymph node. CHEST: Clear and good breath sounds equally. No wheezing. No rhonchi. HEART: S1, S2. Regular rate and rhythm. ABDOMEN: Soft/non tender with no rebound tenderness. Bowel sounds were present. EXTREMITIES: Dressing LLE c/d/i. Lower back surgical site intact w/[place]. No cyanosis, clubbing or edema. NEUROLOGIC: Alert and oriented x3. No focal deficit. No sensory deficit. PSYCHOSOCIAL: No signs of depression. INTEGUMENTARY: No open wounds. ASSESSMENT AND PLAN: L2 chance fracture -s/p T12 to L4 posterolateral arthrodesis with allograft 03/11 -Followed by neurosurgery with plan for staple removal likely this wk -Wound care per NS instructions CAD/PCI w/stent -cont.antiplatelet (cleared from NS)/bb/ACEi Anemia,likely chronic -stable HTN -Continue beta-blockers/ NICHOLAS inhibitor DVT ppx:Ambulation Patient was seen in collaboration with DR. Mejia. Exam/Review of Systems Exam Vitals Vital Signs Date Temp Pulse Resp B/P (MAP) Pulse Ox O2 O2 Flow FiO2 Time Delivery Rate 03/22/19 97.8 80 18 137/63 95 Room Air 07:30 (87) 03/21/19 21 21:16 03/21/19 2.0 19:45 Intake and Output 03/21/19 03/21/19 03/22/19 1515:00 23:00 07:00 IntakeIntake Total 1600 ml OutputOutput Total 800 ml 600 ml BalanceBalance 800 ml -600 ml Medications Medication Current Medications Miscellaneous Information (Pending [facility] Order For [facility]ound Care) This patient mejia... PRN PRN XX WOUND CARE; Start 03/16/19 at 16:30 Senna (Senokot) 1 tab HS PO Last administered on 03/21/19 20:37; Admin Dose 1 TAB; Start 03/16/19 at 21:00 Magnesium Hydroxide (Milk Of Mag) 30 ml BID PRN PO CONSTIPATION; Start 03/16/19 at 16:30 Lactulose (Enulose) 20 gm DAILY PRN PO CONSTIPATION; Start 03/16/19 at 16:30 Bisacodyl (Dulcolax Supp) 10 mg DAILY PRN [place] CONSTIPATION; Start 03/16/19 at 16:30 Docusate Sodium (Colace) 100 mg Q12 PO Last administered on 03/21/19 20:36; Admin Dose 100 MG; Start 03/16/19 at 21:00 Acetaminophen (Tylenol Tab) 325 mg Q6H PRN PO MILD PAIN(1-3)OR ELEVATED TEMP; Start 03/16/19 at 17:00 Bisacodyl (Dulcolax) 5 mg DAILY PRN PO CONSTIPATION Last administered on 03/18/19 08:53; Admin Dose 5 MG; Start 03/16/19 at 17:00 Acetaminophen/ Hydrocodone Bitart ([place] (5/325)) 1 tab Q6H PRN PO BREAKTHROUGH PAIN Last administered on 03/17/19 02:30; Admin Dose 1 TAB; Start 03/16/19 at 17:00 Metoprolol Succinate (Toprol Xl) 50 mg DAILY PO Last administered on 03/22/19 08:56; Admin Dose 50 MG; Start 03/17/19 at 09:00 Nitroglycerin (Nitroglycerin (Sl Tab) 0.4 Mg) 1 tab Q5M PRN SL ANGINA; Start 03/16/19 at 17:00 Ondansetron HCl (Zofran Inj) 4 mg Q6H PRN IV NAUSEA AND/OR VOMITING Last administered on 03/17/19 09:19; Admin Dose 4 MG; Start 03/16/19 at 17:00 Trazodone HCl (Desyrel) 25 mg HS PO Last administered on 03/21/19 20:37; Admin Dose 25 MG; Start 03/16/19 at 21:00 Clopidogrel Bisulfate (plaVIX) 75 mg DAILY PO Last administered on 03/22/19 08:56; Admin Dose 75 MG; Start 03/16/19 at 20:00 Al Hydrox/Mg Hydrox/Simethicone (Mag-Al Plus) 30 ml Q6H PRN PO GASTROINTESTINAL UPSET; Start 03/16/19 at 17:30 Silver Sulfadiazine (Thermazene 1% 25 Gm) 1 applic DAILY TOP Last administered on 03/22/19 08:59; Admin Dose 1 APPLIC; Start 03/17/19 at 09:00 Hydrocortisone (Hydrocortisone 0.5% Cr) 1 applic BID PRN TOP ITCHING Last administered on 03/21/19 16:30; Admin Dose 1 APPLIC; Start 03/17/19 at 13:00 Multivitamins Therapeutic (Theragran) 1 tab DAILY PO Last administered on 03/22/19 08:55; Admin Dose 1 TAB; Start 03/17/19 at 12:30 Ascorbic Acid (Vitamin C) 500 mg DAILY PO Last administered on 03/22/19 08:55; Admin Dose 500 MG; Start 03/17/19 at 12:30 Benazepril HCl (Lotensin) 10 mg DAILY PO Last administered on 03/22/19 08:56; Admin Dose 10 MG; Start 03/19/19 at 09:00 Morphine Sulfate (morphine) 1 mg Q4H PRN IV SEVERE PAIN LEVEL 7-10; Start 03/18/19 at 21:00 Acetaminophen/ Hydrocodone Bitart ([place] (5/325)) 2 tab Q4H PRN PO MODERATE PAIN LEVEL 4-6 Last administered on 03/20/19 11:42; Admin Dose 2 TAB; Start 03/18/19 at 19:00 Eye Lubricant (Artificial Tears Oph) 2 drop Q6H PRN BOTH EYES DRY EYES; Start 03/20/19 at 09:30 ALECIA SANTIAGO NP Mar 22, 2019 14:42
--- NOTE | 2019-03-22 14:44 | PN ---
Date/Time of Note Date/Time of Note DATE: 03/22/19 TIME: 14:40 Subjective Family conference with patient and therapies Objective Vital Signs Date Temp Pulse Resp B/P (MAP) Pulse Ox O2 O2 Flow FiO2 Time Delivery Rate 03/22/19 97.8 80 18 137/63 95 Room Air 07:30 (87) 03/21/19 21 21:16 03/21/19 2.0 19:45 Intake and Output 03/21/19 03/21/19 03/22/19 1515:00 23:00 07:00 IntakeIntake Total 1600 ml OutputOutput Total 800 ml 600 ml BalanceBalance 800 ml -600 ml Exam pulm-cta abd-soft min transfer and ambulation 150 feet Results/Medications Medications Current Medications Miscellaneous Information (Pending [facility] Order For Wound Care) This patient mejia... PRN PRN XX WOUND CARE; Start 03/16/19 at 16:30 Senna (Senokot) 1 tab HS PO Last administered on 03/21/19at 20:37; Admin Dose 1 TAB; Start 03/16/19 at 21:00 Magnesium Hydroxide (Milk Of Mag) 30 ml BID PRN PO CONSTIPATION; Start 03/16/19 at 16:30 Lactulose (Enulose) 20 gm DAILY PRN PO CONSTIPATION; Start 03/16/19 at 16:30 Bisacodyl (Dulcolax Supp) 10 mg DAILY PRN [place] CONSTIPATION; Start 03/16/19 at 16:30 Docusate Sodium (Colace) 100 mg Q12 PO Last administered on 03/21/19at 20:36; Admin Dose 100 MG; Start 03/16/19 at 21:00 Acetaminophen (Tylenol Tab) 325 mg Q6H PRN PO MILD PAIN(1-3)OR ELEVATED TEMP; Start 03/16/19 at 17:00 Bisacodyl (Dulcolax) 5 mg DAILY PRN PO CONSTIPATION Last administered on 03/18/19at 08:53; Admin Dose 5 MG; Start 03/16/19 at 17:00 Acetaminophen/ Hydrocodone Bitart ([place] (5/325)) 1 tab Q6H PRN PO BREAKTHROUGH PAIN Last administered on 03/17/19at 02:30; Admin Dose 1 TAB; Start 03/16/19 at 17:00 Metoprolol Succinate (Toprol Xl) 50 mg DAILY PO Last administered on 03/22/19 08:56; Admin Dose 50 MG; Start 03/17/19 at 09:00 Nitroglycerin (Nitroglycerin (Sl Tab) 0.4 Mg) 1 tab Q5M PRN SL ANGINA; Start 03/16/19 at 17:00 Ondansetron HCl (Zofran Inj) 4 mg Q6H PRN IV NAUSEA AND/OR VOMITING Last administered on 03/17/19 09:19; Admin Dose 4 MG; Start 03/16/19 at 17:00 Trazodone HCl (Desyrel) 25 mg HS PO Last administered on 03/21/19 20:37; Admin Dose 25 MG; Start 03/16/19 at 21:00 Clopidogrel Bisulfate (plaVIX) 75 mg DAILY PO Last administered on 03/22/19 08:56; Admin Dose 75 MG; Start 03/16/19 at 20:00 Al Hydrox/Mg Hydrox/Simethicone (Mag-Al Plus) 30 ml Q6H PRN PO GASTROINTESTINAL UPSET; Start 03/16/19 at 17:30 Silver Sulfadiazine (Thermazene 1% 25 Gm) 1 applic DAILY TOP Last administered on 03/22/19 08:59; Admin Dose 1 APPLIC; Start 03/17/19 at 09:00 Hydrocortisone (Hydrocortisone 0.5% Cr) 1 applic BID PRN TOP ITCHING Last administered on 03/21/19 16:30; Admin Dose 1 APPLIC; Start 03/17/19 at 13:00 Multivitamins Therapeutic (Theragran) 1 tab DAILY PO Last administered on 03/22/19 08:55; Admin Dose 1 TAB; Start 03/17/19 at 12:30 Ascorbic Acid (Vitamin C) 500 mg DAILY PO Last administered on 03/22/19 08:55; Admin Dose 500 MG; Start 03/17/19 at 12:30 Benazepril HCl (Lotensin) 10 mg DAILY PO Last administered on 03/22/19 08:56; Admin Dose 10 MG; Start 03/19/19 at 09:00 Morphine Sulfate (morphine) 1 mg Q4H PRN IV SEVERE PAIN LEVEL 7-10; Start 03/18/19 at 21:00 Acetaminophen/ Hydrocodone Bitart ([place] (5/325)) 2 tab Q4H PRN PO MODERATE PAIN LEVEL 4-6 Last administered on 03/20/19at 11:42; Admin Dose 2 TAB; Start 03/18/19 at 19:00 Eye Lubricant (Artificial Tears Oph) 2 drop Q6H PRN BOTH EYES DRY EYES; Start 03/20/19 at 09:30 Assessment/Plan Additional Assessment/Plan Rehab- Metabolic encephalopathy, status post thoracolumbar fusion for lumbar fracture with paraspinal hematoma Continue rehab, and schedule caregiver training this week Ankylosing spondylitis. Coronary artery disease. Hyperlipidemia. Severe osteoarthritis affecting multiple joints including right shoulder with decreased range of motion. Multiple skin abrasions. YEHUDA CRAMER MD Mar 22, 2019 14:44
[2019-03-22 20:00] VITALS: BP 139/63; PULSE 80; RESP 18
[2019-03-22] MEDS: SENNA TAB PO SCH (21:00)
[2019-03-22] MEDS: traZODone 50 MG TAB PO SCH (21:00)
[2019-03-23 02:25] VITALS: BP 131/62; PULSE 79; RESP 18
[2019-03-23 07:00] VITALS: BP 134/62; PULSE 82; RESP 18
[2019-03-23] MEDS: DOCUSATE SODIUM 100 MG CAP PO SCH ×2 (09:00→21:00)
[2019-03-23] MEDS: ASCORBIC ACID 500 MG TAB PO SCH (09:41)
[2019-03-23] MEDS: MULTIVITAMINS THERAPEUTIC TAB PO SCH (09:41)
[2019-03-23] MEDS: CLOPIDOGREL 75 MG TAB PO SCH (09:42)
[2019-03-23] MEDS: BENAZEPRIL 10 MG TAB PO SCH (09:42)
[2019-03-23] MEDS: METOPROLOL (XL) 50 MG TAB PO SCH (09:42)
[2019-03-23] MEDS: SILVER SULFADIAZINE 1% 25 GM CR TOP SCH (09:42)
--- NOTE | 2019-03-23 12:04 | PN ---
Date/Time of Note Date/Time of Note DATE: 03/23/19 TIME: 12:02 Subjective SW reports he will have more assistance at home this Objective Vital Signs Date Temp Pulse Resp B/P (MAP) Pulse Ox O2 O2 Flow FiO2 Time Delivery Rate 03/23/19 97.9 82 18 134/62 96 Room Air 07:00 (86) 03/22/19 2.0 08:30 03/21/19 21 21:16 Intake and Output 03/22/19 03/22/19 03/23/19 1515:00 23:00 07:00 IntakeIntake Total 990 ml OutputOutput Total 150 ml 570 ml 800 ml BalanceBalance -150 ml 420 ml -800 ml Exam pulm-cta abd-soft cga ambulation 150 feet Results/Medications Medications Current Medications Miscellaneous Information (Pending [facility] Order For Wound Care) This patient mejia... PRN PRN XX WOUND CARE; Start 03/16/19 at 16:30 Senna (Senokot) 1 tab HS PO Last administered on 03/21/19at 20:37; Admin Dose 1 TAB; Start 03/16/19 at 21:00 Magnesium Hydroxide (Milk Of Mag) 30 ml BID PRN PO CONSTIPATION; Start 03/16/19 at 16:30 Lactulose (Enulose) 20 gm DAILY PRN PO CONSTIPATION; Start 03/16/19 at 16:30 Bisacodyl (Dulcolax Supp) 10 mg DAILY PRN [place] CONSTIPATION; Start 03/16/19 at 16:30 Docusate Sodium (Colace) 100 mg Q12 PO Last administered on 03/21/19at 20:36; Admin Dose 100 MG; Start 03/16/19 at 21:00 Acetaminophen (Tylenol Tab) 325 mg Q6H PRN PO MILD PAIN(1-3)OR ELEVATED TEMP; Start 03/16/19 at 17:00 Bisacodyl (Dulcolax) 5 mg DAILY PRN PO CONSTIPATION Last administered on 03/18/19at 08:53; Admin Dose 5 MG; Start 03/16/19 at 17:00 Acetaminophen/ Hydrocodone Bitart ([place] (5/325)) 1 tab Q6H PRN PO BREAKTHROUGH PAIN Last administered on 03/17/19at 02:30; Admin Dose 1 TAB; Start 03/16/19 at 17:00 Metoprolol Succinate (Toprol Xl) 50 mg DAILY PO Last administered on 03/23/19 09:42; Admin Dose 50 MG; Start 03/17/19 at 09:00 Nitroglycerin (Nitroglycerin (Sl Tab) 0.4 Mg) 1 tab Q5M PRN SL ANGINA; Start 03/16/19 at 17:00 Ondansetron HCl (Zofran Inj) 4 mg Q6H PRN IV NAUSEA AND/OR VOMITING Last administered on 03/17/19 09:19; Admin Dose 4 MG; Start 03/16/19 at 17:00 Trazodone HCl (Desyrel) 25 mg HS PO Last administered on 03/21/19 20:37; Admin Dose 25 MG; Start 03/16/19 at 21:00 Clopidogrel Bisulfate (plaVIX) 75 mg DAILY PO Last administered on 03/23/19 09:42; Admin Dose 75 MG; Start 03/16/19 at 20:00 Al Hydrox/Mg Hydrox/Simethicone (Mag-Al Plus) 30 ml Q6H PRN PO GASTROINTESTINAL UPSET; Start 03/16/19 at 17:30 Silver Sulfadiazine (Thermazene 1% 25 Gm) 1 applic DAILY TOP Last administered on 03/23/19 09:42; Admin Dose 1 APPLIC; Start 03/17/19 at 09:00 Hydrocortisone (Hydrocortisone 0.5% Cr) 1 applic BID PRN TOP ITCHING Last administered on 03/21/19 16:30; Admin Dose 1 APPLIC; Start 03/17/19 at 13:00 Multivitamins Therapeutic (Theragran) 1 tab DAILY PO Last administered on 03/23/19 09:41; Admin Dose 1 TAB; Start 03/17/19 at 12:30 Ascorbic Acid (Vitamin C) 500 mg DAILY PO Last administered on 03/23/19 09:41; Admin Dose 500 MG; Start 03/17/19 at 12:30 Benazepril HCl (Lotensin) 10 mg DAILY PO Last administered on 03/23/19 09:42; Admin Dose 10 MG; Start 03/19/19 at 09:00 Morphine Sulfate (morphine) 1 mg Q4H PRN IV SEVERE PAIN LEVEL 7-10; Start 03/18/19 at 21:00 Acetaminophen/ Hydrocodone Bitart ([place] (5/325)) 2 tab Q4H PRN PO MODERATE PAIN LEVEL 4-6 Last administered on 03/20/19at 11:42; Admin Dose 2 TAB; Start 03/18/19 at 19:00 Eye Lubricant (Artificial Tears Oph) 2 drop Q6H PRN BOTH EYES DRY EYES Last administered on 03/23/19at 11:21; Admin Dose 2 DROP; Start 03/20/19 at 09:30 Assessment/Plan Additional Assessment/Plan Rehab- Metabolic encephalopathy, status post thoracolumbar fusion for lumbar fracture with paraspinal hematoma Continue rehab interdisciplinary program. Workingtowrds home this weekend. Ankylosing spondylitis. Coronary artery disease. Hyperlipidemia. Severe osteoarthritis affecting multiple joints including right shoulder with decreased range of motion. Multiple skin abrasions. YEHUDA CRAMER MD Mar 23, 2019 12:04
--- NOTE | 2019-03-23 13:43 | PN ---
Date/Time of Note Date/Time of Note DATE: 03/23/19 TIME: 13:42 Assessment/Plan VTE Prophylaxis Risk score (from Ns)>0 risk: 6 SCD applied (from Ns): Yes Pharmacological prophylaxis: NA/contraindicated Pharm contraindication: low risk/ambulating Lines/Catheters IV Catheter Type (from [facility]): Urinary Cath still in place: No Assessment/Plan Hospital Course SUBJECTIVE: No acute overnight episodes. OBJECTIVE: Vital signs-see below PHYSICAL EXAM: Constitutional: Elderly male,not in acute distress. HEENT: Head atraumatic and normocephalic. Eyes: Extraocular muscles intact. Anicteric sclerae. Pupils equal bilaterally, reactive to light. NECK: Supple without lymph node. CHEST: Clear and good breath sounds equally. No wheezing. No rhonchi. HEART: S1, S2. Regular rate and rhythm. ABDOMEN: Soft/non tender with no rebound tenderness. Bowel sounds were present. EXTREMITIES: Dressing LLE c/d/i. Lower back surgical site intact w/montserrat. No cyanosis, clubbing or edema. NEUROLOGIC: Alert and oriented x3. No focal deficit. No sensory deficit. PSYCHOSOCIAL: No signs of depression. INTEGUMENTARY: No open wounds. ASSESSMENT AND PLAN: L2 chance fracture -s/p T12 to L4 posterolateral arthrodesis with allograft 03/11 -Followed by neurosurgery with plan for staple removal likely this wk -Wound care per NS instructions CAD/PCI w/stent -cont.antiplatelet (cleared from NS)/bb/ACEi Anemia,likely chronic -stable HTN -Continue beta-blockers/ NICHOLAS inhibitor DVT ppx:Ambulation Patient was seen in collaboration with DR. Mejia. Exam/Review of Systems Exam Vitals Vital Signs Date Temp Pulse Resp B/P (MAP) Pulse Ox O2 O2 Flow FiO2 Time Delivery Rate 03/23/19 97.9 82 18 134/62 96 Room Air 07:00 (86) 03/22/19 2.0 08:30 03/21/19 21 21:16 Intake and Output 03/22/19 03/22/19 03/23/19 1515:00 23:00 07:00 IntakeIntake Total 990 ml OutputOutput Total 150 ml 570 ml 800 ml BalanceBalance -150 ml 420 ml -800 ml Medications Medication Current Medications Miscellaneous Information (Pending [facility] Order For Wound Care) This patient mejia... PRN PRN XX WOUND CARE; Start 03/16/19 at 16:30 Senna (Senokot) 1 tab HS PO Last administered on 03/21/19 20:37; Admin Dose 1 TAB; Start 03/16/19 at 21:00 Magnesium Hydroxide (Milk Of Mag) 30 ml BID PRN PO CONSTIPATION; Start 03/16/19 at 16:30 Lactulose (Enulose) 20 gm DAILY PRN PO CONSTIPATION; Start 03/16/19 at 16:30 Bisacodyl (Dulcolax Supp) 10 mg DAILY PRN [place] CONSTIPATION; Start 03/16/19 at 16:30 Docusate Sodium (Colace) 100 mg Q12 PO Last administered on 03/21/19 20:36; Admin Dose 100 MG; Start 03/16/19 at 21:00 Acetaminophen (Tylenol Tab) 325 mg Q6H PRN PO MILD PAIN(1-3)OR ELEVATED TEMP; Start 03/16/19 at 17:00 Bisacodyl (Dulcolax) 5 mg DAILY PRN PO CONSTIPATION Last administered on 03/18/19 08:53; Admin Dose 5 MG; Start 03/16/19 at 17:00 Acetaminophen/ Hydrocodone Bitart ([place] (5/325)) 1 tab Q6H PRN PO BREAKTHROUGH PAIN Last administered on 03/17/19 02:30; Admin Dose 1 TAB; Start 03/16/19 at 17:00 Metoprolol Succinate (Toprol Xl) 50 mg DAILY PO Last administered on 03/23/19 09:42; Admin Dose 50 MG; Start 03/17/19 at 09:00 Nitroglycerin (Nitroglycerin (Sl Tab) 0.4 Mg) 1 tab Q5M PRN SL ANGINA; Start 03/16/19 at 17:00 Ondansetron HCl (Zofran Inj) 4 mg Q6H PRN IV NAUSEA AND/OR VOMITING Last administered on 03/17/19 09:19; Admin Dose 4 MG; Start 03/16/19 at 17:00 Trazodone HCl (Desyrel) 25 mg HS PO Last administered on 03/21/19 20:37; Admin Dose 25 MG; Start 03/16/19 at 21:00 Clopidogrel Bisulfate (plaVIX) 75 mg DAILY PO Last administered on 03/23/19 09:42; Admin Dose 75 MG; Start 03/16/19 at 20:00 Al Hydrox/Mg Hydrox/Simethicone (Mag-Al Plus) 30 ml Q6H PRN PO GASTROINTESTINAL UPSET; Start 03/16/19 at 17:30 Silver Sulfadiazine (Thermazene 1% 25 Gm) 1 applic DAILY TOP Last administered on 03/23/19 09:42; Admin Dose 1 APPLIC; Start 03/17/19 at 09:00 Hydrocortisone (Hydrocortisone 0.5% Cr) 1 applic BID PRN [place] ITCHING Last administered on 03/21/19 16:30; Admin Dose 1 APPLIC; Start 03/17/19 at 13:00 Multivitamins Therapeutic (Theragran) 1 tab DAILY PO Last administered on 03/23/19 09:41; Admin Dose 1 TAB; Start 03/17/19 at 12:30 Ascorbic Acid (Vitamin C) 500 mg DAILY PO Last administered on 03/23/19 09:41; Admin Dose 500 MG; Start 03/17/19 at 12:30 Benazepril HCl (Lotensin) 10 mg DAILY PO Last administered on 03/23/19 09:42; Admin Dose 10 MG; Start 03/19/19 at 09:00 Morphine Sulfate (morphine) 1 mg Q4H PRN IV SEVERE PAIN LEVEL 7-10; Start 03/18/19 at 21:00 Acetaminophen/ Hydrocodone Bitart ([place] (5/325)) 2 tab Q4H PRN PO MODERATE PAIN LEVEL 4-6 Last administered on 03/20/19 11:42; Admin Dose 2 TAB; Start 03/18/19 at 19:00 Eye Lubricant (Artificial Tears Oph) 2 drop Q6H PRN BOTH EYES DRY EYES Last administered on 03/23/19 11:21; Admin Dose 2 DROP; Start 03/20/19 at 09:30 ALECIA SANTIAGO NP Mar 23, 2019 13:43
[2019-03-23 14:00] VITALS: BP 111/54; PULSE 78; RESP 18
--- NOTE | 2019-03-23 14:27 | CONS ---
Consult Date/Type/Reason Admit Date/Time Mar 16, 2019 at 16:00 Initial Consult Date Requesting Provider: ALECIA SANTIAGO NP Date/Time of Note DATE: 03/23/19 TIME: 14:25 Subjective NO acute events - pt comfortable - con't rehab now. ROS: No fever, no chills, no nausea, no vomiting, no diarrhea/constipation + fatigue Objective Vitals Vital Signs Date Temp Pulse Resp B/P (MAP) Pulse Ox O2 O2 Flow FiO2 Time Delivery Rate 03/23/19 97.9 82 18 134/62 96 Room Air 07:00 (86) 03/22/19 2.0 08:30 03/21/19 21 21:16 Intake and Output 03/22/19 03/22/19 03/23/19 1515:00 23:00 07:00 IntakeIntake Total 990 ml OutputOutput Total 150 ml 570 ml 800 ml BalanceBalance -150 ml 420 ml -800 ml Exam General: WN/WD/NAD, AOx 3 HEENT: Unicetric/atraumatic/EOMI (follow commands) NECK: JVD elevated, no thyromegaly Lymph: no lymphadenopathy HEART: regular with no S3, II/ systolic murmur at apex, PMI L LUNGS: Coarse sounds ABD: soft, NT, ND, +BS : Intact Neuro: non focal SKIN: chronic changes EXT: trace edema Results/Medications Home Meds Reported Medications Tamsulosin Hcl* (Flomax*) 0.4 Mg Cap.er.24h, 0.4 MG PO NEEDED, CAP 03/09/19 Clopidogrel Bisulfate* (Clopidogrel Bisulfate*) 75 Mg Tablet, 75 MG PO DAILY, #30 TAB 03/09/19 Metoprolol Succinate* (Toprol XL*) 50 Mg Tab.er.24h, 50 MG PO DAILY, #30 TAB 03/09/19 Medications Current Medications Miscellaneous Information (Pending [facility] Order For Wound Care) This patient mejia... PRN PRN XX WOUND CARE; Start 03/16/19 at 16:30 Senna (Senokot) 1 tab HS PO Last administered on 03/21/19at 20:37; Admin Dose 1 TAB; Start 03/16/19 at 21:00 Magnesium Hydroxide (Milk Of Mag) 30 ml BID PRN PO CONSTIPATION; Start 03/16/19 at 16:30 Lactulose (Enulose) 20 gm DAILY PRN PO CONSTIPATION; Start 03/16/19 at 16:30 Bisacodyl (Dulcolax Supp) 10 mg DAILY PRN [place] CONSTIPATION; Start 03/16/19 at 16:30 Docusate Sodium (Colace) 100 mg Q12 PO Last administered on 03/21/19 20:36; Admin Dose 100 MG; Start 03/16/19 at 21:00 Acetaminophen (Tylenol Tab) 325 mg Q6H PRN PO MILD PAIN(1-3)OR ELEVATED TEMP; Start 03/16/19 at 17:00 Bisacodyl (Dulcolax) 5 mg DAILY PRN PO CONSTIPATION Last administered on 03/18/19 08:53; Admin Dose 5 MG; Start 03/16/19 at 17:00 Acetaminophen/ Hydrocodone Bitart ([place] (5/325)) 1 tab Q6H PRN PO BREAKTHROUGH PAIN Last administered on 03/17/19 02:30; Admin Dose 1 TAB; Start 03/16/19 at 17:00 Metoprolol Succinate (Toprol Xl) 50 mg DAILY PO Last administered on 03/23/19 09:42; Admin Dose 50 MG; Start 03/17/19 at 09:00 Nitroglycerin (Nitroglycerin (Sl Tab) 0.4 Mg) 1 tab Q5M PRN SL ANGINA; Start 03/16/19 at 17:00 Ondansetron HCl (Zofran Inj) 4 mg Q6H PRN IV NAUSEA AND/OR VOMITING Last administered on 03/17/19 09:19; Admin Dose 4 MG; Start 03/16/19 at 17:00 Trazodone HCl (Desyrel) 25 mg HS PO Last administered on 03/21/19 20:37; Admin Dose 25 MG; Start 03/16/19 at 21:00 Clopidogrel Bisulfate (plaVIX) 75 mg DAILY PO Last administered on 03/23/19 09:42; Admin Dose 75 MG; Start 03/16/19 at 20:00 Al Hydrox/Mg Hydrox/Simethicone (Mag-Al Plus) 30 ml Q6H PRN PO GASTROINTESTINAL UPSET; Start 03/16/19 at 17:30 Silver Sulfadiazine (Thermazene 1% 25 Gm) 1 applic DAILY TOP Last administered on 03/23/19 09:42; Admin Dose 1 APPLIC; Start 03/17/19 at 09:00 Hydrocortisone (Hydrocortisone 0.5% Cr) 1 applic BID PRN [place] ITCHING Last administered on 03/21/19 16:30; Admin Dose 1 APPLIC; Start 03/17/19 at 13:00 Multivitamins Therapeutic (Theragran) 1 tab DAILY PO Last administered on 03/23/19 09:41; Admin Dose 1 TAB; Start 03/17/19 at 12:30 Ascorbic Acid (Vitamin C) 500 mg DAILY PO Last administered on 03/23/19 09:41; Admin Dose 500 MG; Start 03/17/19 at 12:30 Benazepril HCl (Lotensin) 10 mg DAILY PO Last administered on 03/23/19 09:42; Admin Dose 10 MG; Start 03/19/19 at 09:00 Morphine Sulfate (morphine) 1 mg Q4H PRN IV SEVERE PAIN LEVEL 7-10; Start 03/18/19 at 21:00 Acetaminophen/ Hydrocodone Bitart ([place] (5/325)) 2 tab Q4H PRN PO MODERATE PAIN LEVEL 4-6 Last administered on 03/20/19 11:42; Admin Dose 2 TAB; Start 03/18/19 at 19:00 Eye Lubricant (Artificial Tears Oph) 2 drop Q6H PRN BOTH EYES DRY EYES Last administered on 03/23/19 11:21; Admin Dose 2 DROP; Start 03/20/19 at 09:30 Assessment/Plan Hospital Course (Demo Recall) 1. Preoperative evaluation prior to surgery for traumatic L2 fracture with associated hematoma.-Now post- s/p t12-L4 arthrodesis - con't paib Rx - rehab to follow. Doing well in rehab - beginning to ambulate. Con't recovery - tolerating increased work load. Con't rehab. 2. No portal hypertension, but on a beta carlos at baseline. BP stable now. Rate controlled. On meds. OFF TELE now - in sinus by exam. 3. History of percutaneous transluminal coronary angioplasty and stent placement, most recently 2014.-NL EF by echo and no sig valve abnl - no CP, no intervention planned. 4. 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 NO CP now. 5. Possible dyslipidemia by medications although the patient denies. 6. Traumatic L2 fracture. 7. History of lymphedema per patient, currently resolved. None now. 8. Ankylosing spondylitis by CT. 9. Severe osteoarthritis- con't rehab. 10. chest pain- described as chest tightness - resolved. Doubt ACS - no interve ntion planned. ANURADHA SEGURA MD Mar 23, 2019 14:27
[2019-03-23] MEDS: SENNA TAB PO SCH (21:00)
[2019-03-23] MEDS: traZODone 50 MG TAB PO SCH (21:00)
[2019-03-23 21:48] VITALS: BP 148/65; PULSE 107; RESP 18
[2019-03-24 03:58] VITALS: BP 140/65; PULSE 98; RESP 18
[2019-03-24 07:00] VITALS: BP 128/59; PULSE 99; RESP 18
[2019-03-24] MEDS: BENAZEPRIL 10 MG TAB PO SCH (08:42)
[2019-03-24] MEDS: ASCORBIC ACID 500 MG TAB PO SCH (08:42)
[2019-03-24] MEDS: MULTIVITAMINS THERAPEUTIC TAB PO SCH (08:42)
[2019-03-24] MEDS: CLOPIDOGREL 75 MG TAB PO SCH (08:42)
[2019-03-24] MEDS: DOCUSATE SODIUM 100 MG CAP PO SCH ×2 (08:43→21:31)
[2019-03-24] MEDS: METOPROLOL (XL) 50 MG TAB PO SCH (08:43)
--- NOTE | 2019-03-24 10:58 | PN ---
Date/Time of Note Date/Time of Note DATE: 03/24/19 TIME: 10:57 Assessment/Plan VTE Prophylaxis [place] [facility]: 6 SCD applied (from Ns): Yes Pharmacological prophylaxis: NA/contraindicated Pharm contraindication: low risk/ambulating Lines/Catheters IV Catheter Type (from [facility]): Urinary Cath still in place: No Assessment/Plan Hospital Course SUBJECTIVE: No acute overnight episodes. OBJECTIVE: Vital signs-see below PHYSICAL EXAM: Constitutional: Elderly male,not in acute distress. HEENT: Head atraumatic and normocephalic. Eyes: Extraocular muscles intact. Anicteric sclerae. Pupils equal bilaterally, reactive to light. NECK: Supple without lymph node. CHEST: Clear and good breath sounds equally. No wheezing. No rhonchi. HEART: S1, S2. Regular rate and rhythm. ABDOMEN: Soft/non tender with no rebound tenderness. Bowel sounds were present. EXTREMITIES: Dressing LLE c/d/i. Lower back surgical site intact w/montserrat. No cyanosis, clubbing or edema. NEUROLOGIC: Alert and oriented x3. No focal deficit. No sensory deficit. PSYCHOSOCIAL: No signs of depression. INTEGUMENTARY: No open wounds. ASSESSMENT AND PLAN: L2 chance fracture -s/p T12 to L4 posterolateral arthrodesis with allograft 03/11 -Followed by neurosurgery with plan for staple removal likely this wk -Wound care per NS instructions CAD/PCI w/stent -cont.antiplatelet (cleared from NS)/bb/ACEi Anemia,likely chronic -stable HTN -Continue beta-blockers/ NICHOLAS inhibitor DVT ppx:Ambulation Patient was seen in collaboration with DR. Mejia. Exam/Review of Systems Exam Vitals Vital Signs Date Temp Pulse Resp B/P (MAP) Pulse Ox O2 O2 Flow FiO2 Time Delivery Rate 03/24/19 97.8 99 18 128/59 97 Room Air 07:00 (82) 03/22/19 2.0 08:30 03/21/19 21 21:16 Intake and Output 03/23/19 03/23/19 03/24/19 1515:00 23:00 07:00 IntakeIntake Total 1200 ml 480 ml OutputOutput Total 900 ml 400 ml BalanceBalance 300 ml 80 ml Medications Medication Current Medications Miscellaneous Information (Pending [facility] Order For Wound Care) This patient mejia... PRN PRN XX WOUND CARE; Start 03/16/19 at 16:30 Senna (Senokot) 1 tab HS PO Last administered on 03/21/19 20:37; Admin Dose 1 TAB; Start 03/16/19 at 21:00 Magnesium Hydroxide (Milk Of Mag) 30 ml BID PRN PO CONSTIPATION; Start 03/16/19 at 16:30 Lactulose (Enulose) 20 gm DAILY PRN PO CONSTIPATION; Start 03/16/19 at 16:30 Bisacodyl (Dulcolax Supp) 10 mg DAILY PRN [place] CONSTIPATION; Start 03/16/19 at 16:30 Docusate Sodium (Colace) 100 mg Q12 PO Last administered on 03/21/19 20:36; Admin Dose 100 MG; Start 03/16/19 at 21:00 Acetaminophen (Tylenol Tab) 325 mg Q6H PRN PO MILD PAIN(1-3)OR ELEVATED TEMP; Start 03/16/19 at 17:00 Bisacodyl (Dulcolax) 5 mg DAILY PRN PO CONSTIPATION Last administered on 03/18/19 08:53; Admin Dose 5 MG; Start 03/16/19 at 17:00 Acetaminophen/ Hydrocodone Bitart ([place] (5/325)) 1 tab Q6H PRN PO BREAKTHROUGH PAIN Last administered on 03/17/19 02:30; Admin Dose 1 TAB; Start 03/16/19 at 17:00 Metoprolol Succinate (Toprol Xl) 50 mg DAILY PO Last administered on 03/24/19 08:43; Admin Dose 50 MG; Start 03/17/19 at 09:00 Nitroglycerin (Nitroglycerin (Sl Tab) 0.4 Mg) 1 tab Q5M PRN SL ANGINA; Start 03/16/19 at 17:00 Ondansetron HCl (Zofran Inj) 4 mg Q6H PRN IV NAUSEA AND/OR VOMITING Last administered on 03/17/19 09:19; Admin Dose 4 MG; Start 03/16/19 at 17:00 Trazodone HCl (Desyrel) 25 mg HS PO Last administered on 03/21/19 20:37; Admin Dose 25 MG; Start 03/16/19 at 21:00 Clopidogrel Bisulfate (plaVIX) 75 mg DAILY PO Last administered on 03/24/19 08:42; Admin Dose 75 MG; Start 03/16/19 at 20:00 Al Hydrox/Mg Hydrox/Simethicone (Mag-Al Plus) 30 ml Q6H PRN PO GASTROINTESTINAL UPSET; Start 03/16/19 at 17:30 Silver Sulfadiazine (Thermazene 1% 25 Gm) 1 applic DAILY TOP Last administered on 03/23/19 09:42; Admin Dose 1 APPLIC; Start 03/17/19 at 09:00 Hydrocortisone (Hydrocortisone 0.5% Cr) 1 applic BID PRN TOP ITCHING Last administered on 03/21/19 16:30; Admin Dose 1 APPLIC; Start 03/17/19 at 13:00 Multivitamins Therapeutic (Theragran) 1 tab DAILY PO Last administered on 03/24/19 08:42; Admin Dose 1 TAB; Start 03/17/19 at 12:30 Ascorbic Acid (Vitamin C) 500 mg DAILY PO Last administered on 03/24/19 08:42; Admin Dose 500 MG; Start 03/17/19 at 12:30 Benazepril HCl (Lotensin) 10 mg DAILY PO Last administered on 03/24/19 08:42; Admin Dose 10 MG; Start 03/19/19 at 09:00 Morphine Sulfate (morphine) 1 mg Q4H PRN IV SEVERE PAIN LEVEL 7-10; Start 03/18/19 at 21:00 Acetaminophen/ Hydrocodone Bitart ([place] (5/325)) 2 tab Q4H PRN PO MODERATE PAIN LEVEL 4-6 Last administered on 03/20/19 11:42; Admin Dose 2 TAB; Start 03/18/19 at 19:00 Eye Lubricant (Artificial Tears Oph) 2 drop Q6H PRN BOTH EYES DRY EYES Last administered on 03/23/19 11:21; Admin Dose 2 DROP; Start 03/20/19 at 09:30 ALECIA SANTIAGO NP Mar 24, 2019 10:58
--- NOTE | 2019-03-24 11:48 | PN ---
Date/Time of Note Date/Time of Note DATE: 03/24/19 TIME: 11:47 Subjective Patient reports urinary frequency Objective Vital Signs Date Temp Pulse Resp B/P (MAP) Pulse Ox O2 O2 Flow FiO2 Time Delivery Rate 03/24/19 97.8 99 18 128/59 97 Room Air 07:00 (82) 03/22/19 2.0 08:30 03/21/19 21 21:16 Intake and Output 03/23/19 03/23/19 03/24/19 1414:59 22:59 06:59 IntakeIntake Total 1200 ml 480 ml OutputOutput Total 900 ml 400 ml BalanceBalance 300 ml 80 ml Exam pulm-cta cga ambulation 150 feet Results/Medications Medications Current Medications Miscellaneous Information (Pending [facility] Order For Wound Care) This patient mejia... PRN PRN XX WOUND CARE; Start 03/16/19 at 16:30 Senna (Senokot) 1 tab HS PO Last administered on 03/21/19at 20:37; Admin Dose 1 TAB; Start 03/16/19 at 21:00 Magnesium Hydroxide (Milk Of Mag) 30 ml BID PRN PO CONSTIPATION; Start 03/16/19 at 16:30 Lactulose (Enulose) 20 gm DAILY PRN PO CONSTIPATION; Start 03/16/19 at 16:30 Bisacodyl (Dulcolax Supp) 10 mg DAILY PRN [place] CONSTIPATION; Start 03/16/19 at 16:30 Docusate Sodium (Colace) 100 mg Q12 PO Last administered on 03/21/19at 20:36; Admin Dose 100 MG; Start 03/16/19 at 21:00 Acetaminophen (Tylenol Tab) 325 mg Q6H PRN PO MILD PAIN(1-3)OR ELEVATED TEMP; Start 03/16/19 at 17:00 Bisacodyl (Dulcolax) 5 mg DAILY PRN PO CONSTIPATION Last administered on 03/18/19at 08:53; Admin Dose 5 MG; Start 03/16/19 at 17:00 Acetaminophen/ Hydrocodone Bitart ([place] (5/325)) 1 tab Q6H PRN PO BREAKTHROUGH PAIN Last administered on 03/17/19at 02:30; Admin Dose 1 TAB; Start 03/16/19 at 17:00 Metoprolol Succinate (Toprol Xl) 50 mg DAILY PO Last administered on 03/24/19 08:43; Admin Dose 50 MG; Start 03/17/19 at 09:00 Nitroglycerin (Nitroglycerin (Sl Tab) 0.4 Mg) 1 tab Q5M PRN SL ANGINA; Start 03/16/19 at 17:00 Ondansetron HCl (Zofran Inj) 4 mg Q6H PRN IV NAUSEA AND/OR VOMITING Last administered on 03/17/19 09:19; Admin Dose 4 MG; Start 03/16/19 at 17:00 Trazodone HCl (Desyrel) 25 mg HS PO Last administered on 03/21/19 20:37; Admin Dose 25 MG; Start 03/16/19 at 21:00 Clopidogrel Bisulfate (plaVIX) 75 mg DAILY PO Last administered on 03/24/19 08:42; Admin Dose 75 MG; Start 03/16/19 at 20:00 Al Hydrox/Mg Hydrox/Simethicone (Mag-Al Plus) 30 ml Q6H PRN PO GASTROINTESTINAL UPSET; Start 03/16/19 at 17:30 Silver Sulfadiazine (Thermazene 1% 25 Gm) 1 applic DAILY TOP Last administered on 03/23/19 09:42; Admin Dose 1 APPLIC; Start 03/17/19 at 09:00 Hydrocortisone (Hydrocortisone 0.5% Cr) 1 applic BID PRN [place] ITCHING Last administered on 03/21/19 16:30; Admin Dose 1 APPLIC; Start 03/17/19 at 13:00 Multivitamins Therapeutic (Theragran) 1 tab DAILY PO Last administered on 03/24/19 08:42; Admin Dose 1 TAB; Start 03/17/19 at 12:30 Ascorbic Acid (Vitamin C) 500 mg DAILY PO Last administered on 03/24/19 08:42; Admin Dose 500 MG; Start 03/17/19 at 12:30 Benazepril HCl (Lotensin) 10 mg DAILY PO Last administered on 03/24/19 08:42; Admin Dose 10 MG; Start 03/19/19 at 09:00 Morphine Sulfate (morphine) 1 mg Q4H PRN IV SEVERE PAIN LEVEL 7-10; Start 03/18/19 at 21:00 Acetaminophen/ Hydrocodone Bitart ([place] (5/325)) 2 tab Q4H PRN PO MODERATE PAIN LEVEL 4-6 Last administered on 03/20/19at 11:42; Admin Dose 2 TAB; Start 03/18/19 at 19:00 Eye Lubricant (Artificial Tears Oph) 2 drop Q6H PRN BOTH EYES DRY EYES Last administered on 03/23/19at 11:21; Admin Dose 2 DROP; Start 03/20/19 at 09:30 Assessment/Plan Additional Assessment/Plan Rehab- Metabolic encephalopathy, status post thoracolumbar fusion for lumbar fracture with paraspinal hematoma Continue rehab treatment plan - check UA and PVR Ankylosing spondylitis. Coronary artery disease. Hyperlipidemia. Severe osteoarthritis affecting multiple joints including right shoulder with decreased range of motion. Multiple skin abrasions. YEHUDA CRAMER MD Mar 24, 2019 11:48
[2019-03-24 14:00] VITALS: BP 113/54; PULSE 96; RESP 18
--- NOTE | 2019-03-24 15:51 | CONS ---
Assessment/Plan Assessment/Plan Hospital Course (Demo Recall) IMPRESSION: 1. Preoperative evaluation prior to surgery for traumatic L2 fracture with associated hematoma.-Now post- s/p t12-L4 arthrodesis 2. HTN-well controlled on current medications 3. History of percutaneous transluminal coronary angioplasty and stent placement, most recently 2014.-NL EF by echo and no sig valve abnl 4. 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 5. Possible dyslipidemia by medications although the patient denies. 6. Traumatic L2 fracture. 7. History of lymphedema per patient, currently resolved. 8. Ankylosing spondylitis by CT. 9. Severe osteoarthritis. 10. chest pain-resolved/negative trop's Recc: -Now in rehab with PT as patient will comply -Now on back on plavix -Continue BB/ACEI with reasonable BP control -pain control -Continue abx prophyaxis -local wound care -serial ecg's -PRN SL NTG Consultation Date/Type/Reason Admit Date/Time Mar 16, 2019 at 16:00 Initial Consult Date 03/16/19 Type of Consult Cardiology Reason for Consultation Chest pain Requesting Provider: ALECIA SANTIAGO NP Date/Time of Note DATE: 03/24/19 TIME: 15:50 Exam/Review of Systems Vital Signs Vitals Vital Signs Date Temp Pulse Resp B/P (MAP) Pulse Ox O2 O2 Flow FiO2 Time Delivery Rate 03/24/19 97.8 99 18 128/59 97 Room Air 07:00 (82) 03/22/19 2.0 08:30 03/21/19 21 21:16 Intake and Output 03/23/19 03/23/19 03/24/19 1515:00 23:00 07:00 IntakeIntake Total 1200 ml 480 ml OutputOutput Total 900 ml 400 ml BalanceBalance 300 ml 80 ml Exam Exam Review of Systems: CONSTITUTIONAL: No fevers, chills. PULMONARY: No sob CARDIOVASCULAR: No chest pain/palpitations GASTROINTESTINAL: No nausea/vomiting. GENITOURINARY: No hematuria/dysuria. MUSCULOSKELETAL: No myagias/arthalgias. PSYCHIATRIC: The patient denies depression. NEUROLOGIC: No weakness Constitutional: alert Psych: no complaints Head: normocephalic ENMT: mucosa pink and moist Neck: supple, jvd (9 cm water) Respiratory: clear to auscultation Cardiovascular: regular rate and rhythm Gastrointestinal: soft, non-tender Musculoskeletal: muscle tone (normal) Extremities: edema (none), other (leg covered by dressing) Labs Results 24hrs Laboratory Tests Test 03/24/19 10:30 Urine Color YELLOW Urine Clarity CLEAR Urine pH 6.0 Urine Specific [place] 1.011 Urine Ketones TRACE A Urine Nitrite NEGATIVE Urine Bilirubin NEGATIVE Urine Urobilinogen 2+ H Urine Leukocyte Esterase NEGATIVE Urine Hemoglobin NEGATIVE Urine Glucose NEGATIVE Urine Total Protein NEGATIVE Medications Medications Current Medications Miscellaneous Information (Pending [facility] Order For Wound Care) This patient mejia... PRN PRN XX WOUND CARE; Start 03/16/19 at 16:30 Senna (Senokot) 1 tab HS PO Last administered on 03/21/19at 20:37; Admin Dose 1 TAB; Start 03/16/19 at 21:00 Magnesium Hydroxide (Milk Of Mag) 30 ml BID PRN PO CONSTIPATION; Start 03/16/19 at 16:30 Lactulose (Enulose) 20 gm DAILY PRN PO CONSTIPATION; Start 03/16/19 at 16:30 Bisacodyl (Dulcolax Supp) 10 mg DAILY PRN [place] CONSTIPATION; Start 03/16/19 at 16:30 Docusate Sodium (Colace) 100 mg Q12 PO Last administered on 03/21/19at 20:36; Admin Dose 100 MG; Start 03/16/19 at 21:00 Acetaminophen (Tylenol Tab) 325 mg Q6H PRN PO MILD PAIN(1-3)OR ELEVATED TEMP; Start 03/16/19 at 17:00 Bisacodyl (Dulcolax) 5 mg DAILY PRN PO CONSTIPATION Last administered on 03/18/19at 08:53; Admin Dose 5 MG; Start 03/16/19 at 17:00 Acetaminophen/ Hydrocodone Bitart ([place] (5/325)) 1 tab Q6H PRN PO BREAKTHROUGH PAIN Last administered on 03/17/19at 02:30; Admin Dose 1 TAB; Start 03/16/19 at 17:00 Metoprolol Succinate (Toprol Xl) 50 mg DAILY PO Last administered on 03/24/19at 08:43; Admin Dose 50 MG; Start 03/17/19 at 09:00 Nitroglycerin (Nitroglycerin (Sl Tab) 0.4 Mg) 1 tab Q5M PRN SL ANGINA; Start 03/16/19 at 17:00 Ondansetron HCl (Zofran Inj) 4 mg Q6H PRN IV NAUSEA AND/OR VOMITING Last administered on 03/17/19 09:19; Admin Dose 4 MG; Start 03/16/19 at 17:00 Trazodone HCl (Desyrel) 25 mg HS PO Last administered on 03/21/19 20:37; Admin Dose 25 MG; Start 03/16/19 at 21:00 Clopidogrel Bisulfate (plaVIX) 75 mg DAILY PO Last administered on 03/24/19 08:42; Admin Dose 75 MG; Start 03/16/19 at 20:00 Al Hydrox/Mg Hydrox/Simethicone (Mag-Al Plus) 30 ml Q6H PRN PO GASTROINTESTINAL UPSET; Start 03/16/19 at 17:30 Silver Sulfadiazine (Thermazene 1% 25 Gm) 1 applic DAILY TOP Last administered on 03/23/19 09:42; Admin Dose 1 APPLIC; Start 03/17/19 at 09:00 Hydrocortisone (Hydrocortisone 0.5% Cr) 1 applic BID PRN TOP ITCHING Last administered on 03/21/19 16:30; Admin Dose 1 APPLIC; Start 03/17/19 at 13:00 Multivitamins Therapeutic (Theragran) 1 tab DAILY PO Last administered on 03/24/19 08:42; Admin Dose 1 TAB; Start 03/17/19 at 12:30 Ascorbic Acid (Vitamin C) 500 mg DAILY PO Last administered on 03/24/19 08:42; Admin Dose 500 MG; Start 03/17/19 at 12:30 Benazepril HCl (Lotensin) 10 mg DAILY PO Last administered on 03/24/19 08:42; Admin Dose 10 MG; Start 03/19/19 at 09:00 Morphine Sulfate (morphine) 1 mg Q4H PRN IV SEVERE PAIN LEVEL 7-10; Start 03/18/19 at 21:00 Acetaminophen/ Hydrocodone Bitart ([place] (5/325)) 2 tab Q4H PRN PO MODERATE PAIN LEVEL 4-6 Last administered on 03/20/19 11:42; Admin Dose 2 TAB; Start 03/18/19 at 19:00 Eye Lubricant (Artificial Tears Oph) 2 drop Q6H PRN BOTH EYES DRY EYES Last administered on 03/23/19at 11:21; Admin Dose 2 DROP; Start 03/20/19 at 09:30 MICKEY SOLITARIO Mar 24, 2019 15:51
[2019-03-24 19:33] VITALS: BP 132/68; PULSE 97; RESP 18
[2019-03-24] MEDS: traZODone 50 MG TAB PO SCH (21:31)
[2019-03-24] MEDS: SENNA TAB PO SCH (21:31)
--- NOTE | 2019-03-24 23:20 | CONS ---
DATE OF ADMISSION: 03/16/2019 DATE OF CONSULTATION: 03/24/2019 TYPE OF CONSULTATION: Psychological. REFERRING PHYSICIAN: Yehuda Figueredo MD. CONSULTING PSYCHOLOGIST: Lupe Rosenthal, PhD. REASON FOR CONSULTATION: This consultation was requested by Dr. Lenny Figueredo in order to evaluate t he cognitive and emotional functioning of this patient related to his present medical condition. HISTORY OF PRESENT ILLNESS: The patient is 84-year-old male. He has a history of ankylosing spondyl itis, coronary artery disease, hyperlipidemia, osteoarthritis, who had a fall. The patient sustained an L2 vertebral fracture. The patient was cleared medically and sent to the acute rehabilitation [facility] for acute multidisciplinary rehabilitation. The patient is motivated to get better and does want to return home as soon as possible. FAMILY AND SOCIAL HISTORY: The patient is living at home with his of 20 years. The patient's w kimberley is staff at [employer] as a nurse. The patient does want to return home after discharge. MEDICATIONS: The patient is not on any psychotropic medications. SUBSTANCE USE: The patient reports that he does not use any alcohol, except for wine a couple of miguelina es per month. The patient reports he does not smoke. MENTAL STATUS EXAMINATION: APPEARANCE: The patient was seen in bed. He is of average height and overweight. The patient is ri ght-handed. BEHAVIOR: The patient was cooperative during the consultation. The patient did attempt to answer al l questions presented to him by the interviewer. MOOD AND AFFECT: The patient's mood appeared to be just slightly depressed. Affect did appear to be slightly anxious. PERCEPTION: The patient reports no hallucinations or delusions. The patient was alert to person, pl grace, situation and time. MEMORY AND COGNITION: The patient's memory and cognition appear to be intact. He was able to rememb er recent and remote events. The patient was able to state the name of the hospital, the month, the year, the patient was also able to state the name of the President of [facility]. The patient cou ld not remember, who the governor of the [facility] is or the mayor of [place]. The pat ient was able to spell "world" backwards. The patient was able to do 2 serial 7 subtractions from 10 0, but then made an error and could not self-correct. Overall, the patient's general cognitive abili ties given his age and recent medical problems is adequate. INTELLIGENCE: Intelligence appears to fall in the average range. INSIGHT: Fair. JUDGMENT: Fair. THOUGHT CONTENT: The patient is concerned about his present medical condition. The patient does wan t to return home as soon as possible. The patient is motivated to get better. DISCUSSION: The patient can likely benefit from some cognitive/behavioral psychotherapy while he is on the unit. Psychotherapy would focus on his underlying level of depression about his medical probl ems. 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 Thank you very much, Dr. Lenny Figueredo, for referring this individual. Please do not hesitate to raymond lynn if you have any additional questions. Dictated By: LUPE ROSENTHAL PHD RK/[place] Conf#: [id number] DID#: [id number] CC: JARRED SANCHEZ MD; YEHUDA FIGUEREDO MD;*EndCC*
[2019-03-25] MEDS: SILVER SULFADIAZINE 1% 25 GM CR TOP SCH ×2 (01:26→09:31)
[2019-03-25 02:00] VITALS: BP 127/64; PULSE 98; RESP 18
[2019-03-25 07:30] VITALS: BP 100/50; PULSE 114; RESP 18
[2019-03-25] MEDS: BENAZEPRIL 10 MG TAB PO SCH (09:00)
--- NOTE | 2019-03-25 09:05 | PN ---
Date/Time of Note Date/Time of Note DATE: 03/25/19 TIME: 09:05 Objective Vital Signs Date Temp Pulse Resp B/P (MAP) Pulse Ox O2 O2 Flow FiO2 Time Delivery Rate 03/25/19 97.9 98 18 127/64 97 Room Air 02:00 (85) 03/22/19 2.0 08:30 03/21/19 21 21:16 Intake and Output 03/24/19 03/24/19 03/25/19 1515:00 23:00 07:00 IntakeIntake Total 1200 ml OutputOutput Total 1200 ml BalanceBalance 0 ml Exam INTERDISCIPLINARY TEAM CONFERENCE Attended by PT, OT, ST, Chinese Herbalist, Social Work, Rehabilitation Nursing, Yard Brakeman and Firer Glost KilnPipe Fitter Supervisor Maintenance Exam: Pulm- cta Abd-soft BOWEL- Cont BLADDER-Cont SKIN- improving OT- DRESSING-sba BATHING-sba TOILETING-sba PT- BED MOBILITY-sba TRANSFERS-sba AMBULATION-sba 150 feet SPEECH- COGNITION- Steady progress, at baseline A/P- Interdisciplinary team conference held today. Please see interdisciplinary sheet. Working toward d.c. on 03/27 with post discharge follow up of physical therapy, occupational therapy. Results/Medications Results 24 hrs Laboratory Tests Test 03/24/19 10:30 Urine Color YELLOW Urine Clarity CLEAR Urine pH 6.0 Urine Specific [place] 1.011 Urine Ketones TRACE A Urine Nitrite NEGATIVE Urine Bilirubin NEGATIVE Urine Urobilinogen 2+ H Urine Leukocyte Esterase NEGATIVE Urine Hemoglobin NEGATIVE Urine Glucose NEGATIVE Urine Total Protein NEGATIVE Medications Current Medications Miscellaneous Information (Pending [facility] Order For Wound Care) This patient mejia... PRN PRN XX WOUND CARE; Start 03/16/19 at 16:30 Senna (Senokot) 1 tab HS PO Last administered on 03/24/19at 21:31; Admin Dose 1 TAB; Start 03/16/19 at 21:00 Magnesium Hydroxide (Milk Of Mag) 30 ml BID PRN PO CONSTIPATION; Start 03/16/19 at 16:30 Lactulose (Enulose) 20 gm DAILY PRN PO CONSTIPATION; Start 03/16/19 at 16:30 Bisacodyl (Dulcolax Supp) 10 mg DAILY PRN [place] CONSTIPATION; Start 03/16/19 at 16:30 Docusate Sodium (Colace) 100 mg Q12 PO Last administered on 6/26/19at 21:31; Admin Dose 100 MG; Start 03/16/19 at 21:00 Acetaminophen (Tylenol Tab) 325 mg Q6H PRN PO MILD PAIN(1-3)OR ELEVATED TEMP; Start 03/16/19 at 17:00 Bisacodyl (Dulcolax) 5 mg DAILY PRN PO CONSTIPATION Last administered on 03/18/19 08:53; Admin Dose 5 MG; Start 03/16/19 at 17:00 Acetaminophen/ Hydrocodone Bitart ([place] (5/325)) 1 tab Q6H PRN PO BREAKTHROUGH PAIN Last administered on 03/17/19 02:30; Admin Dose 1 TAB; Start 03/16/19 at 17:00 Metoprolol Succinate (Toprol Xl) 50 mg DAILY PO Last administered on 03/24/19 08:43; Admin Dose 50 MG; Start 03/17/19 at 09:00 Nitroglycerin (Nitroglycerin (Sl Tab) 0.4 Mg) 1 tab Q5M PRN SL ANGINA; Start 03/16/19 at 17:00 Ondansetron HCl (Zofran Inj) 4 mg Q6H PRN IV NAUSEA AND/OR VOMITING Last administered on 03/17/19 09:19; Admin Dose 4 MG; Start 03/16/19 at 17:00 Trazodone HCl (Desyrel) 25 mg HS PO Last administered on 03/24/19 21:31; Admin Dose 25 MG; Start 03/16/19 at 21:00 Clopidogrel Bisulfate (plaVIX) 75 mg DAILY PO Last administered on 03/24/19 08:42; Admin Dose 75 MG; Start 03/16/19 at 20:00 Al Hydrox/Mg Hydrox/Simethicone (Mag-Al Plus) 30 ml Q6H PRN PO GASTROINTESTINAL UPSET; Start 03/16/19 at 17:30 Silver Sulfadiazine (Thermazene 1% 25 Gm) 1 applic DAILY TOP Last administered on 03/25/19 01:26; Admin Dose 1 APPLIC; Start 03/17/19 at 09:00 Hydrocortisone (Hydrocortisone 0.5% Cr) 1 applic BID PRN TOP ITCHING Last administered on 03/21/19 16:30; Admin Dose 1 APPLIC; Start 03/17/19 at 13:00 Multivitamins Therapeutic (Theragran) 1 tab DAILY PO Last administered on 03/24/19 08:42; Admin Dose 1 TAB; Start 03/17/19 at 12:30 Ascorbic Acid (Vitamin C) 500 mg DAILY PO Last administered on 03/24/19 08:42; Admin Dose 500 MG; Start 03/17/19 at 12:30 Benazepril HCl (Lotensin) 10 mg DAILY PO Last administered on 03/24/19 08:42; Admin Dose 10 MG; Start 03/19/19 at 09:00 Morphine Sulfate (morphine) 1 mg Q4H PRN IV SEVERE PAIN LEVEL 7-10; Start 03/18/19 at 21:00 Acetaminophen/ Hydrocodone Bitart ([place] (5/325)) 2 tab Q4H PRN PO MODERATE PAIN LEVEL 4-6 Last administered on 03/20/19 11:42; Admin Dose 2 TAB; Start 03/18/19 at 19:00 Eye Lubricant (Artificial Tears Oph) 2 drop Q6H PRN BOTH EYES DRY EYES Last administered on 03/23/19 11:21; Admin Dose 2 DROP; Start 03/20/19 at 09:30 YEHUDA CRAMER MD Mar 25, 2019 09:05
[2019-03-25] MEDS: CLOPIDOGREL 75 MG TAB PO SCH (09:29)
[2019-03-25] MEDS: DOCUSATE SODIUM 100 MG CAP PO SCH ×2 (09:29→20:08)
[2019-03-25] MEDS: METOPROLOL (XL) 50 MG TAB PO SCH (09:29)
[2019-03-25] MEDS: MULTIVITAMINS THERAPEUTIC TAB PO SCH (09:30)
[2019-03-25] MEDS: ASCORBIC ACID 500 MG TAB PO SCH (09:30)
--- NOTE | 2019-03-25 13:38 | CONS ---
Assessment/Plan Assessment/Plan Hospital Course (Demo Recall) IMPRESSION: 1. Preoperative evaluation prior to surgery for traumatic L2 fracture with associated hematoma.-Now post- s/p t12-L4 arthrodesis 2. HTN-well controlled on current medications 3. History of percutaneous transluminal coronary angioplasty and stent placement, most recently 2014.-NL EF by echo and no sig valve abnl 4. 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 5. Possible dyslipidemia by medications although the patient denies. 6. Traumatic L2 fracture. 7. History of lymphedema per patient, currently resolved. 8. Ankylosing spondylitis by CT. 9. Severe osteoarthritis. 10. chest pain-resolved with no recurrence/negative trop's Recc: -Now in rehab with PT as patient will comply -Now on back on plavix -Continue BB/ACEI with reasonable BP control -pain control -Continue abx prophyaxis -local wound care -serial ecg's -PRN SL NTG -possible d/c 03/27/19 Consultation Date/Type/Reason Admit Date/Time Mar 16, 2019 at 16:00 Initial Consult Date 03/16/19 Type of Consult Cardiology Reason for Consultation HTN Requesting Provider: ALECIA SANTIAGO NP Date/Time of Note DATE: 03/25/19 TIME: 13:37 Exam/Review of Systems Vital Signs Vitals Vital Signs Date Temp Pulse Resp B/P (MAP) Pulse Ox O2 O2 Flow FiO2 Time Delivery Rate 03/25/19 97.9 98 18 127/64 97 Room Air 02:00 (85) 03/22/19 2.0 08:30 03/21/19 21 21:16 Intake and Output 03/24/19 03/24/19 03/25/19 1515:00 23:00 07:00 IntakeIntake Total 1200 ml OutputOutput Total 1200 ml BalanceBalance 0 ml Exam Exam Review of Systems: CONSTITUTIONAL: No fevers, chills. PULMONARY: No sob CARDIOVASCULAR: No chest pain/palpitations GASTROINTESTINAL: No nausea/vomiting. GENITOURINARY: No hematuria/dysuria. MUSCULOSKELETAL:mild back pain PSYCHIATRIC: The patient denies depression. NEUROLOGIC: No weakness Constitutional: alert Psych: no complaints Head: normocephalic ENMT: mucosa pink and moist Neck: supple, jvd (9 cm water) Respiratory: clear to auscultation Cardiovascular: regular rate and rhythm Gastrointestinal: soft, non-tender Musculoskeletal: muscle tone (normal) Extremities: edema (none) Neurological: other (No focal deficits) Medications Medications Current Medications Miscellaneous Information (Pending [facility] Order For Wound Care) This patient mejia... PRN PRN XX WOUND CARE; Start 03/16/19 at 16:30 Senna (Senokot) 1 tab HS PO Last administered on 03/24/19 21:31; Admin Dose 1 TAB; Start 03/16/19 at 21:00 Magnesium Hydroxide (Milk Of Mag) 30 ml BID PRN PO CONSTIPATION; Start 03/16/19 at 16:30 Lactulose (Enulose) 20 gm DAILY PRN PO CONSTIPATION; Start 03/16/19 at 16:30 Bisacodyl (Dulcolax Supp) 10 mg DAILY PRN [place] CONSTIPATION; Start 03/16/19 at 16:30 Docusate Sodium (Colace) 100 mg Q12 PO Last administered on 03/25/19 09:29; Admin Dose 100 MG; Start 03/16/19 at 21:00 Acetaminophen (Tylenol Tab) 325 mg Q6H PRN PO MILD PAIN(1-3)OR ELEVATED TEMP; Start 03/16/19 at 17:00 Bisacodyl (Dulcolax) 5 mg DAILY PRN PO CONSTIPATION Last administered on 03/18/19 08:53; Admin Dose 5 MG; Start 03/16/19 at 17:00 Acetaminophen/ Hydrocodone Bitart ([place] (5/325)) 1 tab Q6H PRN PO BREAKTHROUGH PAIN Last administered on 03/17/19at 02:30; Admin Dose 1 TAB; Start 03/16/19 at 17:00 Metoprolol Succinate (Toprol Xl) 50 mg DAILY PO Last administered on 03/25/19 09:29; Admin Dose 50 MG; Start 03/17/19 at 09:00 Nitroglycerin (Nitroglycerin (Sl Tab) 0.4 Mg) 1 tab Q5M PRN SL ANGINA; Start 03/16/19 at 17:00 Ondansetron HCl (Zofran Inj) 4 mg Q6H PRN IV NAUSEA AND/OR VOMITING Last administered on 03/17/19 09:19; Admin Dose 4 MG; Start 03/16/19 at 17:00 Trazodone HCl (Desyrel) 25 mg HS PO Last administered on 03/24/19 21:31; Admin Dose 25 MG; Start 03/16/19 at 21:00 Clopidogrel Bisulfate (plaVIX) 75 mg DAILY PO Last administered on 03/25/19 09 :29; Admin Dose 75 MG; Start 03/16/19 at 20:00 Al Hydrox/Mg Hydrox/Simethicone (Mag-Al Plus) 30 ml Q6H PRN PO GASTROINTESTINAL UPSET; Start 03/16/19 at 17:30 Silver Sulfadiazine (Thermazene 1% 25 Gm) 1 applic DAILY TOP Last administered on 03/25/19 09:31; Admin Dose 1 APPLIC; Start 03/17/19 at 09:00 Hydrocortisone (Hydrocortisone 0.5% Cr) 1 applic BID PRN TOP ITCHING Last admin istered on 03/21/19 16:30; Admin Dose 1 APPLIC; Start 03/17/19 at 13:00 Multivitamins Therapeutic (Theragran) 1 tab DAILY PO Last administered on 03/25/19 09:30; Admin Dose 1 TAB; Start 03/17/19 at 12:30 Ascorbic Acid (Vitamin C) 500 mg DAILY PO Last administered on 03/25/19 09:30; Admin Dose 500 MG; Start 03/17/19 at 12:30 Benazepril HCl (Lotensin) 10 mg DAILY PO Last administered on 03/24/19 08:42; Admin Dose 10 MG; Start 03/19/19 at 09:00 Morphine Sulfate (morphine) 1 mg Q4H PRN IV SEVERE PAIN LEVEL 7-10; Start 03/18/19 at 21:00 Acetaminophen/ Hydrocodone Bitart ([place] (5/325)) 2 tab Q4H PRN PO MODERATE PAIN LEVEL 4-6 Last administered on 03/20/19 11:42; Admin Dose 2 TAB; Start 03/18/19 at 19:00 Eye Lubricant (Artificial Tears Oph) 2 drop Q6H PRN BOTH EYES DRY EYES Last administered on 03/23/19 11:21; Admin Dose 2 DROP; Start 03/20/19 at 09:30 MICKEY SOLITARIO Mar 25, 2019 13:38
--- NOTE | 2019-03-25 13:40 | PN ---
Date/Time of Note Date/Time of Note DATE: 03/25/19 TIME: 13:39 Assessment/Plan VTE Prophylaxis Risk score (from Ns)>0 risk: 6 SCD applied (from Ns): Yes Pharmacological prophylaxis: NA/contraindicated Pharm contraindication: low risk/ambulating, surgical contra Lines/Catheters IV [facility]from [facility] Urinary Cath still in place: No Assessment/Plan Hospital Course SUBJECTIVE: No acute overnight episodes. OBJECTIVE: Vital signs-see below PHYSICAL EXAM: Constitutional: Elderly male,not in acute distress. HEENT: Head atraumatic and normocephalic. Eyes: Extraocular muscles intact. Anicteric sclerae. Pupils equal bilaterally, reactive to light. NECK: Supple without lymph node. CHEST: Clear and good breath sounds equally. No wheezing. No rhonchi. HEART: S1, S2. Regular rate and rhythm. ABDOMEN: Soft/non tender with no rebound tenderness. Bowel sounds were present. EXTREMITIES: Dressing LLE c/d/i. Lower back surgical site intact w/[place]. No cyanosis, clubbing or edema. NEUROLOGIC: Alert and oriented x3. No focal deficit. No sensory deficit. PSYCHOSOCIAL: No signs of depression. INTEGUMENTARY: No open wounds. ASSESSMENT AND PLAN: L2 chance fracture -s/p T12 to L4 posterolateral arthrodesis with allograft 03/11 -Followed by neurosurgery with plan for staple removal likely this wk -Wound care per NS instructions CAD/PCI w/stent -cont.antiplatelet (cleared from NS)/bb/ACEi Anemia,likely chronic -stable HTN -Continue beta-blockers/ NICHOLAS inhibitor DVT ppx:Ambulation Patient was seen in collaboration with DR. Mejia. Exam/Review of Systems Exam Vitals Vital Signs Date Temp Pulse Resp B/P (MAP) Pulse Ox O2 O2 Flow FiO2 Time Delivery Rate 03/25/19 97.9 98 18 127/64 97 Room Air 02:00 (85) 03/22/19 2.0 08:30 03/21/19 21 21:16 Intake and Output 03/24/19 03/24/19 03/25/19 1515:00 23:00 07:00 IntakeIntake Total 1200 ml OutputOutput Total 1200 ml BalanceBalance 0 ml Medications Medication Current Medications Miscellaneous Information [facility] This patient mejia... PRN PRN XX WOUND CARE; Start 03/16/19 at 16:30 Senna (Senokot) 1 tab HS PO Last administered on 03/24/19 21:31; Admin Dose 1 TAB; Start 03/16/19 at 21:00 Magnesium Hydroxide (Milk Of Mag) 30 ml BID PRN PO CONSTIPATION; Start 03/16/19 at 16:30 Lactulose (Enulose) 20 gm DAILY PRN PO CONSTIPATION; Start 03/16/19 at 16:30 Bisacodyl (Dulcolax Supp) 10 mg DAILY PRN [place] CONSTIPATION; Start 03/16/19 at 16:30 Docusate Sodium (Colace) 100 mg Q12 PO Last administered on 03/25/19 09:29; Admin Dose 100 MG; Start 03/16/19 at 21:00 Acetaminophen (Tylenol Tab) 325 mg Q6H PRN PO MILD PAIN(1-3)OR ELEVATED TEMP; Start 03/16/19 at 17:00 Bisacodyl (Dulcolax) 5 mg DAILY PRN PO CONSTIPATION Last administered on 03/18/19 08:53; Admin Dose 5 MG; Start 03/16/19 at 17:00 Acetaminophen/ Hydrocodone Bitart ([place] (5/325)) 1 tab Q6H PRN PO BREAKTHROUGH PAIN Last administered on 03/17/19 02:30; Admin Dose 1 TAB; Start 03/16/19 at 17:00 Metoprolol Succinate (Toprol Xl) 50 mg DAILY PO Last administered on 03/25/19 09:29; Admin Dose 50 MG; Start 03/17/19 at 09:00 Nitroglycerin (Nitroglycerin (Sl Tab) 0.4 Mg) 1 tab Q5M PRN SL ANGINA; Start 03/16/19 at 17:00 Ondansetron HCl (Zofran Inj) 4 mg Q6H PRN IV NAUSEA AND/OR VOMITING Last administered on 03/17/19 09:19; Admin Dose 4 MG; Start 03/16/19 at 17:00 Trazodone HCl (Desyrel) 25 mg HS PO Last administered on 03/24/19 21:31; Admin Dose 25 MG; Start 03/16/19 at 21:00 Clopidogrel Bisulfate (plaVIX) 75 mg DAILY PO Last administered on 03/25/19 09:29; Admin Dose 75 MG; Start 03/16/19 at 20:00 Al Hydrox/Mg Hydrox/Simethicone (Mag-Al Plus) 30 ml Q6H PRN PO GASTROINTESTINAL UPSET; Start 03/16/19 at 17:30 Silver Sulfadiazine (Thermazene 1% 25 Gm) 1 applic DAILY TOP Last administered on 03/25/19 09:31; Admin Dose 1 APPLIC; Start 03/17/19 at 09:00 Hydrocortisone (Hydrocortisone 0.5% Cr) 1 applic BID PRN TOP ITCHING Last administered on 03/21/19 16:30; Admin Dose 1 APPLIC; Start 03/17/19 at 13:00 Multivitamins Therapeutic (Theragran) 1 tab DAILY PO Last administered on 03/25/19 09:30; Admin Dose 1 TAB; Start 03/17/19 at 12:30 Ascorbic Acid (Vitamin C) 500 mg DAILY PO Last administered on 03/25/19 09:30; Admin Dose 500 MG; Start 03/17/19 at 12:30 Benazepril HCl (Lotensin) 10 mg DAILY PO Last administered on 03/24/19 08:42; Admin Dose 10 MG; Start 03/19/19 at 09:00 Morphine Sulfate (morphine) 1 mg Q4H PRN IV SEVERE PAIN LEVEL 7-10; Start 03/18/19 at 21:00 Acetaminophen/ Hydrocodone Bitart ([place] (5/325)) 2 tab Q4H PRN PO MODERATE PAIN LEVEL 4-6 Last administered on 03/20/19 11:42; Admin Dose 2 TAB; Start 03/18/19 at 19:00 Eye Lubricant (Artificial Tears Oph) 2 drop Q6H PRN BOTH EYES DRY EYES Last administered on 03/23/19 11:21; Admin Dose 2 DROP; Start 03/20/19 at 09:30 ALECIA SANTIAGO NP Mar 25, 2019 13:40
[2019-03-25 14:00] VITALS: BP 115/55; PULSE 107; RESP 18
[2019-03-25 19:57] VITALS: BP 115/60; PULSE 111; RESP 18
[2019-03-25] MEDS: SENNA TAB PO SCH (20:08)
[2019-03-25] MEDS: traZODone 50 MG TAB PO SCH (21:00)
[2019-03-26 02:00] VITALS: BP 128/65; PULSE 105; RESP 18
[2019-03-26 08:23] VITALS: BP 117/58; PULSE 90; RESP 18
[2019-03-26] MEDS: DOCUSATE SODIUM 100 MG CAP PO SCH ×2 (08:31→21:00)
[2019-03-26] MEDS: MULTIVITAMINS THERAPEUTIC TAB PO SCH (08:31)
[2019-03-26] MEDS: BENAZEPRIL 10 MG TAB PO SCH (08:32)
[2019-03-26] MEDS: CLOPIDOGREL 75 MG TAB PO SCH (08:32)
[2019-03-26] MEDS: METOPROLOL (XL) 50 MG TAB PO SCH (08:32)
[2019-03-26] MEDS: ASCORBIC ACID 500 MG TAB PO SCH (08:32)
[2019-03-26] MEDS: SILVER SULFADIAZINE 1% 25 GM CR TOP SCH (08:35)
--- NOTE | 2019-03-26 12:20 | PN ---
Date/Time of Note Date/Time of Note DATE: 03/26/19 TIME: 12:19 Assessment/Plan VTE Prophylaxis Risk score (from Ns)>0 risk: 7 SCD applied (from Ns): Yes Pharmacological prophylaxis: NA/contraindicated Pharm contraindication: low risk/ambulating Lines/Catheters IV C[facility]ter Type [facility]from [facility] Saline Lock Urinary Cath still in place: No Assessment/Plan Hospital Course SUBJECTIVE: No acute overnight episodes. OBJECTIVE: Vital signs-see below PHYSICAL EXAM: Constitutional: Elderly male,not in acute distress. HEENT: Head atraumatic and normocephalic. Eyes: Extraocular muscles intact. Anicteric sclerae. Pupils equal bilaterally, reactive to light. NECK: Supple without lymph node. CHEST: Clear and good breath sounds equally. No wheezing. No rhonchi. HEART: S1, S2. Regular rate and rhythm. ABDOMEN: Soft/non tender with no rebound tenderness. Bowel sounds were present. EXTREMITIES: Dressing LLE c/d/i. Lower back surgical site intact w/[place]errat. No cyanosis, clubbing or edema. NEUROLOGIC: Alert and oriented x3. No focal deficit. No sensory deficit. PSYCHOSOCIAL: No signs of depression. INTEGUMENTARY: No open wounds. ASSESSMENT AND PLAN: L2 chance fracture -s/p T12 to L4 posterolateral arthrodesis with allograft 03/11 -Followed by neurosurgery with plan for staple removal likely this wk -Wound care per NS instructions CAD/PCI w/stent -cont.antiplatelet (cleared from NS)/bb/ACEi Anemia,likely chronic -stable HTN -Continue beta-blockers/ NICHOLAS inhibitor DVT ppx:Ambulation Patient was seen in collaboration with DR. Mejia. Exam/Review of Systems Exam Vitals Vital Signs Date Temp Pulse Resp B/P (MAP) Pulse Ox O2 O2 Flow FiO2 Time Delivery Rate 03/26/19 98.2 90 18 117/58 98 Room Air 08:23 (77) 03/22/19 2.0 08:30 Intake and Output 03/25/19 03/25/19 03/26/19 1515:00 23:00 07:00 IntakeIntake Total 1200 ml 780 ml 600 ml OutputOutput Total 570 ml 100 ml BalanceBalance 1200 ml 210 ml 500 ml Medications Medication Current Medications Miscellaneous Information [facility] This patient mejia... PRN PRN XX WOUND CARE; Start 03/16/19 at 16:30 Senna (Senokot) 1 tab HS PO Last administered on 03/24/19 21:31; Admin Dose 1 TAB; Start 03/16/19 at 21:00 Magnesium Hydroxide (Milk Of Mag) 30 ml BID PRN PO CONSTIPATION; Start 03/16/19 at 16:30 Lactulose (Enulose) 20 gm DAILY PRN PO CONSTIPATION; Start 03/16/19 at 16:30 Bisacodyl (Dulcolax Supp) 10 mg DAILY PRN [place] CONSTIPATION; Start 03/16/19 at 16:30 Docusate Sodium (Colace) 100 mg Q12 PO Last administered on 03/26/19 08:31; Admin Dose 100 MG; Start 03/16/19 at 21:00 Acetaminophen (Tylenol Tab) 325 mg Q6H PRN PO MILD PAIN(1-3)OR ELEVATED TEMP; Start 03/16/19 at 17:00 Bisacodyl (Dulcolax) 5 mg DAILY PRN PO CONSTIPATION Last administered on 03/18/19 08:53; Admin Dose 5 MG; Start 03/16/19 at 17:00 Acetaminophen/ Hydrocodone Bitart ([place] (5/325)) 1 tab Q6H PRN PO BREAKTHROUGH PAIN Last administered on 03/17/19 02:30; Admin Dose 1 TAB; Start 03/16/19 at 17:00 Metoprolol Succinate (Toprol Xl) 50 mg DAILY PO Last administered on 03/26/19 08:32; Admin Dose 50 MG; Start 03/17/19 at 09:00 Nitroglycerin (Nitroglycerin (Sl Tab) 0.4 Mg) 1 tab Q5M PRN SL ANGINA; Start 03/16/19 at 17:00 Ondansetron HCl (Zofran Inj) 4 mg Q6H PRN IV NAUSEA AND/OR VOMITING Last administered on 03/17/19 09:19; Admin Dose 4 MG; Start 03/16/19 at 17:00 Trazodone HCl (Desyrel) 25 mg HS PO Last administered on 03/24/19 21:31; Admin Dose 25 MG; Start 03/16/19 at 21:00 Clopidogrel Bisulfate (plaVIX) 75 mg DAILY PO Last administered on 03/26/19 08:32; Admin Dose 75 MG; Start 03/16/19 at 20:00 Al Hydrox/Mg Hydrox/Simethicone (Mag-Al Plus) 30 ml Q6H PRN PO GASTROINTESTINAL UPSET; Start 03/16/19 at 17:30 Silver Sulfadiazine (Thermazene 1% 25 Gm) 1 applic DAILY TOP Last administered on 03/26/19 08:35; Admin Dose 1 APPLIC; Start 03/17/19 at 09:00 Hydrocortisone (Hydrocortisone 0.5% Cr) 1 applic BID PRN [place] ITCHING Last administered on 03/21/19 16:30; Admin Dose 1 APPLIC; Start 03/17/19 at 13:00 Multivitamins Therapeutic (Theragran) 1 tab DAILY PO Last administered on 03/26/19 08:31; Admin Dose 1 TAB; Start 03/17/19 at 12:30 Ascorbic Acid (Vitamin C) 500 mg DAILY PO Last administered on 03/26/19 08:32; Admin Dose 500 MG; Start 03/17/19 at 12:30 Benazepril HCl (Lotensin) 10 mg DAILY PO Last administered on 03/26/19 08:32; Admin Dose 10 MG; Start 03/19/19 at 09:00 Morphine Sulfate (morphine) 1 mg Q4H PRN IV SEVERE PAIN LEVEL 7-10; Start 03/18/19 at 21:00 Acetaminophen/ Hydrocodone Bitart ([place] (5/325)) 2 tab Q4H PRN PO MODERATE PAIN LEVEL 4-6 Last administered on 03/20/19 11:42; Admin Dose 2 TAB; Start 03/18/19 at 19:00 Eye Lubricant (Artificial Tears Oph) 2 drop Q6H PRN BOTH EYES DRY EYES Last administered on 03/23/19 11:21; Admin Dose 2 DROP; Start 03/20/19 at 09:30 ALECIA SANTIAGO NP Mar 26, 2019 12:19
--- NOTE | 2019-03-26 13:07 | CONS ---
Consult Date/Type/Reason Admit Date/Time Mar 16, 2019 at 16:00 Initial Consult Date Requesting Provider: ALECIA SANTIAGO NP Date/Time of Note DATE: 03/26/19 TIME: 13:06 Subjective NO acute events - BP in good range - pt much better overall - con't rehab now. ROS: No fever, no chills, no nausea, no vomiting, no diarrhea/constipation No recent weight changes No chest pain, no PND, no orthopnea - mild congestion, better No dizziness, blurred vision No thirst, no heat or cold intolerance Objective Vitals Vital Signs Date Temp Pulse Resp B/P (MAP) Pulse Ox O2 O2 Flow FiO2 Time Delivery Rate 03/26/19 98.2 90 18 117/58 98 Room Air 08:23 (77) 03/22/19 2.0 08:30 Intake and Output 03/25/19 03/25/19 03/26/19 1515:00 23:00 07:00 IntakeIntake Total 1200 ml 780 ml 600 ml OutputOutput Total 570 ml 100 ml BalanceBalance 1200 ml 210 ml 500 ml Exam General: WN/WD/NAD, AOx 3 HEENT: Unicetric/atraumatic/EOMI (follows commands) NECK: JVD elevated, no thyromegaly Lymph: no lymphadenopathy HEART: regular with no S3, II/ systolic murmur at apex LUNGS: Coarse sounds ABD: soft, NT, ND, +BS : Intact Neuro: non focal SKIN: chronic changes EXT: trace edema Results/Medications Home Meds Reported Medications Tamsulosin Hcl* (Flomax*) 0.4 Mg Cap.er.24h, 0.4 MG PO NEEDED, CAP 03/09/19 Clopidogrel Bisulfate* (Clopidogrel Bisulfate*) 75 Mg Tablet, 75 MG PO DAILY, #30 TAB 03/09/19 Metoprolol Succinate* (Toprol XL*) 50 Mg Tab.er.24h, 50 MG PO DAILY, #30 TAB 03/09/19 Medications Current Medications Miscellaneous Information [facility] This patient mejia... PRN PRN XX WOUND CARE; Start 03/16/19 at 16:30 Senna (Senokot) 1 tab HS PO Last administered on 03/24/19at 21:31; Admin Dose 1 TAB; Start 03/16/19 at 21:00 Magnesium Hydroxide (Milk Of Mag) 30 ml BID PRN PO CONSTIPATION; Start 03/16/19 at 16:30 Lactulose (Enulose) 20 gm DAILY PRN PO CONSTIPATION; Start 03/16/19 at 16:30 Bisacodyl (Dulcolax Supp) 10 mg DAILY PRN [place] CONSTIPATION; Start 03/16/19 at 16:30 Docusate Sodium (Colace) 100 mg Q12 PO Last administered on 03/26/19 08:31; Admin Dose 100 MG; Start 03/16/19 at 21:00 Acetaminophen (Tylenol Tab) 325 mg Q6H PRN PO MILD PAIN(1-3)OR ELEVATED TEMP; Start 03/16/19 at 17:00 Bisacodyl (Dulcolax) 5 mg DAILY PRN PO CONSTIPATION Last administered on 03/18/19 08:53; Admin Dose 5 MG; Start 03/16/19 at 17:00 Acetaminophen/ Hydrocodone Bitart ([place] (5/325)) 1 tab Q6H PRN PO BREAKTHROUGH PAIN Last administered on 03/17/19 02:30; Admin Dose 1 TAB; Start 03/16/19 at 17:00 Metoprolol Succinate (Toprol Xl) 50 mg DAILY PO Last administered on 03/26/19 08:32; Admin Dose 50 MG; Start 03/17/19 at 09:00 Nitroglycerin (Nitroglycerin (Sl Tab) 0.4 Mg) 1 tab Q5M PRN SL ANGINA; Start 03/16/19 at 17:00 Ondansetron HCl (Zofran Inj) 4 mg Q6H PRN IV NAUSEA AND/OR VOMITING Last admi nistered on 03/17/19 09:19; Admin Dose 4 MG; Start 03/16/19 at 17:00 Trazodone HCl (Desyrel) 25 mg HS PO Last administered on 03/24/19 21:31; Admin Dose 25 MG; Start 03/16/19 at 21:00 Clopidogrel Bisulfate (plaVIX) 75 mg DAILY PO Last administered on 03/26/19 08:32; Admin Dose 75 MG; Start 03/16/19 at 20:00 Al Hydrox/Mg Hydrox/Simethicone (Mag-Al Plus) 30 ml Q6H PRN PO GASTROINTESTINAL UPSET; Start 03/16/19 at 17:30 Silver Sulfadiazine (Thermazene 1% 25 Gm) 1 applic DAILY TOP Last administered on 03/26/19 08:35; Admin Dose 1 APPLIC; Start 03/17/19 at 09:00 Hydrocortisone (Hydrocortisone 0.5% Cr) 1 applic BID PRN TOP ITCHING Last administered on 03/21/19 16:30; Admin Dose 1 APPLIC; Start 03/17/19 at 13:00 Multivitamins Therapeutic (Theragran) 1 tab DAILY PO Last administered on 03/26/19 08:31; Admin Dose 1 TAB; Start 03/17/19 at 12:30 Ascorbic Acid (Vitamin C) 500 mg DAILY PO Last administered on 03/26/19 08:32; Admin Dose 500 MG; Start 03/17/19 at 12:30 Benazepril HCl (Lotensin) 10 mg DAILY PO Last administered on 03/26/19 08:32; Admin Dose 10 MG; Start 03/19/19 at 09:00 Morphine Sulfate (morphine) 1 mg Q4H PRN IV SEVERE PAIN LEVEL 7-10; Start 03/18/19 at 21:00 Acetaminophen/ Hydrocodone Bitart ([place] (5/325)) 2 tab Q4H PRN PO MODERATE PAIN LEVEL 4-6 Last administered on 03/20/19 11:42; Admin Dose 2 TAB; Start 03/18/19 at 19:00 Eye Lubricant (Artificial Tears Oph) 2 drop Q6H PRN BOTH EYES DRY EYES Last administered on 03/23/19 11:21; Admin Dose 2 DROP; Start 03/20/19 at 09:30 Assessment/Plan Hospital Course (Demo Recall) 1. Preoperative evaluation prior to surgery for traumatic L2 fracture with associated hematoma.-Now post- s/p t12-L4 arthrodesis - con't paib Rx - rehab to follow. Doing well in rehab - beginning to ambulate. Con't recovery - tolerating increased work load. Con't rehab. Much improved - dispo planned for tomorrow. 2. No portal hypertension, but on a beta carlos at baseline. BP stable now. Rate controlled. On meds. OFF TELE now - in sinus by exam. NO CP now. 3. History of percutaneous transluminal coronary angioplasty and stent placement, most recently 2014.-NL EF by echo and no sig valve abnl - no CP, no intervention planned. 4. 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 NO CP now. Treated. 5. Possible dyslipidemia by medications although the patient denies. 6. Traumatic L2 fracture. 7. History of lymphedema per patient, currently resolved. None now. 8. Ankylosing spondylitis by CT. 9. Severe osteoarthritis- con't rehab. Pain controlled. 10. chest pain- described as chest tightness - resolved. Doubt ACS - no int ervention planned. ANURADHA SEGURA MD Mar 26, 2019 13:07
[2019-03-26 14:00] VITALS: BP 126/56; PULSE 90; RESP 18
--- NOTE | 2019-03-26 15:30 | PN ---
Date/Time of Note Date/Time of Note DATE: 03/26/19 TIME: 15:29 Subjective No new complaints Objective Vital Signs Date Temp Pulse Resp B/P (MAP) Pulse Ox O2 O2 Flow FiO2 Time Delivery Rate 03/26/19 98.8 90 18 126/56 97 14:00 (79) 03/26/19 Room Air 08:23 03/22/19 2.0 08:30 Intake and Output 03/25/19 03/25/19 03/26/19 1515:00 23:00 07:00 IntakeIntake Total 1200 ml 780 ml 600 ml OutputOutput Total 570 ml 100 ml BalanceBalance 1200 ml 210 ml 500 ml Exam pulm- cta sba ambulation Results/Medications Medications Current Medications Miscellaneous Information (Pending [facility] Order For Wound Care) This patient mejia... PRN PRN XX WOUND CARE; Start 03/16/19 at 16:30 Senna (Senokot) 1 tab HS PO Last administered on 03/24/19at 21:31; Admin Dose 1 TAB; Start 03/16/19 at 21:00 Magnesium Hydroxide (Milk Of Mag) 30 ml BID PRN PO CONSTIPATION; Start 03/16/19 at 16:30 Lactulose (Enulose) 20 gm DAILY PRN PO CONSTIPATION; Start 03/16/19 at 16:30 Bisacodyl (Dulcolax Supp) 10 mg DAILY PRN [place] CONSTIPATION; Start 03/16/19 at 16:30 Docusate Sodium (Colace) 100 mg Q12 PO Last administered on 03/26/19at 08:31; Admin Dose 100 MG; Start 03/16/19 at 21:00 Acetaminophen (Tylenol Tab) 325 mg Q6H PRN PO MILD PAIN(1-3)OR ELEVATED TEMP; Start 03/16/19 at 17:00 Bisacodyl (Dulcolax) 5 mg DAILY PRN PO CONSTIPATION Last administered on 03/18/19at 08:53; Admin Dose 5 MG; Start 03/16/19 at 17:00 Acetaminophen/ Hydrocodone Bitart ([place] (5/325)) 1 tab Q6H PRN PO BREAKTHROUGH PAIN Last administered on 03/17/19at 02:30; Admin Dose 1 TAB; Start 03/16/19 at 17:00 Metoprolol Succinate (Toprol Xl) 50 mg DAILY PO Last administered on 03/26/19 08:32; Admin Dose 50 MG; Start 03/17/19 at 09:00 Nitroglycerin (Nitroglycerin (Sl Tab) 0.4 Mg) 1 tab Q5M PRN SL ANGINA; Start 03/16/19 at 17:00 Ondansetron HCl (Zofran Inj) 4 mg Q6H PRN IV NAUSEA AND/OR VOMITING Last administered on 03/17/19 09:19; Admin Dose 4 MG; Start 03/16/19 at 17:00 Trazodone HCl (Desyrel) 25 mg HS PO Last administered on 03/24/19 21:31; Admin Dose 25 MG; Start 03/16/19 at 21:00 Clopidogrel Bisulfate (plaVIX) 75 mg DAILY PO Last administered on 03/26/19 08:32; Admin Dose 75 MG; Start 03/16/19 at 20:00 Al Hydrox/Mg Hydrox/Simethicone (Mag-Al Plus) 30 ml Q6H PRN PO GASTROINTESTINAL UPSET; Start 03/16/19 at 17:30 Silver Sulfadiazine (Thermazene 1% 25 Gm) 1 applic DAILY TOP Last administered on 03/26/19 08:35; Admin Dose 1 APPLIC; Start 03/17/19 at 09:00 Hydrocortisone (Hydrocortisone 0.5% Cr) 1 applic BID PRN TOP ITCHING Last administered on 03/21/19 16:30; Admin Dose 1 APPLIC; Start 03/17/19 at 13:00 Multivitamins Therapeutic (Theragran) 1 tab DAILY PO Last administered on 03/26/19 08:31; Admin Dose 1 TAB; Start 03/17/19 at 12:30 Ascorbic Acid (Vitamin C) 500 mg DAILY PO Last administered on 03/26/19 08:32; Admin Dose 500 MG; Start 03/17/19 at 12:30 Benazepril HCl (Lotensin) 10 mg DAILY PO Last administered on 03/26/19 08:32; Admin Dose 10 MG; Start 03/19/19 at 09:00 Morphine Sulfate (morphine) 1 mg Q4H PRN IV SEVERE PAIN LEVEL 7-10; Start 03/18/19 at 21:00 Acetaminophen/ Hydrocodone Bitart ([place] (5/325)) 2 tab Q4H PRN PO MODERATE PAIN LEVEL 4-6 Last administered on 03/20/19at 11:42; Admin Dose 2 TAB; Start 03/18/19 at 19:00 Eye Lubricant (Artificial Tears Oph) 2 drop Q6H PRN BOTH EYES DRY EYES Last administered on 03/23/19at 11:21; Admin Dose 2 DROP; Start 03/20/19 at 09:30 Assessment/Plan Additional Assessment/Plan Rehab- Metabolic encephalopathy, status post thoracolumbar fusion for lumbar fracture with paraspinal hematoma Continue rehab activities Ankylosing spondylitis. Coronary artery disease. Hyperlipidemia. Severe osteoarthritis affecting multiple joints including right shoulder with decreased range of motion. Multiple skin abrasions. YEHUDA CRAMER MD Mar 26, 2019 15:30
[2019-03-26 19:45] VITALS: BP 118/62; PULSE 95; RESP 18
[2019-03-26] MEDS: traZODone 50 MG TAB PO SCH (21:00)
[2019-03-26] MEDS: SENNA TAB PO SCH (21:00)
[2019-03-27 02:00] VITALS: BP 128/64; PULSE 97; RESP 18
[2019-03-27 07:30] VITALS: BP 116/55; PULSE 79; RESP 20
--- NOTE | 2019-03-27 09:13 | CONS ---
Assessment/Plan Assessment/Plan Assessment/Plan (Daily) 84 yo s/p T12-L4 PSIF for L2 chance fracture - doing well - d/c home today - standing upright xrays before d/c - will follow-up in 1 month as outpatient Consultation Date/Type/Reason Admit Date/Time Mar 16, 2019 at 16:00 Initial Consult Date Type of Consult Neurosurgery Requesting Provider: ALECIA SANTIAGO NP Date/Time of Note DATE: 03/27/19 TIME: 09:11 24 HR Interval Summary Free Text/Dictation Doing well, walking with assistance and walker. Abrasions healing. Exam/Review of Systems Exam Vitals Vital Signs Date Temp Pulse Resp B/P (MAP) Pulse Ox O2 O2 Flow FiO2 Time Delivery Rate 03/27/19 97.5 79 20 116/55 98 Room Air 07:30 (75) Intake and Output 03/26/19 03/26/19 03/27/19 1515:00 23:00 07:00 IntakeIntake Total 440 ml 240 ml OutputOutput Total 200 ml 200 ml 200 ml BalanceBalance 240 ml 40 ml -200 ml Exam 01/31 incision c/d/i [place]at removed Medications Medication Current Medications Miscellaneous Information (Pending [facility] Order For Wound Care) This patient mejia... PRN PRN XX WOUND CARE; Start 03/16/19 at 16:30 Senna (Senokot) 1 tab HS PO Last administered on 03/24/19at 21:31; Admin Dose 1 TAB; Start 03/16/19 at 21:00 Magnesium Hydroxide (Milk Of Mag) 30 ml BID PRN PO CONSTIPATION; Start 03/16/19 at 16:30 Lactulose (Enulose) 20 gm DAILY PRN PO CONSTIPATION; Start 03/16/19 at 16:30 Bisacodyl (Dulcolax Supp) 10 mg DAILY PRN [place] CONSTIPATION; Start 03/16/19 at 16:30 Docusate Sodium (Colace) 100 mg Q12 PO Last administered on 03/26/19at 08:31; Admin Dose 100 MG; Start 03/16/19 at 21:00 Acetaminophen (Tylenol Tab) 325 mg Q6H PRN PO MILD PAIN(1-3)OR ELEVATED TEMP; Start 03/16/19 at 17:00 Bisacodyl (Dulcolax) 5 mg DAILY PRN PO CONSTIPATION Last administered on 03/18/19 08:53; Admin Dose 5 MG; Start 03/16/19 at 17:00 Acetaminophen/ Hydrocodone Bitart ([place] (5/325)) 1 tab Q6H PRN PO BREAKTHROUGH PAIN Last administered on 03/17/19 02:30; Admin Dose 1 TAB; Start 03/16/19 at 17:00 Metoprolol Succinate (Toprol Xl) 50 mg DAILY PO Last administered on 03/26/19 08:32; Admin Dose 50 MG; Start 03/17/19 at 09:00 Nitroglycerin (Nitroglycerin (Sl Tab) 0.4 Mg) 1 tab Q5M PRN SL ANGINA; Start 03/16/19 at 17:00 Ondansetron HCl (Zofran Inj) 4 mg Q6H PRN IV NAUSEA AND/OR VOMITING Last administered on 03/17/19 09:19; Admin Dose 4 MG; Start 03/16/19 at 17:00 Trazodone HCl (Desyrel) 25 mg HS PO Last administered on 03/24/19 21:31; Admin Dose 25 MG; Start 03/16/19 at 21:00 Clopidogrel Bisulfate (plaVIX) 75 mg DAILY PO Last administered on 03/26/19 08:32; Admin Dose 75 MG; Start 03/16/19 at 20:00 Al Hydrox/Mg Hydrox/Simethicone (Mag-Al Plus) 30 ml Q6H PRN PO GASTROINTESTINAL UPSET; Start 03/16/19 at 17:30 Silver Sulfadiazine (Thermazene 1% 25 Gm) 1 applic DAILY TOP Last administered on 03/26/19 08:35; Admin Dose 1 APPLIC; Start 03/17/19 at 09:00 Hydrocortisone (Hydrocortisone 0.5% Cr) 1 applic BID PRN [place] ITCHING Last administered on 03/21/19 16:30; Admin Dose 1 APPLIC; Start 03/17/19 at 13:00 Multivitamins Therapeutic (Theragran) 1 tab DAILY PO Last administered on 03/26/19 08:31; Admin Dose 1 TAB; Start 03/17/19 at 12:30 Ascorbic Acid (Vitamin C) 500 mg DAILY PO Last administered on 03/26/19 08:32; Admin Dose 500 MG; Start 03/17/19 at 12:30 Benazepril HCl (Lotensin) 10 mg DAILY PO Last administered on 03/26/19 08:32; Admin Dose 10 MG; Start 03/19/19 at 09:00 Morphine Sulfate (morphine) 1 mg Q4H PRN IV SEVERE PAIN LEVEL 7-10; Start 03/18/19 at 21:00 Acetaminophen/ Hydrocodone Bitart ([place] (5/325)) 2 tab Q4H PRN PO MODERATE PAIN LEVEL 4-6 Last administered on 03/20/19at 11:42; Admin Dose 2 TAB; Start 03/18/19 at 19:00 Eye Lubricant (Artificial Tears Oph) 2 drop Q6H PRN BOTH EYES DRY EYES Last administered on 03/23/19 11:21; Admin Dose 2 DROP; Start 03/20/19 at 09:30 REYNA STEELE MD Mar 27, 2019 09:13
[2019-03-27] MEDS: DOCUSATE SODIUM 100 MG CAP PO SCH (09:53)
[2019-03-27] MEDS: MULTIVITAMINS THERAPEUTIC TAB PO SCH (09:53)
[2019-03-27] MEDS: ASCORBIC ACID 500 MG TAB PO SCH (09:54)
[2019-03-27] MEDS: BENAZEPRIL 10 MG TAB PO SCH (09:54)
[2019-03-27] MEDS: CLOPIDOGREL 75 MG TAB PO SCH (09:54)
[2019-03-27] MEDS: METOPROLOL (XL) 50 MG TAB PO SCH (09:55)
[2019-03-27] MEDS: SILVER SULFADIAZINE 1% 25 GM CR TOP SCH (09:56)
--- NOTE | 2019-03-27 09:58 | DS ---
Date/Time of Note Date/Time of Note DATE: 03/27/19 TIME: 09:57 Discharge Summary Admission/Discharge Info Admit Date/Time Mar 16, 2019 at 16:00 Discharge Date/Time Discharge Diagnosis 1. Metabolic encephalopathy, presumed medication related, resolved 2. The patient is status post thoracolumbar fusion for lumbar fracture with paraspinal hematoma. 3. Ankylosing spondylitis. 4. Hyperlipidemia. 5. Severe osteoarthritis affecting multiple joints including right shoulder with decreased range of motion. 6. Multiple skin abrasions, improving 7. Coronary artery disease. 7. Improvements in self-care, mobility, and cognition. Patient Condition: Good Hospital Course The patient was admitted for comprehensive interdisciplinary rehabilitation and made steady functional gains from a Max level to a SBA level for self care tasks and mobility including ambulating over 150 feet with the use of a FWW. Patient's cognition improved to baseline by discharge. Patient's skin integrity improved with wound care. Patient is being discharged home with the recommendation of home health PT, OT and RN follow up. The DC meds are per the medication reconciliation sheet. The discharge equipment recommendations include: FWW, BSC, shower chair. The patient will follow up with PMD upon DC. Home Meds Reported Medications Tamsulosin Hcl* (Flomax*) 0.4 Mg Cap.er.24h, 0.4 MG PO NEEDED, CAP 03/09/19 Clopidogrel Bisulfate* (Clopidogrel Bisulfate*) 75 Mg Tablet, 75 MG PO DAILY, #30 TAB 03/09/19 Metoprolol Succinate* (Toprol XL*) 50 Mg Tab.er.24h, 50 MG PO DAILY, #30 TAB 03/09/19 Primary Care Provider YEHUDA Underwood MD Mar 27, 2019 09:58
--- NOTE | 2019-03-27 11:47 | PN ---
Date/Time of Note Date/Time of Note DATE: 03/27/19 TIME: 11:45 Assessment/Plan VTE Prophylaxis Risk score (from Ns)>0 risk: 7 SCD applied (from Ns): Yes Pharmacological prophylaxis: NA/contraindicated Pharm contraindication: low risk/ambulating Lines/Catheters IV [facility] Saline Lock Urinary Cath still in place: No Assessment/Plan Hospital Course SUBJECTIVE: No acute overnight episodes.for dc today. OBJECTIVE: Vital signs-see below PHYSICAL EXAM: Constitutional: Elderly male,not in acute distress. HEENT: Head atraumatic and normocephalic. Eyes: Extraocular muscles intact. Anicteric sclerae. Pupils equal bilaterally, reactive to light. NECK: Supple without lymph node. CHEST: Clear and good breath sounds equally. No wheezing. No rhonchi. HEART: S1, S2. Regular rate and rhythm. ABDOMEN: Soft/non tender with no rebound tenderness. Bowel sounds were present. EXTREMITIES: Dressing LLE c/d/i. Lower back surgical site intact w/[place]. No cyanosis, clubbing or edema. NEUROLOGIC: Alert and oriented x3. No focal deficit. No sensory deficit. PSYCHOSOCIAL: No signs of depression. INTEGUMENTARY: No open wounds. ASSESSMENT AND PLAN: L2 chance fracture -s/p T12 to L4 posterolateral arthrodesis with allograft 03/11 -staple removed today by -Wound care per NS instructions -f/u NS in 2 weeks CAD/PCI w/stent -cont.antiplatelet (cleared from NS)/bb/ACEi Anemia,likely chronic -stable HTN -Continue beta-blockers/ NICHOLAS inhibitor DVT ppx:Ambulation Agree w/dc plan.pt to f/u NS in 2wks Patient was seen in collaboration with DR. Mejia. Exam/Review of Systems Exam Vitals Vital Signs Date Temp Pulse Resp B/P (MAP) Pulse Ox O2 O2 Flow FiO2 Time Delivery Rate 03/27/19 97.5 79 20 116/55 98 Room Air 07:30 (75) Intake and Output 03/26/19 03/26/19 03/27/19 1515:00 23:00 07:00 IntakeIntake Total 440 ml 240 ml OutputOutput Total 200 ml 200 ml 200 ml BalanceBalance 240 ml 40 ml -200 ml Medications Medication Current Medications Miscellaneous Information (Pending Santyl Order For Wound Care) This patient mejia... PRN PRN XX WOUND CARE; Start 03/16/19 at 16:30 Senna (Senokot) 1 tab HS PO Last administered on 03/24/19 21:31; Admin Dose 1 TAB; Start 03/16/19 at 21:00 Magnesium Hydroxide (Milk Of Mag) 30 ml BID PRN PO CONSTIPATION; Start 03/16/19 at 16:30 Lactulose (Enulose) 20 gm DAILY PRN PO CONSTIPATION; Start 03/16/19 at 16:30 Bisacodyl (Dulcolax Supp) 10 mg DAILY PRN [place] CONSTIPATION; Start 03/16/19 at 16:30 Docusate Sodium (Colace) 100 mg Q12 PO Last administered on 03/27/19 09:53; Admin Dose 100 MG; Start 03/16/19 at 21:00 Acetaminophen (Tylenol Tab) 325 mg Q6H PRN PO MILD PAIN(1-3)OR ELEVATED TEMP; Start 03/16/19 at 17:00 Bisacodyl (Dulcolax) 5 mg DAILY PRN PO CONSTIPATION Last administered on 03/18/19 08:53; Admin Dose 5 MG; Start 03/16/19 at 17:00 Acetaminophen/ Hydrocodone Bitart ([place] (5/325)) 1 tab Q6H PRN PO BREAKTHROUGH PAIN Last administered on 03/17/19 02:30; Admin Dose 1 TAB; Start 03/16/19 at 17:00 Metoprolol Succinate (Toprol Xl) 50 mg DAILY PO Last administered on 03/27/19 09:55; Admin Dose 50 MG; Start 03/17/19 at 09:00 Nitroglycerin (Nitroglycerin (Sl Tab) 0.4 Mg) 1 tab Q5M PRN SL ANGINA; Start 03/16/19 at 17:00 Ondansetron HCl (Zofran Inj) 4 mg Q6H PRN IV NAUSEA AND/OR VOMITING Last administered on 03/17/19 09:19; Admin Dose 4 MG; Start 03/16/19 at 17:00 Trazodone HCl (Desyrel) 25 mg HS PO Last administered on 03/24/19 21:31; Admin Dose 25 MG; Start 03/16/19 at 21:00 Clopidogrel Bisulfate (plaVIX) 75 mg DAILY PO Last administered on 03/27/19 09:54; Admin Dose 75 MG; Start 03/16/19 at 20:00 Al Hydrox/Mg Hydrox/Simethicone (Mag-Al Plus) 30 ml Q6H PRN PO GASTROINTESTINAL UPSET; Start 03/16/19 at 17:30 Silver Sulfadiazine (Thermazene 1% 25 Gm) 1 applic DAILY TOP Last administered on 03/27/19 09:56; Admin Dose 1 APPLIC; Start 03/17/19 at 09:00 Hydrocortisone (Hydrocortisone 0.5% Cr) 1 applic BID PRN TOP ITCHING Last administered on 03/21/19 16:30; Admin Dose 1 APPLIC; Start 03/17/19 at 13:00 Multivitamins Therapeutic (Theragran) 1 tab DAILY PO Last administered on 03/27/19 09:53; Admin Dose 1 TAB; Start 03/17/19 at 12:30 Ascorbic Acid (Vitamin C) 500 mg DAILY PO Last administered on 03/27/19 09:54; Admin Dose 500 MG; Start 03/17/19 at 12:30 Benazepril HCl (Lotensin) 10 mg DAILY PO Last administered on 03/27/19 09:54; Admin Dose 10 MG; Start 03/19/19 at 09:00 Morphine Sulfate (morphine) 1 mg Q4H PRN IV SEVERE PAIN LEVEL 7-10; Start 02/28 at 21:00 Acetaminophen/ Hydrocodone Bitart ([place] (5/325)) 2 tab Q4H PRN PO MODERATE PAIN LEVEL 4-6 Last administered on 03/20/19 11:42; Admin Dose 2 TAB; Start 03/18/19 at 19:00 Eye Lubricant (Artificial Tears Oph) 2 drop Q6H PRN BOTH EYES DRY EYES Last administered on 03/23/19 11:21; Admin Dose 2 DROP; Start 03/20/19 at 09:30 ALECIA SANTIAGO NP Mar 27, 2019 11:47
== END 2019-03-27 11:30 | disposition home health service (06) | DRG 559 ==
LOC: VRC 03-16 16:00
PROVIDERS: ADMIT Physical Medicine & Rehabilitation; ATTEND Internal Medicine Pulmonary Disease
DX: S22.088D Other fracture of T11-T12 vertebra, subsequent encounter for fracture with routine healing (principal); G92 Toxic encephalopathy; M45.9 Ankylosing spondylitis of unspecified sites in spine; I25.10 Atherosclerotic heart disease of native coronary artery without angina pectoris; E78.5 Hyperlipidemia, unspecified; M19.011 Primary osteoarthritis, right shoulder; D64.89 Other specified anemias; I10 Essential (primary) hypertension; I25.2 Old myocardial infarction; Z95.5 Presence of coronary angioplasty implant and graft; R07.9 Chest pain, unspecified; S32.028D Other fracture of second lumbar vertebra, subsequent encounter for fracture with routine healing; F06.31 Mood disorder due to known physiological condition with depressive features
CPT/HCPCS: 72100; 80053; 81001; 81003; 85025; 87081; 87086; 97110; 97112; 97116; 97163; 97166; 97530; 97535; J2270; J2405